=== PATIENT | female | born 1940 | race Caucasian/White ===

== ENCOUNTER 2016-05-31 19:12 | Inpatient (IN) ==
[2016-05-31 20:02] LABS: MANUAL DIFF NEEDED? NO
[2016-05-31 20:09] LABS: BASO% 0.1 % (0.0-0.8); EOS# 0.06 X1000 (0.0-0.7); EOS% 0.7 % (0.0-10.0); HEMATOCRIT 32.9 % (37.0-47.0); HEMOGLOBIN 10.6 g/dL (12.0-16.0); IMM GRAN# 0.06 X1000 (0.0-0.04); IMM GRAN% 0.7 % (0.0-0.5); LYMPH# 1.28 X1000 (1.2-3.4); MCHC 32.2 g/dL (33-37); MCV 96.2 FL (81-99); MONO# 0.74 X1000 (0.11-0.59); MONO% 8.1 % (1.7-9.3); MPV 11.5 FL (7.4-10.4); NEUT% 76.4 % (42.2-75.2); PLT 144 X1000 (130-400); RBC 3.42 XMIL (4.2-5.4)
[2016-05-31 20:32] LABS: ALBUMIN 3.5 g/dL (3.5-5.0); CALCIUM 8.7 mg/dL (8.8-10.2); TOTAL BILIRUBIN 0.8 mg/dL (0.20-1.00); TOTAL PROTEIN 7.3 g/dL (6.3-8.3)
--- NOTE | 2016-05-31 22:21 | PROVIDER DOCUMENTATION ---
This chart was entered by Nathalia Granda Scribe, acting as scribe for Dustin Contreras MD. HPI-Musculoskeletal Pain/Inj - GENERAL Chief Complaint: Extremity Pain Stated Complaint: abscess on toe Time Seen by Provider: 05/31/16 19:32 Source: patient, family - HX OF PRESENT ILLNESS-MUSKULOSKELTAL Nature of Presenting Problem: 75 Y/O F presents to ED with abscess on toe. Pt states that she saw her PCP this morning do the abscess, and whole on her left foot greater toe. Pt c/ of drainage and redness and swelling to toe. PCP prescribed antibiotics. Pt came in due to the continuous drainage. Onset 4 days ago. Quality of Pain: reports: aching Severity in ED: moderate, severe Onset/Duration: 4 days ago Timing: still present Any recent injury?: No Locality of Occurance: Home Similar Symptoms Previously?: No Recently seen or treated by another doctor?: Yes (05/31/16) - LOWER EXTREMITY PAIN/INJURY Lower Extremities Pain: 1st toe: right (abscess, swelling, redness ) Context / Method of Injury: reports: other Associated Symptoms: reports: denies symptoms Review of Systems - Adult - REVIEW OF SYSTEMS - ADULT Constitutional: reports: fever. denies: chills Eyes: reports: no symptoms reported Ears, Nose, Mouth & Throat: reports: no symptoms reported Cardiovascular: reports: no symptoms reported Respiratory: reports: no symptoms reported Gastrointestinal: reports: no symptoms reported Genitourinary: reports: no symptoms reported Musculoskeletal: reports: muscle aches (swelling,redness) Integumentary: reports: no symptoms reported Neurological: reports: no symptoms reported Psychiatric: reports: no symptoms reported Endocrine: reports: no symptoms reported Hematologic/Lymphatic: reports: no symptoms reported Allergic/Immunologic: reports: no symptoms reported All Other Systems: Reviewed and Negative Past History - Adult - PAST MEDICAL HISTORY-ADULT Review of Records: reports: Old Records Reviewed, Nursing Assessment Review, Medications Reviewed, Social history reviewed & non-contributory. Major Childhood Illnesses: reports: denies history Cardiovascular: reports: CHF, HTN, other (dysrhythmis) Respiratory: reports: asthma, COPD Gastrointestinal: reports: GERD Genitourinary: reports: kidney disease Neurological: reports: CVA Psychiatric: reports: anxiety Endocrine/Immune: reports: Diabetes Other Conditions: reports: other (pleural effusion) - PRIOR SURGERIES/PROCEDURES Surgical/Procedure History: reports: appendectomy, hysterectomy, tonsillectomy - IMMUNIZATION STATUS Childhood Immunizations: UTD Flu Vaccine: UTD - FAMILY HISTORY Family History: reviewed, not pertinent - SOCIAL HISTORY Smoking: quit greater than 1 year Living Situation: family Physical Exam-Injury Related - Physical Exam-Injury Related Initial Vital Signs Reviewed: Yes General Appearance: appears well, alert, no apparent distress Immobilization?: negative: backboard, C-collar Eyes: PERRL/EOMI, pink conjunctivae, fundi clear, no AV nicking Head, Ears, Nose, Mouth & Throat: normocephalic/atraumatic, moist mucous membranes, normal ENT inspection, TMs normal, pharynx normal Neck: non-tender, full range of motion, supple, normal inspection Respiratory: chest non-tender, lungs clear, normal breath sounds Cardiovascular: normal peripheral pulses Abdominal Exam: normal bowel sounds, non tender, soft Lymphatic: no adenopathy Back Exam: normal inspection Extremity: swelling (to left greater toe with a whole present on the anterior aspect of the toe.), tenderness Integumentary: normal color, warm/dry Neurologic: [employer] II-XII nml as tested Psych/Mental Status: normal mood/affect, normal thought content, normal thought process, oriented x 3 - Glascow Coma Score Best Eye Response (Echo): (4) open spontaneously Best Verbal Response (Justin): (5) oriented Best Motor Response (Justin): (6) obeys commands Echo Total: 15 Progress - PLAN OF CARE/RESULTS Progress/Plan/Lab Results: Vital Signs - 8 hr 05/31/16 19:13 Temperature 101.3 F H Pulse Rate 83 Respiratory Rate 18 Blood Pressure 104/062 O2 Sat by Pulse Oximetry 98 Laboratory Results - last 24 hr 05/31/16 05/31/16 05/31/16 19:24 19:49 19:49 WBC 9.13 RBC 3.42 L Hgb 10.6 L Hct 32.9 L MCV 96.2 MCH 31.0 MCHC 32.2 L RDW Std Deviation 14.3 Plt Count 144 MPV 11.5 H Immature Gran % (Auto) 0.7 H Neut % (Auto) 76.4 H Lymph % (Auto) 14.0 L [place] % (Auto) 8.1 Eos % (Auto) 0.7 Baso % (Auto) 0.1 Immature Gran # (Auto) 0.06 H Neut # (Auto) 6.98 H Lymph # (Auto) 1.28 Bartow # (Auto) 0.74 H Eos # (Auto) 0.06 Baso # (Auto) 0.01 Sodium 128 L Potassium 4.0 Chloride 91 L Carbon Dioxide 24 L Anion Gap 13 BUN 36 H Creatinine 2.2 H Estimated GFR/1.73 m2 22 BUN/Creatinine Ratio 16 Glucose 145 H POC Glucose 115 H Calculated Osmolality 268 Calcium 8.7 L Total Bilirubin 0.80 AST 24 ALT 15 Alkaline Phosphatase 63 Total Protein 7.3 Albumin 3.5 Globulin 4.0 Albumin/Globulin Ratio 1.0 Orders Category Date Time Status Admit - [facility] Routine AdmDCTranf 05/31/16 22:10 Ordered Activity - Strict Bedrest ORDERED Care 05/31/16 22:10 Active FSBS [Finger Stick Blood Sugar (ED)] DIRECTED Care 05/31/16 19:20 Active Vital Signs Order Q 8-HR .ASSESS Care 05/31/16 22:10 Active Diabetic Diet Diet 05/31/16 22:13 Active FOOT COMPLETE LEFT [RAD] Stat Exams 05/31/16 19:32 Taken CBC WITH DIFF [HEME] Stat Lab 05/31/16 19:49 Completed COMPREHENSIVE METABOLIC PANEL [CHEM] Stat Lab 05/31/16 19:49 Completed Clindamycin 900 mg/Ns Med 05/31/16 22:15 Active 900 mg in 50 ml IV Q8H Telemetry [OM.EQ] Routine Oth 05/31/16 22:10 Active Transfer/Admit Order [TRANSFER] Routine Transfer 05/31/16 22:17 Ordered Result Diagrams: 05/31/16 19:49 05/31/16 19:49 - XRAY 1 XRAY: Left XRAY Study: Foot Impression: Abnormal XRAY Interpretation: cellulitus - CONSULTS/PCP/HOSPITALIST Notification #1 *Consult/PCP/Hospitalist*: Dr. Cesar Time Discussed: 21:23 Reason/Comments: Admit at [facility] Consult Disposition: Admit (Admit Accepted family wants to stay at [facility] Hospitalist will be contacted) #2 Consult: Dr. Gonzalez Time Discussed: 21:52 Reason/Comments: Consulted with pt in ED #3 Consult: Dr. Ayala Time Discussed: 22:02 Reason/Comments: Admit Consult Disposition: Admit (Admit accepted) Departure - Departure Time of Disposition Decision: 22:19 DIAGNOSIS: Diabetic foot infection Degenerative arthritis Qualifiers: Osteoarthritis location: first carpometacarpal joint Osteoarthritis type: unspecified Laterality: left Qualified Code(s): M18.12 - Unilateral primary osteoarthritis of first carpometacarpal joint, left hand Disposition: ADMITTED INPATIENT 09 Certified Medical Emergency: Emergent Condition: Stable Referrals and Follow-Ups: Ori Dick Jr, MD [Primary Care Provider] - This chart was documented by the indicated scribe, (Nathalia Granda Scribe) and accurately reflects the services I performed and decisions made by me, Dustin Contreras MD, as attested by the provider's signature.
--- NOTE | 2016-05-31 23:20 | CONSULTATION ---
DATE OF CONSULTATION: 05/31/2016 HISTORY OF PRESENT ILLNESS: This is a 75-year-old ill, female, who has multiple medical problems, including diabetes, chronic kidney disease, and has had been on transient dialysis in the past. She was recently hospitalized in [place], when she was there with her , and had a fall and had a syncopal and neurologic cardiac workup that reportedly was negative. She went to her primary care physician's office earlier today with some pain and swelling of her left toe. He started her on oral antibiotics, but the daughter was concerned, and she brought her to the emergency department tonight. History is otherwise difficult given her dementia, but she does have some pain in her left foot. She has never had any vascular procedures. Not a smoker. PHYSICAL EXAM: vital signs: Temperature 101.3, pulse 83, blood pressure 104/62, oxygen saturation 98% on room air. General: She is alert, confused, speaks inappropriately, but does answer. Cardiovascular: Normal rate, regular rhythm. Pulmonary: No increased work of breathing. Abdomen: Soft, nontender, nondistended. Integument: Warm, dry. Peripheral vascular: There are 2+ pedal pulses. Palpable popliteal and femoral pulses. Normal capillary refill. Musculoskeletal: There is some edema over left foot, primarily over the left 1st toe, extending proximally to the metatarsals. There does appear to be a wound with some focal ulceration on the dorsal aspect, and some discoloration associated with this, but otherwise the toe is viable. I don't see any columba necrosis here, some cloudy drainage expressed. I don't see any other wounds, and otherwise the toe seems to be neurovascularly intact. Integument: Otherwise, warm and dry. I don't see any jaundice or rashes. No pretibial edema. Neurologic: She is confused, speaks inappropriately, but alert, and does attempt to answer questions. PAST MEDICAL HISTORY: 1. Chronic kidney disease with a history of dialysis. 2. Diabetes. 3. COPD. 4. Peripheral neuropathy. 5. Hypertension. 6. Gastroesophageal reflux disease. 7. Obstructive sleep apnea. 8. Congestive heart failure. 9. Coronary disease. 10. History of urinary tract infections with pyelonephritis. PAST SURGICAL HISTORY: Tonsillectomy, hysterectomy, cataract, benign breast biopsy. FAMILY HISTORY: Negative for cancer. REVIEW OF SYSTEMS: Ten point negative, except for what is mentioned in her HPI. LABS: White count is 9, hematocrit 32, platelets are 144,000. Sodium is 128, potassium 4.0, chloride 91, CO2 of 24, BUN is 36, creatinine is 2.2. Glucose 145. LFTs are normal. She does have an x-ray of the foot that shows some degenerative changes, and possibly some moth-eaten changes of her left 1st metatarsal head. ASSESSMENT AND PLAN: This 75-year-old, chronically ill white female, who has an infected diabetic toe on her left foot. I do not see any evidence of columba necrosis here. It was quite swollen and erythematous, normal perfusion to her feet bilaterally. PLAN: To admit to the hospitalist. We will continue her on IV antibiotics. We are quite limited given some anaphylactic reactions she has had to numerous antibiotics, but appears clindamycin will be our best option. We keep her NPO at midnight, just in case she were to worsen tomorrow and would require amputation, but I do not suspect that be the case. We will at least try antibiotics for the next several days to ensure that she isn't worsening. We will need to follow up with plain film x-rays. If there is concern for ostial on final report, she may need MRI to help guide antibiotic therapy, if we elect not to amputate. Discussed in detail with the daughter, who is here. She is a warp bleaching vat tender, and she understands the significance in this situation, but we will continue to follow her along, and we will make definitive wound care instructions tomorrow as we reassess. As for now, we will just keep it covered with a dry gauze, as there is not really an open wound currently. We will continue to follow along. cc: Timi Gonzalez MD
[2016-05-31] MEDS: CLINDAMYCIN 900 MG/NS 900 MG/50 ML IVPB IV SCH (23:58)
[2016-06-01 00:46] LABS: BILIRUBIN URINE NEGATIVE (NEGATIVE); BLOOD URINE 1+ (NEGATIVE); CLARITY SL. CLOUDY (CLEAR); COLOR YELLOW; GLUCOSE URINE NEGATIVE (NEGATIVE); LEUKOCYTES URINE 2+ (NEGATIVE); NITRITE URINE NEGATIVE (NEGATIVE); PROTEIN URINE 1+(30 mg/dL) mg/dL (NEGATIVE); UROBILINOGEN URINE NORMAL
[2016-06-01 01:15] LABS: URINE CULTURE PL NEEDED? YES; URINE EPITHELIAL CELLS <10 /HPF (<10); URINE SMALL ROUND CELLS TRANSITIONAL PRESENT; URINE SOURCE CATH; URINE WBC 20-40 /HPF (<10)
[2016-06-01] MEDS: CLINDAMYCIN 900 MG/NS 900 MG/50 ML IVPB IV SCH ×3 (06:04→22:07)
--- NOTE | 2016-06-01 08:20 | Diag Imaging Result Document ---
PROCEDURE NAME: FOOT COMPLETE LEFT - 05/31/2016 LEFT FOOT, 3 VIEWS: FINDINGS: There is hallux valgus. There are possible inflammatory arthritic changes at the 1st metatarsophalangeal joint with some erosions in the distal head of the 1st metatarsal, although the joint space does not appear substantially narrowed. There are apparent small subchondral cysts at the base of the proximal phalanx of the great toe. There are no other bony destructive changes to specifically suggest acute osteomyelitis. There is lateral subluxation of the proximal phalanx of the 2nd toe at the 2nd metatarsophalangeal joint which may be longstanding. There is no fracture or dislocation identified. There is calcaneal spurring at the Achilles tendon and plantar fascia insertions. IMPRESSION: Possible erosions at distal head of 1st metatarsal which may relate to inflammatory arthritis. Osteomyelitis at the distal head of the 1st metatarsal it is not excluded, however. Correlation with clinical evaluation is recommended. MTDD
[2016-06-01] MEDS ORDERED: ACTOS PO SCH (10:45)
[2016-06-01] MEDS ORDERED: NS 500 ML IV ONE (10:59)
[2016-06-01] MEDS: LYRICA PO SCH ×2 (11:06→21:12)
[2016-06-01] MEDS: TOPROL XL PO SCH (11:06)
[2016-06-01] MEDS: COZAAR PO SCH (11:06)
[2016-06-01] MEDS: NS 1,000 ML IV SCH (11:15)
[2016-06-01 11:54] LABS: MANUAL DIFF NEEDED? NO
--- NOTE | 2016-06-01 12:03 | HISTORY AND PHYSICAL ---
PRIMARY CARE PHYSICIAN: Dr. Ori Dick CHIEF COMPLAINT: Abscess on her great left toe. HISTORY OF PRESENTING ILLNESS: This is a 75-year-old female who presented to [facility] ER with an abscess to her left great toe. States that she saw her primary care physician on the morning of 05/31/2016 and that she was placed on some antibiotics. The abscess apparently continued to drain and so she came to the emergency room for further evaluation and treatment. She states that the area has been red erythematous and warm to touch for about 4 days prior to arrival. It is noted to be erythematous and edematous. Warm to touch. Draining a foul- smelling odor. Workup in the ER showed a sodium of 128 with a chloride of 91. Her BUN is 36 with a creatinine of 2.2, which is around her baseline. Her urine showed negative nitrites, 2+ white blood cells, 4+ bacteria. On arrival to the ER, she had a temperature of 101.3 degrees. Pulse was 83, respirations 18. Blood pressure at that time was 104/62. This a.m. her blood pressure dropped to 92/31. Temperature 99.8 degrees, and so she is being admitted for further evaluation and treatment. It is noted that the surgeon congregational care pastor, Dr. Luis Gonzalez saw her in the emergency room and states he did not see any columba necrosis. He feels that due to her multiple antibiotic allergies clindamycin is the best choice. He will continue to follow throughout her hospitalization. PAST MEDICAL HISTORY: Chronic kidney disease that has required intermittent dialysis in the past, diabetes type 2, peripheral neuropathy, hypertension, GERD, sleep apnea, CHF, coronary artery disease, and recurrent UTIs. PAST SURGICAL HISTORY: Appendectomy, tonsillectomy, hysterectomy, cataracts and a breast biopsy, FAMILY HISTORY: Noncontributory. SOCIAL HISTORY: She currently lives with her . Quit smoking greater than a year ago and denies any alcohol or illicit drug use. ALLERGIES: Cephalosporins, penicillin, sulfa, erythromycin, Levaquin, codeine, Macrobid and Haldol. HOME MEDICATIONS: 1. Cymbalta 60 mg p.o. at bedtime. 2. Cozaar 50 mg p.o. daily. 3. Toprol-XL 50 mg p.o. daily. 4. Actos 45 mg p.o. daily. 5. Lyrica 150 mg p.o. b.i.d. 6. Crestor 20 mg p.o. at bedtime. LABORATORY DATA: Showed a white blood cell count of 9.13. Hemoglobin 10.6, hematocrit 32.9, platelets 144,000. Sodium 128, potassium 4.0, chloride 91, CO2 24, BUN of 36 with a creatinine of 2.2, glucose 145, urinalysis with negative nitrites, 2+ white blood cells, and 4+ bacteria. X-ray of her left foot showed an impression of a possible erosion at the distal head of the 1st metatarsal which may relate to inflammatory arthritis, osteomyelitis at the distal head of the 1st metatarsal is not excluded, however. REVIEW OF SYSTEMS: She was positive for a subjective fever. Denied any dizziness, blurred vision, chest pain, coughing, shortness of breath, abdominal pain, constipation, or burning or hurting with urination. She is positive for pain to her left great toe. PHYSICAL EXAMINATION: VITAL SIGNS: On arrival, she had a temperature of 101.3 degrees pulse 83, respirations 18, blood pressure 104/62 saturating 98% on room air. Currently, she has a temperature of 99.8 degrees, pulse of 85 respirations 20, blood pressure 92/31, saturating 95% on room air. GENERAL: This is a 75-year-old female who is lying in the bed, and answers some questions appropriately. She does have a history of dementia with some mild confusion noted. HEENT: Normocephalic and atraumatic. Pupils are equal, round, reactive to light. Extraocular movements are intact. Oropharynx and nares are clear. NECK: Supple. LUNGS: Clear to auscultation bilaterally. Equal lung expansion and chest wall movement. Some mild expiratory wheezes in her lower lobes. ABDOMEN: Soft, nontender, nondistended. Bowel sounds are present x4 quadrants. EXTREMITIES: No clubbing, cyanosis. Patient is noted to have to her left great toe erythema, edema and warmth to touch, purulent drainage with foul smell. NEUROLOGICAL: The cranial nerves 2-12 appear grossly intact. ASSESSMENT: 1. A left great toe diabetic foot ulcer. 2. Urinary tract infection. 3. Hyponatremia. 4. Hypotension. 5. Diabetes type 2. 6. Chronic kidney disease. PLAN: She has been admitted to the medical unit at [facility]. Placed on telemetry, diabetic diet/ Dr. Luis Gonzalez from surgery is following. We will have wound care to consult. We will check a hemoglobin A1c. We will recheck a CBC and a BMP today. Culture is pending. Wound culture is pending. Continue her clindamycin 900 mg IV q.8. Continue home medications. We gave her a 500 mL normal saline bolus and then will run at normal saline at 75 mL an hour. We will place her on patterned blood sugars with sliding scale insulin. Dictated by AARON Jesus for Jose Ayala MD cc: MD Sierra Gross Jr, CRNP Raphael K. Quansah, MD
[2016-06-01 12:10] LABS: CALCIUM 8.2 mg/dL (8.8-10.2); HEMOGLOBIN A1C 6.1 % (4.8-6.0); POTASSIUM 3.6 mmol/L (3.5-5.1)
[2016-06-01 12:25] LABS: BASO% 0.2 % (0.0-0.8); EOS# 0.15 X1000 (0.0-0.7); EOS% 1.7 % (0.0-10.0); HEMATOCRIT 26.5 % (37.0-47.0); HEMOGLOBIN 8.6 g/dL (12.0-16.0); IMM GRAN# 0.05 X1000 (0.0-0.04); IMM GRAN% 0.6 % (0.0-0.5); LYMPH# 1.41 X1000 (1.2-3.4); LYMPH% 16.1 % (20.5-51.1); MCH 31.5 PG (27-31); MCHC 32.5 g/dL (33-37); MCV 97.1 FL (81-99); MONO# 0.61 X1000 (0.11-0.59); MPV 11.1 FL (7.4-10.4); NEUT% 74.4 % (42.2-75.2); PLT 136 X1000 (130-400); RBC 2.73 XMIL (4.2-5.4)
--- NOTE | 2016-06-01 13:56 | PROGRESS NOTE ---
DATE: 06/01/2016 SUBJECTIVE: The pain in her toe really unchanged overnight. No more fever since the ER, persistent purulent drainage. OBJECTIVE: Temperature is 99.4 degrees, pulse 77, blood pressure 96/37, oxygen saturation 96% on room air.General: She is alert, in no acute distress. HEENT: There is no scleral icterus. Cardiovascular: Normal rate, regular rhythm. Pulmonary: No increased work of breathing. Her left foot is well perfused. The left 1st toe extending to the distal metatarsals across her foot is erythematous and swollen. There is a wound on the lateral aspect of her 1st toe in the interdigital space that probes to the joint. There is purulent drainage from this and there is some early necrosis of the skin in this area although the majority of the toe is perfused and viable. White count down to 8 this morning, 26 is her hematocrit. Platelets are 136,000. Creatinine is 2.8. This is up from 2.2 which is near her baseline. Glucose 209. Hemoglobin A1c is 6.1. X-ray obtained last night showed some osteolytic changes in the distal metatarsal of the 1st digit concerning for osteomyelitis. ASSESSMENT AND PLAN: A 75-year-old female with infected left 1st diabetic toe wound. I suspect she is going to progress to losing this toe. I recommended amputation of this tomorrow however she has refused and stated she wished to keep her toe. The and daughter are at the bedside and they do not have strong opinions about this either way. In the meantime, I will talk to her daughter who is a motor racer who I spoke with last night and explained the situation. Will continue IV clindamycin given her multiple drug allergies we are quite limited in what we are able to give her and will initiate Betadine b.i.d. to the toe wound. I did open it to facilitate some drainage of this wound and wound cultures are pending. Long discussion about the possible progression of this infection to involve adjacent toes or even her foot increasing the level of amputation required to remove the infected tissue. We discussed at the minimum, a long IV course to treat osteomyelitis of the 1st toe and in the setting of amputation prolonged wound healing up to a month at least with wound VAC therapy. She understands that this is all in the realm of possibilities but does not want to pursue amputation at this point, despite risk of worse outcomes. cc: Timi Gonzalez MD
[2016-06-01] MEDS: HUMALOG DOSE (PARKWAY) SUBQ SCH ×2 (16:53→21:13)
[2016-06-01] MEDS: AZACTAM 0.5 GM in NS 50 ML IV SCH (19:21)
--- NOTE | 2016-06-01 20:04 | PROGRESS NOTE ---
DATE: 06/01/2016 SUBJECTIVE: Today Ms. Gonzales referred to be doing fine. She did not have any major complaints. OBJECTIVELY: Vital Signs: Blood pressure is 119/60, pulse of 77 respirations 20, temperature is 99.3 degrees. General: Ms. Gonzales is a 75-year-old, female. She is in bed and does not seem to be in any distress. HEENT: Mucus is pink and moist. Anicteric. Acyanotic. Neck: Supple. Chest: Good air entry bilaterally. No crepitations and no rhonchi. Cardiovascular: Regular rate and rhythm. No murmurs, no rubs, no gallops. Abdomen: Soft. Extremities: No pedal edema. The left toe is wrapped up in sterile dressing. LABORATORY DATA: WBC is 8.75, hemoglobin is 8.6, platelet count of 136,000. Chemistry: sodium 134, potassium 3.6, chloride 99, bicarb is 25, BUN is 46, creatinine is 2.8, A1c is 6.1. An x-ray of the foot did show possible erosion at the distal head of the fifth metatarsal, osteomyelitis at the distal head of the metatarsal is not excluded. ASSESSMENT: 1. Diabetic foot to the left great toe with suspected osteomyelitis. 2. Diabetes type 2. Patient is well-controlled on oral diabetic medication, however, we will use insulin here in the hospital as we control her infection. 3. 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 4. Hyponatremia on presentation likely from dehydration. Patient is getting some baseline gentle hydration. 5. Patient seems to have a lot of allergies to multiple things including cephalosporin and penicillin. She does not really know what they do to her but she just knows from the beginning that she is allergic to them. The patient is currently on clindamycin which will do very well with MRSA and gram-positive but does not have any gram-negative coverage. We will use aztreonam for gram-negative support until we have the final ID and sensitivity of whatever is causing the diabetic foot.. cc: Jose Ayala MD
[2016-06-01] MEDS: CRESTOR PO SCH (21:12)
[2016-06-01] MEDS: CYMBALTA PO SCH (21:13)
[2016-06-01] MEDS: LANTUS INSULIN (PARKWAY) SUBQ SCH (21:13)
[2016-06-01] MEDS ORDERED: AMBIEN PO PRN (21:22)
[2016-06-02] MEDS: NS 1,000 ML IV SCH (05:10)
[2016-06-02] MEDS: CLINDAMYCIN 900 MG/NS 900 MG/50 ML IVPB IV SCH ×4 (05:10→21:24)
[2016-06-02] MEDS: AZACTAM 0.5 GM in NS 50 ML IV SCH ×2 (06:21→18:18)
[2016-06-02] MEDS: HUMALOG DOSE (PARKWAY) SUBQ SCH ×4 (06:22→21:24)
[2016-06-02 06:51] LABS: BASO% 0.4 % (0.0-0.8); EOS# 0.23 X1000 (0.0-0.7); EOS% 2.8 % (0.0-10.0); HEMATOCRIT 26.2 % (37.0-47.0); HEMOGLOBIN 8.6 g/dL (12.0-16.0); IMM GRAN% 1.2 % (0.0-0.5); LYMPH# 2.27 X1000 (1.2-3.4); LYMPH% 27.5 % (20.5-51.1); MANUAL DIFF NEEDED? YES; MCH 31.9 PG (27-31); MCHC 32.8 g/dL (33-37); MONO# 0.62 X1000 (0.11-0.59); MONO% 7.5 % (1.7-9.3); MPV 11.1 FL (7.4-10.4); NEUT% 60.6 % (42.2-75.2); PLT 163 X1000 (130-400)
[2016-06-02 07:25] LABS: POTASSIUM 3.7 mmol/L (3.5-5.1)
[2016-06-02 07:56] LABS: EOS 2 % (1-10); LYMPHS 32 % (21-51); MONO 10 % (1-9)
[2016-06-02] MEDS: COZAAR PO SCH (08:58)
[2016-06-02] MEDS: LYRICA PO SCH ×2 (08:58→21:22)
[2016-06-02] MEDS: TOPROL XL PO SCH (08:58)
--- NOTE | 2016-06-02 12:21 | PROGRESS NOTE ---
DATE: 06/02/2016 SUBJECTIVE: This patient states that she is doing fine, she is not complaining of any pain at this moment, no fever, no chills. No shortness of breath. No chest pain. OBJECTIVE: Vital Signs: Temperature 98 degrees, pulse 76, respiratory rate 18 , blood pressure 100/70, O2 saturation 98% on room air. HEENT: Head normocephalic. No trauma. PERRLA. Neck: Supple. No JVD. No masses. Central trachea. Chest: Clear to auscultation. No wheezing. No rales. Cardiovascular: RRR. No murmurs. Abdomen: Soft, nontender, nondistended. No hepatosplenomegaly. Obese. Extremities: The 1st left toe is wrapped up in a sterile dressing and I did not remove the dressing. LABORATORY: WBC 8, hemoglobin 8.6, hematocrit 26.2, platelets 163,000. Sodium 136, potassium 3.7, chloride 102, bicarbonate 22, BUN 57, creatinine 3.1, glucose 110, calcium 8. ASSESSMENT AND PLAN: 1. Diabetic foot, left great toe with suspected osteomyelitis, surgery department has evaluated this patient. They have recommended amputation but this patient has been refusing, we will get some images and then as per the patient they will decide the will re- evaluate the situation again on Sunday and decide if she needs surgery or not. 2. Type 2 diabetes. We will continue with insulin during her host hospitalization, it is controlled. 3. Chronic kidney disease. Continue to monitor. 4. Hyponatremia, resolved. 5. Multiple allergies to antibiotics. She is not quite sure about what kind of reaction she had when she used cephalosporin on penicillin; for now, we will continue with clindamycin and aztreonam to have good bacterial coverage. I had a long conversation with the patient and also with family members, 1 daughter and and I told them that I do believe that this patient needs to get surgery. I do not think she is going to get better just with antibiotics and wound care, we will wait for the results of the 3 phase bone scan. cc: Florentino Almanza MD MTDD
--- NOTE | 2016-06-02 13:01 | PROGRESS NOTE ---
DATE: 06/02/2016 SUBJECTIVE: Feels okay. Says she has pain in her toe and drainage. They are doing dressing changes. OBJECTIVE: Vital Signs: Temperature is 98.0, pulse 68, blood pressure 90/40, oxygen saturation 98% on room air. General: She is alert and oriented. Cardiovascular: She has 2+ pedal pulses in her foot. Abdomen: Soft, nontender. Extremities: Her left 1st toe remains swollen. There is an evolving wound and drainage from the medial aspect that continues, and is purulent. It is painful to palpation. The erythema of her foot is maybe regressing slightly. It is only on the distal forefoot not progressing up the leg. LABS: White count is 8, hematocrit 26, platelets 163,000. Glucose is 110. Wound culture growing gram-negative rods. ASSESSMENT AND PLAN: This is a 75-year-old female with an infected diabetic left 1st toe. I have recommended amputation now for the last 48 hours and she refuses. The family and her , both and her daughter have been here. I have attempted to call her other daughter and she has been on unreachable by phone. I have discussed the risk of prolonging the amputation meaning progression of infection, systemic illness or even to involve more of her foot, increase in ultimate amputation level. She understands that these are all possibilities but adamantly does not want to have her toe removed and understand this. It does not seem to be making her systemically ill. She is not having fevers. Her white count remains normal and if anything, the cellulitis is gradually regressing in her foot, not progressing, but the toe, I suspect, will not improve. She has adequate flow with good pedal pulses. Meantime, would continue antibiotics. She has multiple allergies. It is growing gram-negative rods but will continue to follow along with local wound care and antibiotics. cc: MD PAOLA Vargas
--- NOTE | 2016-06-02 14:06 | Diag Imaging Result Document ---
PROCEDURE NAME: 3 PHASE BONE SCAN - 06/02/2016 THREE PHASE BONE SCAN WITH CONED DOWN IMAGING OVER THE ANKLES AND FEET: FINDINGS: 25.9 mCi of MDP were administered. There is increased activity in the left lower extremity on the immediate blood flow images. This persists on the blood pool images from 5 to 15 minutes and localizes in the vicinity of the first toe of the left foot. Delayed images show continued increased activity within the first toe. There is also increased activity in the mid left foot compared to the right on the delayed images. IMPRESSION: Findings suspicious for osteomyelitis of the left first toe.
[2016-06-02] MEDS: CRESTOR PO SCH (21:22)
[2016-06-02] MEDS: CYMBALTA PO SCH (21:22)
[2016-06-02] MEDS: LANTUS INSULIN (PARKWAY) SUBQ SCH (21:29)
[2016-06-03] MEDS: CLINDAMYCIN 900 MG/NS 900 MG/50 ML IVPB IV SCH ×3 (05:39→21:42)
[2016-06-03] MEDS: NS 1,000 ML IV SCH ×2 (05:40→21:41)
[2016-06-03 05:44] LABS: MANUAL DIFF NEEDED? NO
[2016-06-03 06:01] LABS: BASO% 0.2 % (0.0-0.8); EOS# 0.19 X1000 (0.0-0.7); EOS% 3.5 % (0.0-10.0); HEMATOCRIT 27.6 % (37.0-47.0); HEMOGLOBIN 8.8 g/dL (12.0-16.0); IMM GRAN# 0.08 X1000 (0.0-0.04); IMM GRAN% 1.5 % (0.0-0.5); LYMPH# 1.45 X1000 (1.2-3.4); LYMPH% 26.6 % (20.5-51.1); MCH 30.4 PG (27-31); MCHC 31.9 g/dL (33-37); MCV 95.5 FL (81-99); MONO# 0.43 X1000 (0.11-0.59); MONO% 7.9 % (1.7-9.3); NEUT% 60.3 % (42.2-75.2); PLT 176 X1000 (130-400); RBC 2.89 XMIL (4.2-5.4)
[2016-06-03 06:21] LABS: POTASSIUM 4.1 mmol/L (3.5-5.1)
[2016-06-03] MEDS: HUMALOG DOSE (PARKWAY) SUBQ SCH ×4 (06:40→21:45)
[2016-06-03] MEDS: AZACTAM 0.5 GM in NS 50 ML IV SCH ×2 (06:45→18:21)
[2016-06-03] MEDS: LYRICA PO SCH ×2 (09:10→21:44)
[2016-06-03] MEDS: COZAAR PO SCH (09:11)
[2016-06-03] MEDS: TOPROL XL PO SCH (09:11)
--- NOTE | 2016-06-03 15:09 | PROGRESS NOTE ---
DATE: 06/03/2016 SUBJECTIVE: This patient states that she is doing fine. She thinks that the foot is getting better. She is not complaining of pain and she is moving her toes better. No fever. No chills. No shortness of breath. No chest pain. OBJECTIVE: Vital Signs: Temperature 98.6 degrees, pulse 66, respiratory rate 18, blood pressure 116/62, and oxygen saturation 96% on room air. HEENT: Head normocephalic. No trauma. PERRLA. Neck: Supple. No JVD. No masses. Central trachea. Chest: Clear to auscultation. No wheezing. No rales. Cardiovascular: RRR. No murmurs. Abdomen: Soft, nontender, nondistended. No hepatosplenomegaly. Obese. Extremities: The 1st left toe is wrapped up in a sterile dressing. I did not remove the dressing. Neurological: The patient is alert and oriented x3. She moves all 4 extremities. LABORATORY: WBC 5.4, hemoglobin 8.8, hematocrit 27.6, platelets 176,000. Sodium 141, potassium 4.1, chloride 108, bicarbonate 21, BUN 53, creatinine 2.2, glucose 112, calcium 8. ASSESSMENT AND PLAN: 1. Diabetic foot. The left great toe is with suspected osteomyelitis. We did a bone scan that is suspicious for osteomyelitis, left 1st toe. I notified that to the patient, family members at the bedside. Surgery evaluated this patient and they have recommended amputation, but this patient is refusing. I think they are waiting until Sunday to decide whether or not this patient needs to go to the OR. 2. Type 2 diabetes. We will continue with insulin during the hospitalization. It is controlled. Continue with the same management. 3. Chronic kidney disease. Continue to monitor. This is her baseline. 4. Hyponatremia, resolved. 5. Multiple allergies to antibiotics. Aware. Apparently, she is allergic to penicillin/cephalosporin. She does not know what kind of reaction those medications can produce in her. cc: Florentino Almanza MD
[2016-06-03] MEDS: CRESTOR PO SCH (21:44)
[2016-06-03] MEDS: CYMBALTA PO SCH (21:44)
[2016-06-03] MEDS: LANTUS INSULIN (PARKWAY) SUBQ SCH (21:45)
[2016-06-04] MEDS: AZACTAM 0.5 GM in NS 50 ML IV SCH ×3 (04:32→16:15)
[2016-06-04] MEDS ORDERED: AZACTAM 0.5 GM in NS 50 ML IV ONE ×4 (05:00)
[2016-06-04] MEDS: CLINDAMYCIN 900 MG/NS 900 MG/50 ML IVPB IV SCH ×3 (05:52→22:49)
[2016-06-04] MEDS: HUMALOG DOSE (PARKWAY) SUBQ SCH ×4 (06:03→20:30)
[2016-06-04 06:14] LABS: MANUAL DIFF NEEDED? NO
[2016-06-04 06:30] LABS: BASO% 0.4 % (0.0-0.8); EOS# 0.19 X1000 (0.0-0.7); EOS% 3.8 % (0.0-10.0); HEMATOCRIT 27.3 % (37.0-47.0); HEMOGLOBIN 8.7 g/dL (12.0-16.0); IMM GRAN# 0.21 X1000 (0.0-0.04); IMM GRAN% 4.2 % (0.0-0.5); LYMPH# 1.64 X1000 (1.2-3.4); LYMPH% 32.4 % (20.5-51.1); MCH 30.5 PG (27-31); MCHC 31.9 g/dL (33-37); MCV 95.8 FL (81-99); MONO# 0.42 X1000 (0.11-0.59); MONO% 8.3 % (1.7-9.3); MPV 10.8 FL (7.4-10.4); NEUT% 50.9 % (42.2-75.2); PLT 192 X1000 (130-400); RBC 2.85 XMIL (4.2-5.4)
[2016-06-04 06:42] LABS: POTASSIUM 4.7 mmol/L (3.5-5.1)
[2016-06-04] MEDS: LYRICA PO SCH ×2 (08:31→20:27)
[2016-06-04] MEDS: TOPROL XL PO SCH (08:31)
[2016-06-04] MEDS: COZAAR PO SCH (08:31)
--- NOTE | 2016-06-04 10:27 | PROGRESS NOTE ---
DATE: 06/04/2016 SUBJECTIVE: Kalli Saenz is a 75-year-old white female, diabetic. She was admitted with drainage involving her right great toe. A bone scan suggests that she has osteomyelitis as does her physical exam. OBJECTIVE: She still has some purulence draining from the base of her toe. It is clear that it involves the bone and joint. Her cellulitis of her foot is improving on IV antibiotics with local wound care. One of her family members is a residential aide and I spoke with her and the patient's at the bedside about her wound and answered questions. I feel ultimately that it will need to be amputated. She does have a palpable dorsalis pedis pulse. ASSESSMENT/PLAN: We redressed the wound I will allow Dr. Gonzalez and the family to make further decisions. Right now she remains on IV antibiotics. cc: Rhea Dow MD
[2016-06-04] MEDS: NS 1,000 ML IV SCH (13:56)
[2016-06-04] MEDS ORDERED: CALMOSEPTINE OINTMENT TOP PRN (14:27)
--- NOTE | 2016-06-04 15:50 | PROGRESS NOTE ---
DATE: 06/04/2016 SUBJECTIVE: This patient states that she is doing fine. Surgery Department is on board. Probably this patient will need amputation. I have explained that to the family members and they seem to understand. OBJECTIVE: Vital Signs: Temperature 98.3 degrees, pulse 60, respiratory rate 20, blood pressure 123/53, oxygen saturation 98% on room air. HEENT: Head normocephalic. No trauma. PERRLA. Neck: Supple. No JVD. No masses. Central trachea. Chest: Clear to auscultation. No wheezing. No rales. Abdomen: Soft, nontender, nondistended. No hepatosplenomegaly. Obese. Extremities: The 1st left toe he wrapped. I did not remove the dressing, but Surgery did. Neurological: The patient is alert and oriented x3. She moves all 4 extremities. LABORATORY: WBC 5, hemoglobin 8.7, hematocrit 27.3, platelets 192,000. Sodium 140, potassium 4.7, chloride 109, bicarbonate 20, BUN 39, creatinine 1.7, glucose 92, calcium is 8. ASSESSMENT AND PLAN: 1. Diabetic foot. The left great toe is probably with osteomyelitis. Bone scan corroborated this information, Surgery Department is on board and they will make a decision, hopefully tomorrow for further treatment. 2. Type 2 diabetes. This is controlled. Continue with sliding scale. 3. Chronic kidney diseased. Continue to monitor. This is her baseline. 4. Hyponatremia, resolved. 5. Multiple allergies to antibiotics. Aware. Apparently she is allergic to penicillins/cephalosporin. She does not know what kind of reaction dose medication can produce on hair. cc: Florentino Almanza MD
[2016-06-04] MEDS: CRESTOR PO SCH (20:27)
[2016-06-04] MEDS: CYMBALTA PO SCH (20:27)
[2016-06-04] MEDS: LANTUS INSULIN (PARKWAY) SUBQ SCH (20:31)
[2016-06-05] MEDS: NS 1,000 ML IV SCH ×2 (02:22→21:33)
[2016-06-05] MEDS: AZACTAM 0.5 GM in NS 50 ML IV SCH (05:13)
[2016-06-05] MEDS: CLINDAMYCIN 900 MG/NS 900 MG/50 ML IVPB IV SCH (05:17)
[2016-06-05] MEDS: HUMALOG DOSE (PARKWAY) SUBQ SCH ×4 (06:02→21:34)
[2016-06-05 06:33] LABS: CALCIUM 8.3 mg/dL (8.8-10.2); POTASSIUM 4.7 mmol/L (3.5-5.1)
[2016-06-05 06:50] LABS: INR 1.06 (0.86-1.15); PROTIME 14.1 Seconds (12.1-15.5)
[2016-06-05 07:08] LABS: BASO% 0.7 % (0.0-0.8); EOS# 0.16 X1000 (0.0-0.7); EOS% 2.9 % (0.0-10.0); HEMATOCRIT 28.6 % (37.0-47.0); HEMOGLOBIN 9.3 g/dL (12.0-16.0); IMM GRAN# 0.34 X1000 (0.0-0.04); IMM GRAN% 6.1 % (0.0-0.5); LYMPH# 1.71 X1000 (1.2-3.4); LYMPH% 30.5 % (20.5-51.1); MANUAL DIFF NEEDED? YES; MCH 31.1 PG (27-31); MCHC 32.5 g/dL (33-37); MCV 95.7 FL (81-99); MONO# 0.39 X1000 (0.11-0.59); MPV 10.6 FL (7.4-10.4); NEUT% 52.8 % (42.2-75.2); PLT 209 X1000 (130-400); RBC 2.99 XMIL (4.2-5.4)
[2016-06-05 07:23] LABS: BANDS 10 % (0-1); EOS 6 % (1-10); LYMPHS 20 % (21-51)
[2016-06-05 07:25] LABS: HYPOCHROM 1+
[2016-06-05] MEDS: COZAAR PO SCH (09:35)
[2016-06-05] MEDS: LYRICA PO SCH ×2 (09:35→21:32)
[2016-06-05] MEDS: TOPROL XL PO SCH (09:35)
--- NOTE | 2016-06-05 09:41 | PROGRESS NOTE ---
DATE: 06/05/2016 SUBJECTIVE: Patient states that she is doing better. She denies any fever, chills, shortness of breath, cough. OBJECTIVE: Vital Signs: Blood pressure is 98/50 with a heart rate of 60, respirations are 18, temperature is 98.1 oral with a room air saturation of 97-100%. Cardiovascular : Regular rate and rhythm. S1 and S2 appreciated. Pulmonary: Breath sounds are clear with no increased work of breathing noted. Gastrointestinal: Abdomen is soft, nontender, nondistended with bowel sounds in all 4 quadrants. Extremities: No clubbing, cyanosis or edema. She does have dressing dry and intact to her first left toe. Calves are nontender. Neurologic: She is alert and oriented x3 with cranial nerves 2-12 grossly intact. LABS: WBC is 5.6 with hemoglobin 9.3, hematocrit 28.6, and platelets of 209. Sodium is 140, potassium 4.7, BUN 35, creatinine 1.7 with a glucose of 80. ASSESSMENT AND PLAN: 1. Osteomyelitis, left great toe in a diabetic patient. We will continue with her current regimen. The plan is for Dr. Gonzalez to discuss further treatment with possibly surgery today. 2. Diabetes type 2. We will continue with pattern blood glucose with sliding scale insulin. 3. Chronic kidney disease. She is at her baseline. We will continue to monitor and adjust medications as appropriate. 4. Hyponatremia, resolved. 5. Multiple allergies to medications. This is noted. Dictated by AARON Matthews for Isreal Oh MD cc: AARON Matthews Addendum: I personally evaluated and examined the patient in conjunction to the [employer] and agreed with her assessments and plans. Awaiting for surgery. Family and patient did not want surgery. Her daughter who is a vet and want to take her to the vet center to do phototherapy for her osteomyelitis. Her daughter also informed us that the wound smelled like pseudomonas but cultures did not grow out pseudomonas. I informed her that we will not put her on abx for pseudomonas MTDD
--- NOTE | 2016-06-05 09:47 | Diag Imaging Result Document ---
PROCEDURE NAME: CHEST-PORTABLE - 06/05/2016 SINGLE FRONTAL RADIOGRAPH OF THE CHEST: COMPARISON: 11/04/2013. FINDINGS: There is a recently placed left PICC line. The tip projects over the lower SVC just superior to the atriocaval junction in the expected position. The lungs are clear otherwise. There is no definite pleural fluid collection. Cardiac silhouette and central vasculature are unremarkable. IMPRESSION: Recent placement of left PICC line in the expected position as described. No definite acute pathology, otherwise.
[2016-06-05] MEDS ORDERED: NS 500 ML ONE (10:36)
--- NOTE | 2016-06-05 12:40 | PROGRESS NOTE ---
DATE: 06/05/2016 SUBJECTIVE: Toe feels better, less painful. OBJECTIVE: No fevers. Temperature this afternoon is 97.5, pulse 57, blood pressure 139/66, oxygen saturation 99% on room air. In general, she is alert. Integument warm and dry. Feet are well perfused. The lateral aspect of the 1st interdigital space has some purulent drainage here and is soft mushy tissue. The distal digit is perfused, and the remaining toes 2 through 5 are all well perfused. Cellulitis extending up the foot as is the edema is receding. Palpable pedal pulses. LABORATORY DATA: White count 5, hematocrit 28. Creatinine is 1.7, glucose is 80. Wound culture show Proteus; urine Escherichia coli; both hensley susceptible. ASSESSMENT AND PLAN: A 75-year-old female with infected 1st diabetic toe infection. I recommended debridement which would entail amputation, however, they refused this. She clinically is improving somewhat, especially with the cellulitis of her foot with IV antibiotics, but she has an open wound with changes extending down to the level of the joint and bone scan consistent with osteomyelitis of the 1st toe. Long discussion recommending amputation. The patient continue to refuse and would like to proceed with local wound care and IV antibiotics. Discussed risk of infection progressing to require up to transmetatarsal or below-knee amputation. She understands this, but I think this is unlikely to heal. I did discuss long-term likelihood of losing her toes high. She understands. I will see her back in [facility] next Sunday. I can follow her here. In the meantime, continue Betadine paint twice daily. I have ordered her rocker bottom shoe to help protect the toe, and she has a PICC line and the medicine doctors are planning IV antibiotics at home. cc: Timi Gonzalez MD [facility]
[2016-06-05] MEDS ORDERED: ROCEPHIN 2 GM/NS 2 GM/50 ML IVPB IV SCH (14:00)
[2016-06-05] MEDS: AZACTAM 1 GM in NS 50 ML IV SCH ×2 (14:32→21:33)
[2016-06-05] MEDS: CYMBALTA PO SCH (21:33)
[2016-06-05] MEDS: CRESTOR PO SCH (21:33)
[2016-06-05] MEDS: LANTUS INSULIN (PARKWAY) SUBQ SCH (21:34)
[2016-06-06] MEDS: NS 1,000 ML IV SCH (03:29)
[2016-06-06] MEDS: HUMALOG DOSE (PARKWAY) SUBQ SCH ×2 (06:25→11:03)
[2016-06-06] MEDS: AZACTAM 1 GM in NS 50 ML IV SCH (06:25)
[2016-06-06] MEDS: COZAAR PO SCH (08:11)
[2016-06-06] MEDS: TOPROL XL PO SCH (08:11)
[2016-06-06] MEDS: LYRICA PO SCH (08:11)
[2016-06-06 11:40] VITALS: BP 131/60
--- NOTE | 2016-06-07 06:45 | DISCHARGE SUMMARY ---
ADMISSION DATE: 05/31/2016 DISCHARGE DATE: 06/06/2016 PRIMARY CARE PHYSICIAN: Ori Dick Jr., MD SURGEON: Timi Gonzalez MD DIAGNOSES: 1. Osteomyelitis, left great toe in a diabetic patient. 2. Diabetes type 2 with an A1c of 6.1. 3. Chronic kidney disease with a baseline creatinine of 2 to 2.2. 4. Electrolyte imbalance, resolved. 5. Peripheral neuropathy. 6. Hypertension. 7. Gastroesophageal reflux disease. 8. Obstructive sleep apnea. 9. Urinary tract infection with Escherichia coli, pansensitive. 10. Left great toe wound culture, Proteus mirabilis, pansensitive. 11. Multiple drug allergies. HOSPITAL COURSE: Ms. Gonzales presented to the emergency room with an infected diabetic ulcer on her left foot. On admission, it was swollen and erythematous. She was evaluated by Dr. Luis Gonzalez with General Surgery. Bone scan did reveal osteomyelitis. Due to her multiple allergies, she was covered with clindamycin and aztreonam, which she has tolerated well. Through the hospitalization, redness has resolved. Drainage has resolved. Dr. Gonzalez did have a long discussion with the patient as well as her and daughter regarding this infection and osteomyelitis recommending amputation. The patient refused amputation. She requested to proceed with local wound care and IV antibiotics. He did discuss the fact that this infection could progress to require up to transmetatarsal or [id number] amputation. She did understand. She continued to wish to try to save the toe. A PICC line was placed. She will be discharged with [facility], as well as Home Health at receiving aztreonam 1 g every 8 hours for 6 weeks and follow up with wound care of Betadine paint twice a day with dry gauze, following with Dr. Gonzalez and the [facility] weekly. Her wound culture did grow Proteus. She did have a UTI which grew E. coli, which both for hensley susceptible. We did follow blood sugars while in the hospital. She did have an A1c of 6.1 with blood sugars that were in the 100-150 range but over the last 24 hours have been in the 80 to 100 range. PHYSICAL EXAMINATION: Cardiovascular: Regular rate and rhythm. S1 and S2 appreciated. Pulmonary: Breath sounds are clear with no increased work of breathing noted. Gastrointestinal: Soft, nontender, nondistended with bowel sounds in all 4 quadrants. Neurologic : She is alert and oriented x3. Extremities: No clubbing, cyanosis, or edema. Pulses are palpable x4. Calves are nontender. She does have a dry and intact dressing to her left great toe. A PICC line is in place with site clear. DIAGNOSTICS: On 05/31/2016, foot x-ray revealed possible erosions at the distal head of the 1st metatarsal which may relate to inflammatory arthritis. Osteomyelitis at the distal head of the 1st metatarsal is not excluded. On 06/02/2016, bone scan, 3-phase over the ankles and feet revealed findings suspicious for osteomyelitis of the left 1st toe. On 06/05/2016, chest x-ray revealed placement of the PICC line at the expected position which projects over the lower SVC just superior to that atrial caval junction. Lungs are clear with no definite pleural fluid collection. Cardiac silhouette and central vasculature are unremarkable. Microbiology: Urine culture revealed E. coli, ESBL negative, hensley susceptible Wound culture left great toe revealed Proteus mirabilis, hensley susceptible. PHYSICAL EXAMINATION: Discharge Vital Signs: Blood pressure is 119/51 with a heart rate of 62, respirations 18, temperature 97.7 degrees oral with room air saturations are 98 % to 99%. DISCHARGE ACTIVITY: As tolerated. FOLLOWUP: 1. She will follow up with Dr. Gonzalez in [facility] next week. 2. Dr. Santos Velez, Infectious Disease, in [address] Ori Dick in 2-3 weeks. DISCHARGE MEDICATIONS: Aztreonam 1 g q.8 hours x6 weeks, Cymbalta 60 mg at bedtime, Cozaar 50 mg daily, Toprol-XL 50 mg daily, Lyrica 150 mg b.i.d., Crestor 20 mg at bedtime, Ambien 5 mg at bedtime p.r.n. DISCHARGE PLAN: She will have home health care through [facility]. She has been given a prescription for a postop shoe per Dr. Gonzalez's orders to wear when ambulating. CONDITION: She is being discharged home in stable condition with family members. TIME SPENT: This is a greater than 30 minute discharge. Dictated by AARON Matthews for Isreal Esvin Oh MD cc: AARON Matthews Addendum: I personally evaluated and examined the patient in conjunction to the [employer] and agreed with her plans and dispositions. Her daughter who is water regulator and valve repairer wants to do phototherapy for her mother's osteomyelitis instead of surgery. She also insists that her mother's wound smell like pseudomonas although cultures did not grew out pseudomonas. We will only treat based on cultures MTDD
== END 2016-06-06 12:26 | disposition home health service (06) ==
LOC: P.ED 19:12 → P.MEDSURG 19:12 → SUATTDRO 22:33 → OBSVTOIN 22:33
PROVIDERS: ATTEND Internal Medicine

== ENCOUNTER 2018-03-16 10:10 | Inpatient (IN) ==
[2018-03-16 11:03] LABS: URINE SOURCE CATH
[2018-03-16 11:11] LABS: BILIRUBIN URINE NEGATIVE (NEGATIVE); BLOOD URINE NEGATIVE (NEGATIVE); COLOR YELLOW; GLUCOSE URINE NEGATIVE (NEGATIVE); KETONE URINE NEGATIVE (NEGATIVE); LEUKOCYTES URINE NEGATIVE (NEGATIVE); NITRITE URINE NEGATIVE (NEGATIVE); PROTEIN URINE TRACE mg/dL (NEGATIVE); SP GRAVITY URINE 1.014; TURBIDITY URINE CLEAR (CLEAR); UROBILINOGEN URINE NORMAL (NORMAL)
[2018-03-16 11:12] LABS: UR EPITHELIAL CELLS <10 /HPF (<10); URINE BACTERIA NEGATIVE /HPF; URINE RBC <10 /HPF (<10); URINE WBC <10 /HPF (<10)
[2018-03-16 11:14] LABS: BASO# 0.05 X1000 (0.0-0.2); BASO% 0.3 % (0.0-0.8); EOS# 4.37 X1000 (0.0-0.7); EOS% 23.9 % (0.0-10.0); HEMATOCRIT 45.7 % (37.0-47.0); HEMOGLOBIN 14.5 g/dL (12.0-16.0); IMM GRAN# 0.21 X1000 (0.0-0.04); IMM GRAN% 1.1 % (0.0-0.5); LYMPH# 4.07 X1000 (1.2-3.4); LYMPH% 22.2 % (20.5-51.1); MCH 29.4 PG (27-31); MCHC 31.7 g/dL (33-37); MCV 92.5 FL (81-99); MONO# 0.67 X1000 (0.11-0.59); MONO% 3.7 % (1.7-9.3); MPV 12.1 FL (7.4-10.4); NEUT# 8.94 X1000 (1.4-6.5); NEUT% 48.8 % (42.2-75.2); PLT 178 X1000 (130-400); RBC 4.94 XMIL (4.2-5.4); RDW 14.9 % (11.5-14.5); WBC 18.31 X1000 (4.8-10.8)
[2018-03-16 11:21] LABS: INR 1.05; PROTIME 14.6 Seconds (11.0-16.0); PTT 29.5 Seconds (22.3-41.8)
[2018-03-16 11:33] LABS: ALB/GLOB RATIO 1.2; ALBUMIN 3.8 g/dL (3.5-5.0); CALCIUM 9.1 mg/dL (8.8-10.2); CREATININE 1.9 mg/dL (0.5-0.9); POTASSIUM 4.5 mmol/L (3.5-5.1); TOTAL BILIRUBIN 0.54 mg/dL (0.20-1.00); TOTAL PROTEIN 6.9 g/dL (6.3-8.3)
--- NOTE | 2018-03-16 11:50 | Diag Imaging Result Doc PS360 ---
EXAM: CT HEAD W/O CONTRAST HISTORY: ams TECHNIQUE: CT head without contrast COMPARISON: 12/22/2016 FINDINGS: No parenchymal hemorrhage. No epidural or subdural hematoma. No subarachnoid hemorrhage. There is atrophy with chronic microvascular ischemic changes similar to the prior study. No mass identified on this noncontrasted exam. No hydrocephalus. No sinus opacification. IMPRESSION: 1.No hemorrhage 2.Atrophy with chronic microvascular ischemic changes. This exam was performed using automated exposure control, adjustment of mA or kV according to patient size, and/or use of iterative reconstruction technique. Electronically signed by Philipp Underwood 03/16/2018 11:48 AM
--- NOTE | 2018-03-16 11:51 | Diag Imaging Result Doc PS360 ---
EXAM: CHEST-PORTABLE HISTORY: ams TECHNIQUE: Portable chest COMPARISON: 06/05/2016 FINDINGS: The lungs are well expanded. The heart is not enlarged. There are no infiltrates. No effusion identified. IMPRESSION: Negative exam. Electronically signed by Philipp Underwood 03/16/2018 11:49 AM
[2018-03-16 12:20] LABS: UR AMPHETAMINES QUAL NONE DETECTED (NONE DETECT); UR BARBITUATES QUAL NONE DETECTED (NONE DETECT); UR BENZODIAZEPIN QUAL NONE DETECTED (NONE DETECT); UR CANNABINOIDS QUAL NONE DETECTED (NONE DETECT); UR COCAINE QUAL NONE DETECTED (NONE DETECT); UR METHADONE QUAL NONE DETECTED (NONE DETECT); UR OPIATES QUAL NONE DETECTED (NONE DETECT); UR OXYCODONE QUAL NONE DETECTED (NONE DETECT); UR PCP QUAL NONE DETECTED (NONE DETECT)
--- NOTE | 2018-03-16 12:38 | PROVIDER DOCUMENTATION ---
This chart was entered by Keshia Pascual Scribe, acting as scribe for Antonio Gonzalez MD. HPI-General Adult - General Chief Complaint: Altered Mental Status Stated Complaint: INCOHERENT? Time Seen by Provider: 03/16/18 10:49 Source: patient, family Allergies/Adverse Reactions: Patient Allergies Allergy/AdvReac Type Severity Reaction Status Date / Time Cephalosporins Allergy Mild HIVES Verified 03/03/18 11:32 Penicillins Allergy Mild HIVES Verified 03/03/18 11:32 Sulfa (Sulfonamide Allergy Mild HIVES Verified 03/03/18 11:32 Antibiotics) codeine Allergy NAUSEA/VOMI Verified 03/03/18 11:32 TING erythromycin base Allergy HIVES Verified 03/03/18 11:32 [Erythromycin Base] levofloxacin [From Levaquin] Allergy HIVES Verified 03/03/18 11:32 nitrofurantoin Allergy HIVES Verified 03/03/18 11:32 [From Macrobid] nitrofurantoin Allergy HIVES Verified 03/03/18 11:32 macrocrystalline * [From Macrobid] haloperidol [From Haldol] AdvReac Unknown Verified 03/03/18 11:32 haloperidol lactate * AdvReac Unknown Verified 03/03/18 11:32 [From Haldol] Home Medications: Home Medication List Medication Instructions Recorded Confirmed Last Taken Type Duloxetine [Cymbalta] 60 mg PO HS 10/08/13 03/03/18 03/02/18 19:00 History Metoprolol Succinate E.r. [Toprol 50 mg PO DAILY 02/24/14 03/03/18 03/03/18 08: 00 History Xl] ROSUVAstatin [Crestor] 20 mg PO QHS 02/24/14 03/03/18 03/02/18 19:00 History Losartan [Cozaar] 50 mg PO DAILY 04/26/15 03/03/18 03/03/18 08:00 History Pregabalin [Lyrica] 150 mg PO BID 04/26/15 03/03/18 03/03/18 08:00 History Pioglitazone HCl [Actos] 45 mg PO DAILY 06/01/16 03/03/18 03/03/18 08:00 History - History of Present Illness -Gen Adult Nature of Presenting Problems: 77 y/o female presents to ED with AMS with unknown onset. of pt is present and reports he found her on bathroom floor at 0600 wearing the same clothes as yesterday. Family states she was "incoherent" or "irrational" last night, but does not elaborate. Pt states she does not remember going to bed or falling. reports she was still awake when he went to bed. Pt states the last thing she remembers is making pudding last night. reports no known hx of seizures/CVA, but pt thinks she had seizures a long time ago. states she does have some short term memory problems. Pt reports she feels normal now, besides not being able to remember what happened last night. Pt is alert and oriented x2. Location of Pain/Injury: reports: none Pain Radiation: reports: no radiation Quality of Pain: reports: none Severity: reports: mild Onset/Duration: reports: last night Timing: reports: still present Context/Activities at Onset: reports: none Modifying Factors: improves with: nothing Associated Symptoms: reports: other (AMS/fall) Similar Symptoms Previously?: No Recently seen or treated by another doctor?: No Review of Systems - Adult - REVIEW OF SYSTEMS - ADULT Constitutional: reports: other (AMS/fall). denies: chills, fever Eyes: reports: no symptoms reported Ears, Nose, Mouth & Throat: reports: no symptoms reported Cardiovascular: denies: chest pain, palpitations Respiratory: denies: cough, shortness of breath Gastrointestinal: denies: abdominal pain, diarrhea, nausea, vomiting Genitourinary: reports: no symptoms reported Musculoskeletal: denies: back pain, joint pain Integumentary: reports: no symptoms reported Neurological: denies: dizziness/vertigo, seizure Psychiatric: reports: no symptoms reported Endocrine: reports: no symptoms reported Hematologic/Lymphatic: reports: no symptoms reported Allergic/Immunologic: reports: no symptoms reported All Other Systems: Reviewed and Negative Past History - Adult - PAST MEDICAL HISTORY-ADULT Review of Records: reports: Old Records Reviewed, Nursing Assessment Review, Medications Reviewed Major Childhood Illnesses: reports: denies history Cardiovascular: reports: CHF, HTN, other (dysrhythmis) Respiratory: reports: asthma, COPD Gastrointestinal: reports: GERD Genitourinary: reports: kidney disease Neurological: reports: CVA, dementia, Seizures/Epilepsy Psychiatric: reports: anxiety Endocrine/Immune: reports: anemia, Diabetes, hypoglycemia Other Conditions: reports: other (pleural effusion) - PRIOR SURGERIES/PROCEDURES Surgical/Procedure History: reports: appendectomy, hysterectomy, tonsillectomy - IMMUNIZATION STATUS Childhood Immunizations: UTD Flu Vaccine: UTD - FAMILY HISTORY Family History: reviewed, not pertinent - SOCIAL HISTORY Smoking: quit greater than 1 year Substance Use: none/never Alcohol Use Frequency: never Living Situation: family Physical Exam-General - PHYSICAL EXAM-ADULT Initial Vital Signs Reviewed: Yes - CONSTITUTIONAL General Appearance: appears well, alert, no apparent distress - EYES Eyes: PERRL/EOMI, pink conjunctivae, other (L exotropia) - HEAD, EARS, NOSE, MOUTH & THROAT HENMT: normocephalic/atraumatic, moist mucous membranes, normal ENT inspection - NECK Neck: non-tender, full range of motion - RESPIRATORY Respiratory: chest non-tender, lungs clear, normal breath sounds - CARDIOVASCULAR Cardiovascular: normal peripheral pulses, regular rate, rhythm - GASTROINTESTINAL (ABDOMEN) Abdominal Exam: normal bowel sounds, non tender, soft - MUSCULOSKELETAL Back Exam: normal inspection, no CVA tenderness Extremity: normal range of motion, non-tender, normal gait - SKIN Integumentary: normal color, warm/dry - NEUROLOGIC Neurologic: business process architect II-XII nml as tested (CN II-XII intact), grossly normal - PSYCHIATRIC Psych/Mental Status: normal mood/affect, normal thought content, normal thought process Progress - PLAN OF CARE/RESULTS Progress/Plan/Lab Results: Vital Signs - 8 hr 03/16/18 10:14 Temperature 97.7 F Pulse Rate 67 Respiratory Rate 18 Blood Pressure 160/82 O2 Sat by Pulse Oximetry 97 Laboratory Results - last 24 hr 03/16/18 03/16/18 03/16/18 10:20 10:40 10:40 WBC 18.31 H RBC 4.94 Hgb 14.5 Hct 45.7 MCV 92.5 MCH 29.4 MCHC 31.7 L RDW Std Deviation 14.9 H Plt Count 178 MPV 12.1 H Immature Gran % (Auto) 1.1 H Neut % (Auto) 48.8 Lymph % (Auto) 22.2 [place] % (Auto) 3.7 Eos % (Auto) 23.9 H Baso % (Auto) 0.3 Immature Gran # (Auto) 0.21 H Neut # (Auto) 8.94 H Lymph # (Auto) 4.07 H [place] # (Auto) 0.67 H Eos # (Auto) 4.37 H Baso # (Auto) 0.05 PT INR PTT (Actin FS) Sodium 142 Potassium 4.5 Chloride 101 Carbon Dioxide 22 L Anion Gap 19 BUN 41 H Creatinine 1.9 H Estimated GFR/1.73 m2 26 BUN/Creatinine Ratio 22 Glucose 150 H POC Glucose 118 H Calculated Osmolality 296 Calcium 9.1 Total Bilirubin 0.54 AST 26 ALT 22 Alkaline Phosphatase 155 H Creatine Kinase 31 Troponin T Total Protein 6.9 Albumin 3.8 Globulin 3.1 Albumin/Globulin Ratio 1.2 Urine Source Urine Color Urine Turbidity Urine pH Ur Specific [place] Urine Protein Ur Glucose (Stick) Ur Ketones (Stick) Urine Blood Urine Nitrite Urine Bilirubin Urobilinogen Dipstick Urine Leukocytes Urine WBC (Auto) Urine RBC (Auto) U Epithel Cells (Auto) Urine Bacteria (Auto) 03/16/18 03/16/18 03/16/18 10:40 10:40 10:40 WBC RBC Hgb Hct MCV MCH MCHC RDW Std Deviation Plt Count MPV Immature Gran % (Auto) Neut % (Auto) Lymph % (Auto) [place] % (Auto) Eos % (Auto) Baso % (Auto) Immature Gran # (Auto) Neut # (Auto) Lymph # (Auto) [place] # (Auto) Eos # (Auto) Baso # (Auto) PT 14.6 INR 1.05 PTT (Actin FS) 29.5 Sodium Potassium Chloride Carbon Dioxide Anion Gap BUN Creatinine Estimated GFR/1.73 m2 BUN/Creatinine Ratio Glucose POC Glucose Calculated Osmolality Calcium Total Bilirubin AST ALT Alkaline Phosphatase Creatine Kinase Troponin T < 0.010 Total Protein Albumin Globulin Albumin/Globulin Ratio Urine Source CATH Urine Color YELLOW Urine Turbidity CLEAR Urine pH 5.0 Ur Specific [place] 1.014 Urine Protein TRACE A Ur Glucose (Stick) NEGATIVE Ur Ketones (Stick) NEGATIVE Urine Blood NEGATIVE Urine Nitrite NEGATIVE Urine Bilirubin NEGATIVE Urobilinogen Dipstick NORMAL Urine Leukocytes NEGATIVE Urine WBC (Auto) <10 Urine RBC (Auto) <10 U Epithel Cells (Auto) <10 Urine Bacteria (Auto) NEGATIVE Orders Category Date Time Status Cardiac Monitoring DIRECTED Care 03/16/18 10:53 Active Cardiac Monitoring DIRECTED Care 03/16/18 10:54 Inactive Finger Stick Blood Sugar (ED) DIRECTED Care 03/16/18 10:53 Active Misc. NRSG Communication Order DIRECTED Care 03/16/18 10:54 Inactive Oxygen Therapy- ED Nursing DIRECTED Care 03/16/18 10:53 Active Saline Loc NOW Care 03/16/18 10:53 Active Saline Loc NOW Care 03/16/18 10:54 Inactive CHEST-PORTABLE [RAD] Stat Exams 03/16/18 10:[address] HEAD W/O CONTRAST [CT] Stat Exams 03/16/18 11:08 Completed CBC WITH ELECTRONIC DIFF [HEME] Stat Lab 03/16/18 10:40 Completed CK PROFILE [SP CHEM] Stat Lab 03/16/18 10:40 Completed COMPREHENSIVE METABOLIC PANEL [CHEM] Stat Lab 03/16/18 10:40 Completed MAGNESIUM [CHEM] Stat Lab 03/16/18 10:58 Received PROTIME WITH INR [COAG] Stat Lab 03/16/18 10:40 Completed PTT [COAG] Stat Lab 03/16/18 10:40 Completed TROPONIN T Stat Lab 03/16/18 10:40 Completed URINALYSIS [URINALYSIS] Stat Lab 03/16/18 10:40 Completed URINE DRUG SCREEN Stat Lab 03/16/18 10:30 Received Altered Mental Status Stat Oth 03/16/18 10:53 Ordered EKG [EKG] Stat Ther 03/16/18 10:53 Ordered Result Diagrams: 03/16/18 10:40 03/16/18 10:40 - EKG 1 Time of EKG reading by physician:: 10:50 EKG Read and Signed by:: Antonio Gonzalez EKG Interpretation (*Must complete 3 of following elements*): Abnormal Rate: 64 Rhythm: Sinus w/ 1st degree AV block [place]: left QRS: other (anterior infarct) AR Interval: normal ST Wave: normal - XRAY 1 XRAY Study: Chest Impression: Normal (FINDINGS: The lungs are well expanded. The heart is not enlarged. There are no infiltrates. No effusion identified. IMPRESSION: Negative exam. Electronically signed by Phliipp Underwood 03/16/2018 11:49 AM) - CT/MRI 1 CT Study: Head Impression: Normal (FINDINGS: No parenchymal hemorrhage. No epidural or subdural hematoma. No subarachnoid hemorrhage. There is atrophy with chronic microvascular ischemic changes similar to the prior study. No mass identified on this noncontrasted exam. No hydrocephalus. No sinus opacification. IMPRESSION: 1.No hemorrhage 2.Atrophy with chronic microvascular ischemic changes. This exam was performed using automated exposure control, adjustment of mA or kV according to patient size, and/or use of iterative reconstruction technique. Electronically signed by Philipp Underwood 03/16/2018 11:48 AM) - CONSULTS/PCP/HOSPITALIST Notification #1 *Consult/PCP/Hospitalist*: Dr. Chen Time Discussed: 12:00 Reason/Comments: Leukocytosis; AMS; renal function Consult Disposition: Admit Departure - Departure Date of Disposition Decision: 03/16/18 Time of Disposition Decision: 12:19 DIAGNOSIS: Renal failure Qualifiers: Renal failure chronicity: chronic Chronic kidney disease stage: unspecified stage Qualified Code(s): N18.9 - Chronic kidney disease, unspecified Altered mental status Qualifiers: Altered mental status type: disorientation Qualified Code(s): R41.0 - Disorientation, unspecified Leukocytosis Qualifiers: Leukocytosis type: unspecified Qualified Code(s): D72.829 - Elevated white blood cell count, unspecified Disposition: ADMITTED INPATIENT 09 Certified Medical Emergency: Emergent Condition: Fair Additional Freetext Instructions: ED Follow Up Instructions: You have been treated by a care provider in the Emergency Department. These instructions are being provided to you so you can have an understanding of how to care for yourself upon discharge. Upon discharge from the Emergency Department, you are responsible for making arrangements for follow-up care by a physician of your choice. Take all prescribed medications as directed. Return to the Emergency Department immediately for any new or worsening symptoms. You may call the Physician Referral phone number at [phone] to obtain a list of Physicians who are taking new patients. Referrals and Follow-Ups: Ori Dick Jr, MD [Primary Care Provider] - Discharge Education: Leukocytosis, Chronic Kidney Disease, Adult, [id number] - Critical Care Note This patient required my direct & personal management of CC.: No Attestation - Physician/ JOHN Attestation Patient care was provided by Advanced Practice Provider:: No The physician spent face to face time with patient:: Yes Advanced Practice Provider documentation review:: Supervising physician onsite and consulted in the evaluation and care of this patient. The physician did have a face to face encounter with the patient. This chart was documented by the indicated scribe, (Keshia Pascual, Damaris) and accurately reflects the services I performed and decisions made by me, Antonio Gonzalez MD, as attested by the provider's signature.
[2018-03-16] MEDS ORDERED: PROTONIX IV ONE (13:29)
[2018-03-16] MEDS ORDERED: POTASSIUM CHLORIDE 10 MEQ in NS 1,000 ML IV ONE (13:29)
[2018-03-16] MEDS ORDERED: SODIUM CHLORIDE 0.9% INJ ONE (13:29)
--- NOTE | 2018-03-16 20:30 | HISTORY AND PHYSICAL ---
CHIEF COMPLAINT: Altered mental status. HISTORY OF PRESENT ILLNESS: Ms. Gonzales 77-year-old female, patient of Dr. Dick was in her usual state of health yesterday. This morning her found her on the bathroom floor. The patient was incoherent. She was wearing the same clothes she was wearing yesterday. The patient did have some confusion last night. The patient states she does not remember going to bed or falling. Because of her altered mental status we do not know how long patient stayed on the floor confusion brought her to the emergency room. There was no documented seizure, no history of head injury. The patient denied any chest pain or palpitation. History part was limited. The patient does have problem with memory. In the emergency room patient found to have leukocytosis and abnormal renal function and we decided to admit patient for observation. According to her the patient did have UTI and some ear infection for which she was getting antibiotics. The patient denied any headache, no runny nose, stuffy nose. No sore throat. No typical chest pain, palpitation, orthopnea or PND. No unusual cough, expectoration or hemoptysis. Denied abdominal pain, nausea, vomiting. Denied any diarrhea, blood or mucus in the stool. The patient does have arthritic pain in the back, at times in the leg, no heat or cold intolerance. The patient does have polyuria, polydipsia. No focal weakness. The patient does have problem with recent memory. Again history part was limited. History gotten from ER record. ALLERGIES: Cephalosporin, penicillin, sulfa, codeine, erythromycin, Levaquin, nitrofurantoin, Haldol . CURRENT MEDICATION: Includes Cymbalta, Toprol-XL, Crestor, losartan, Lyrica, Actos. PAST MEDICAL HISTORY: Significant for hypertension, congestive heart failure, gastritis and reflux disease, CVA, dementia, questionable seizure, anxiety, NIDDM, anemia. PAST SURGICAL HISTORY: Patient had appendectomy, hysterectomy and tonsillectomy. PERSONAL HISTORY: , lives with the , quit smoking few years ago. Denied alcohol or substance abuse. Fairly independent in activities of daily living. PHYSICAL EXAMINATION: GENERAL: Elderly white female patient in mild distress. VITAL SIGNS: Blood pressure on admission 160/82, pulse 67, respiration 18, temperature 97.7 degrees. SKIN: Senile turgor. No rash or petechiae. HEENT: Head atraumatic, normocephalic. [place] conjunctivae. Anicteric sclerae. Extraocular muscle movement normal. Fundus cannot be penetrated. Good oral hygiene. No tonsillopharyngeal congestion or exudate. Ears and nose benign. NECK: Supple. No JVD, thyromegaly or lymphadenopathy. CHEST: Bilateral good air entry present, bibasilar crepitation. Occasional wheezing. CARDIOVASCULAR: S1 and S2 heard. No gallop or thrill. ABDOMEN: Soft. No distention. Bowel sounds present. No organomegaly or mass. EXTREMITIES: No cyanosis, clubbing or acute DVT. HELMET HAT BRIM CUTTER: Alert, awake, able to move all 4 limbs. Crepitation both the knee joints. Uncooperative for detailed neurologic examination. LAB DATA: Revealed WBC count of 18.31, hemoglobin 14.5, hematocrit 45.7, platelet count was 178,000. Electrolytes BUN 41, creatinine 1.9. Patient had CT scan done of the head done which revealed no hemorrhage, atrophy with chronic microvascular ischemic changes. Chest x-ray was benign. CONSIDERATION: Patient admitted with altered mental status, found to have leukocytosis, known case of non-insulin dependent diabetes mellitus, hypertension, hyperlipidemia, Alzheimer type dementia, chronic kidney disease. I reviewed her renal function in 2017, patient did have evidence of chronic kidney disease. Her urinalysis was benign. Urine drug screen was negative. PLAN: Admit patient for observation, telemetry monitoring, gentle hydration. Monitor her temperature, telemetry, repeat blood work in the morning. Overall plan discussed with patient's and daughter. They are in agreement. cc: Momo Cullen MD
[2018-03-16] MEDS: LYRICA PO SCH (21:11)
[2018-03-16] MEDS: CRESTOR PO SCH (21:11)
[2018-03-16] MEDS: CYMBALTA PO SCH (21:11)
[2018-03-17 07:50] LABS: BASO# 0.04 X1000 (0.0-0.2); BASO% 0.3 % (0.0-0.8); EOS# 1.92 X1000 (0.0-0.7); EOS% 12.2 % (0.0-10.0); HEMATOCRIT 48.1 % (37.0-47.0); IMM GRAN% 0.6 % (0.0-0.5); LYMPH# 2.48 X1000 (1.2-3.4); LYMPH% 15.8 % (20.5-51.1); MCH 29.2 PG (27-31); MCHC 31.2 g/dL (33-37); MCV 93.8 FL (81-99); MONO# 0.66 X1000 (0.11-0.59); MONO% 4.2 % (1.7-9.3); MPV 12.3 FL (7.4-10.4); NEUT# 10.49 X1000 (1.4-6.5); NEUT% 66.9 % (42.2-75.2); PLT 109 X1000 (130-400); RBC 5.13 XMIL (4.2-5.4); RDW 15.3 % (11.5-14.5); WBC 15.69 X1000 (4.8-10.8)
[2018-03-17 08:20] LABS: ALB/GLOB RATIO 0.8; ALBUMIN 3.1 g/dL (3.5-5.0); CALCIUM 8.2 mg/dL (8.8-10.2); CREATININE 1.6 mg/dL (0.5-0.9); MAGNESIUM 2.3 mg/dL (1.5-2.7); POTASSIUM 4.7 mmol/L (3.5-5.1); TOTAL BILIRUBIN 0.74 mg/dL (0.20-1.00); TOTAL PROTEIN 6.9 g/dL (6.3-8.3)
[2018-03-17] MEDS: TOPROL XL PO SCH (09:40)
[2018-03-17] MEDS: LYRICA PO SCH ×2 (09:40→21:52)
[2018-03-17] MEDS: LOVENOX SUBQ SCH (09:41)
[2018-03-17] MEDS: COZAAR PO SCH (09:41)
[2018-03-17] MEDS ORDERED: NS 1,000 ML IV SCH (10:15)
--- NOTE | 2018-03-17 10:26 | PROGRESS NOTE ---
DATE: 03/17/2018 SUBJECTIVE: The patient says she really does not remember what happened to her. She seems oriented x3 this morning. She knows that she is at [facility]. She does not remember getting up and going to the bathroom. Does not remember whether she passed out and hit the floor. Does not remember whether her had to awaken her or not when he found her. Apparently, when he found her she was confused and incoherent. She was wearing the same clothes she had worn the day before. She had some confusion the night before. [place] [id number]. CK enzyme was normal, but we will chart check for rhabdomyolysis because we do not know how long she was down. We have to assume at this point that she probably had some syncope. When she came in the hospital, her blood sugar was normal. She is a diabetic. OBJECTIVE: Vital Signs: Blood pressure 132/61, respirations 15, pulse 72, and temperature 97.9 degrees Fahrenheit. HEENT: She is normocephalic. EOMS intact. PERRLA. Throat clear. Lungs: Clear to auscultation and percussion without rhonchi, rales, or wheezes. Heart: Regular rate and rhythm without murmurs, gallops, or friction rubs. Abdomen: Soft. Active bowel sounds. No organomegaly or tenderness. Neurological: Intact grossly. EKG is still not on the chart. ASSESSMENT: 1. Syncope. 2. Altered mental status. 3. Diabetes mellitus. 4. History of dementia. 5. Rule out rhabdomyolysis, as she was down for while. PLAN: We will get troponin's and CK's. We will get a urine myoglobin. We will do an EEG and an echocardiogram. We will get neurology to consult in the morning in, and will get possibly an MRI scan in the next day or 2. It should be noted the patient has had renal failure on metformin in the past, and her creatinine was 1.9 when she came in. It is 1.6 now, and we will be very careful with IV contrast. cc: MD Momo Gross Jr, MD
[2018-03-17] MEDS: HUMULIN R SUBQ SCH ×3 (11:47→21:52)
[2018-03-17] MEDS: NS 1,000 ML IV SCH (18:24)
[2018-03-17] MEDS: CYMBALTA PO SCH (21:52)
[2018-03-17] MEDS: CRESTOR PO SCH (21:52)
[2018-03-18] MEDS: HUMULIN R SUBQ SCH ×3 (06:02→17:02)
[2018-03-18 06:06] LABS: CREATININE 1.3 mg/dL (0.5-0.9)
--- NOTE | 2018-03-18 08:06 | EKG Report ---
Test Performed on : 03/16/2018 10:21:17 AM Test Reason : ams Blood Pressure : / mmHG Vent. Rate : 064 BPM Atrial Rate : 064 BPM P-R Int : 238 ms QRS Dur : 102 ms QT Int : 470 ms P-R-T Axes : 049 -54 -16 degrees QTc Int : 484 ms Sinus rhythm. with 1st degree AV block. Left axis deviation Anterior infarct (cited on or before 23-NOV-2009) Abnormal ECG When compared with ECG of 04-NOV-2013 17:11, Questionable change in initial forces of Anterior leads T wave inversion no longer evident in Lateral leads QT has shortened Unconfirmed Result
--- NOTE | 2018-03-18 08:37 | ECHO REPORT ---
ORDER DATE: 03/17/2018 INTERPRETING PHYSICIAN: Fili Bravo MD. INDICATION: A 77-year-old female with syncope. Former smoker, CHF, hypertension. M-MODE MEASUREMENTS: Left ventricle end diastole: 4.1 cm. Left ventricle end systole: 3.0 cm. Posterior wall: 1.2 cm. Interventricular septum: 1.2 cm. Left atrium: 4.7 cm. Aortic root: 2.9 cm. SUMMARY OF 2-DIMENSIONAL IMAGIN. The left ventricular function is normal. Ejection fraction is estimated at 55% to 60%. No wall motion abnormality noted. 2. The aortic valve appears to be grossly within normal range. 3. The mitral valve also appears to be grossly within normal range. Color flow mapping of the mitral valve indicates a mild degree of regurgitation. Pulsed wave Doppler of mitral inflow showed reversal of the E and the A ratio. The tissue Doppler of septal and lateral mitral annulus averages 6 cm. There is no diastolic dysfunction. 4. The left atrium appears to be mildly enlarged. 5. The tricuspid valve shows a trace of regurgitation. Pulmonary pressure is probably normal. 6. The pulmonic valve appears to be grossly normal. 7. There is no pericardial effusion, masses, nor thrombus. SUMMARY: In summary, this study shows: 1. Overall, well-preserved left ventricular systolic function, ejection fraction 55% to 60%. 2. No definite diastolic dysfunction. 3. Pulmonary pressure probably normal. 4. No evidence of any significant valvular abnormality. Clinical correlation recommended. cc: MD Ori Montanez Jr, MD
[2018-03-18 09:01] LABS: BASO# 0.02 X1000 (0.0-0.2); BASO% 0.2 % (0.0-0.8); EOS# 0.74 X1000 (0.0-0.7); EOS% 5.8 % (0.0-10.0); HEMATOCRIT 41.3 % (37.0-47.0); HEMOGLOBIN 12.8 g/dL (12.0-16.0); IMM GRAN# 0.05 X1000 (0.0-0.04); IMM GRAN% 0.4 % (0.0-0.5); LYMPH# 2.13 X1000 (1.2-3.4); LYMPH% 16.8 % (20.5-51.1); MCH 29.4 PG (27-31); MCV 94.9 FL (81-99); MONO# 0.74 X1000 (0.11-0.59); MONO% 5.8 % (1.7-9.3); MPV 11.8 FL (7.4-10.4); NEUT# 8.99 X1000 (1.4-6.5); PLT 108 X1000 (130-400); RBC 4.35 XMIL (4.2-5.4); RDW 15.4 % (11.5-14.5); WBC 12.67 X1000 (4.8-10.8)
--- NOTE | 2018-03-18 09:06 | PROGRESS NOTE ---
DATE: 03/18/2018 SUBJECTIVE: The patient seems to be feeling better. She is alert. She is oriented x3. OBJECTIVE: Vital Signs: Blood pressure 131/61, respirations 18, pulse 69 and regular, temp 97.9 degrees. HEENT: She is normocephalic. Extraocular movements are intact. PERRLA. Nose and throat clear. Lungs: Clear to auscultation and percussion without rhonchi, rales, or wheezes. Heart: Regular rate and rhythm without murmurs, gallops, or friction rubs. Abdomen: Soft. Active bowel sounds. No organomegaly or tenderness. Neurological: Cranial nerves 2-12 intact grossly. Sensory and motor intact. ASSESSMENT: 1. Probable syncopal episode. 2. Altered mental status. 3. Adult onset diabetes mellitus. 4. Dementia. PLAN: Will continue with further workup. Echocardiogram was essentially normal. Cardiac enzymes were all negative. EEGs ordered. MRI scan of the head is ordered. Consultation with Neurology is ordered. Continue care. We will also get physical therapy to start working with her doctor. cc: Ori Dick Jr, MD
[2018-03-18] MEDS: LYRICA PO SCH ×2 (09:39→20:39)
[2018-03-18] MEDS: COZAAR PO SCH (09:39)
[2018-03-18] MEDS: TOPROL XL PO SCH (09:39)
[2018-03-18] MEDS: LOVENOX SUBQ SCH (09:40)
[2018-03-18] MEDS: NS 1,000 ML IV SCH ×2 (09:41→20:40)
--- NOTE | 2018-03-18 11:44 | CONSULTATION ---
DATE OF CONSULTATION: 03/18/2018 REASON FOR CONSULT: Syncope and altered mental status. HISTORY OF PRESENT ILLNESS: This is a 77-year-old right-handed female with reported dementia who was admitted 03/16/2018. History is from chart review, as the patient is unable to provide a history and there is no family currently available. Apparently, she was in her usual state of health the day prior. She may have been confused during the evening prior. However, I am not certain about that, but she was found by her the following morning on the floor of the bathroom and she was wearing the same clothes that she was wearing the day before. She was apparently confused, so the brought her to the emergency department. There was no history of witnessed seizure, no witnessed syncopal event, no witnessed head injury. The patient cannot provide any history whatsoever. She apparently denied chest pain, palpitations. She was found to have leukocytosis and acute kidney injury and was admitted for observation. The did report recent UTI and ear infection and stated the patient was getting antibiotics for this. PAST MEDICAL HISTORY: Includes: 1. Hypertension, 2. Possible heart failure. 3. Gastritis. 4. Reflux disease. 5. Possible stroke, though patient denied this. 6. Reported dementia. 7. Anxiety. 8. Diabetes. 9. Anemia. 10. Appendectomy. 11. Hysterectomy. 12. Tonsillectomy. FAMILY HISTORY: The patient states father had a stroke. No seizures. SOCIAL HISTORY: She is and lives with her . She quit smoking a few years ago. Denies alcohol and illicits. She says she does not drive but is otherwise fairly independent. ALLERGIES: Listed to cephalosporin, penicillin, sulfa, codeine, erythromycin, Levaquin, nitrofurantoin, Haldol. MEDICATIONS AT HOME: 1. Cymbalta. 2. Toprol XL. 3. Crestor. 4. Losartan. 5. Lyrica. 6. Actos. REVIEW OF SYSTEMS: The patient states she has neuropathy but denies other aspects of review of systems. This was twelve-point review of systems. PHYSICAL EXAMINATION: Vital signs: She has been afebrile this hospitalization. Blood pressure on arrival 160/82, current 131/61, pulse 60s to 70s, respirations 18, 99% on 2 L nasal cannula. Neurologic: Ms. Gonzales is supine in bed in no acute distress. She is awake, alert, attentive. She follows simple commands consistently. She has some difficulty with complex commands but does eventually complete a task after she is finally able to register the command. She discusses some remote events. She has a very difficult time with recent events. No language dysfunction detected on bedside testing. No dysarthria. Left-right and digit distinction preserved. Pupils are equal, round, and briskly reactive to bright light. Gaze conjugate, forward. Extraocular motions are full. Visual manriquez intact to direct confrontational testing. Face symmetric with equal activation. Facial sensation reported intact. Tongue is midline. Palate elevates symmetrically. Shoulder shrug is full. Motor exam: No drift. Tone is symmetric and normal in the limbs. Strength is preserved, 5/5 in the upper and lower extremities as tested. Sensory was reported symmetric in the arms and legs to light touch. Reflexes are diminished , symmetric. No clonus. Plantar response is downgoing. I did not test her gait. Rapid alternating movements and [id number] were intact. DIAGNOSTICS: Head CT noncontrast personally reviewed shows atrophy and chronic microvascular ischemic changes but no acute findings. Echocardiogram showed an ejection fraction of 55% to 60%, no definite diastolic dysfunction, pulmonary pressure normal, no evidence of significant valvular abnormality and no evidence of visualized thrombus or mass. White count 18 on admit, now 12.67. Sodium of 146, BUN 41, creatinine 1.9 on admission--now 20 and 1.3. Blood sugars 120s to 150. Calcium 8.0. AST and ALT normal. Urinalysis showed trace protein. Toxicology was negative. ASSESSMENT AND PLAN: 1. Acute confusional state. Uncertain etiology. Possible syncope. Cannot r/o unwitnessed seizure, which can occur with dementia, but I did not come across other associated features such as tongue biting or incontinence to suggest it. Seems to be improved or resolved but uncertain about her baseline. Exam is nonfocal. 2. Dementia. Uncertain baseline. I do not see evidence of superimposed encephalopathy at this time. 3. Acute kidney injury. Likely contributing. 4. Leukocytosis, reportedly taking antibiotics at home for urinary tract infection or an ear infection. Has been afebrile. PLAN: EEG and MRI have been ordered, and I will review those after they have been completed. She may be at her baseline but I am not certain about that. I do not see any ongoing features of encephalopathy on my exam today, so perhaps that has improved if it was there previously. Agree with correcting her acute kidney injury as you are doing. Thank you for the consultation. cc: MD Ori Baker Jr, MD MTDD
--- NOTE | 2018-03-18 15:18 | Diag Imaging Result Doc PS360 ---
EXAM: MRI BRAIN W/O CONTRAST 03/18/2018 HISTORY: syncope and ams TECHNIQUE: T1 sagittal, axial, axial T2, FLAIR, DWI and coronal gradient echo. COMMENT: The current examination is compared with the previous examination of 11/18/2013. There are numerous punctate foci of increased T2-weighted signal intensity in the subcortical white matter of both parietal frontal lobes. There is no evidence of bleed, mass effect, or abnormal extra-axial fluid collection. There is no evidence of restricted diffusion. Compared to the previous examination of 11/18/2013, there has been no significant change. IMPRESSION: Chronic ischemic microvascular changes unchanged since 05/18/2013. Electronically signed by Javi Banuelos 03/18/2018 3:16 PM
--- NOTE | 2018-03-18 16:49 | EEG REPORT ---
DATE: 03/17/2018 REFERRING PHYSICIAN: Dr. Dick. [facility]: Carole Dick. BACKGROUND INFORMATION AND TECHNIQUE: This is a digitally recorded portable routine EEG with video. HISTORY OF PRESENT ILLNESS: This is a 77-year-old female patient with dementia admitted after being found on the bathroom floor and confused. EEG was ordered to detect evidence of seizures. MEDICATIONS: Include Cymbalta and Lyrica. EEG FINDINGS: A posterior dominant alpha rhythm is notably absent. At maximal alertness, the background consists of mixed alpha, beta and theta range frequencies. Intermittent, diffuse triphasic waves are seen during the study. No definite persistent focal slowing. No definite epileptiform discharges. No seizures. Hyperventilation was not performed. Photic stimulation did not alter the record. The patient becomes drowsy, but stage II sleep is not seen. EKG demonstrates regular intervals. IMPRESSION AND CLINICAL CORRELATION: Abnormal routine EEG due to mild generalized slowing with triphasic waves indicative of a mild, nonspecific encephalopathy. No epileptiform discharges and no seizures seen on the current study. This does not rule out an underlying seizure disorder. Triphasic waves are a nonspecific finding seen with encephalopathies, most often in the setting of hepatic or renal derangements. Generalized slowing is a nonspecific finding that can be seen in processes that diffusely affect the cerebrum including toxic, metabolic , pharmacologic, posthypoxic and infectious etiologies, amongst others. cc: MD Ori Baker Jr, MD MTDD
[2018-03-18] MEDS: CYMBALTA PO SCH (20:39)
[2018-03-18] MEDS: CRESTOR PO SCH (20:39)
[2018-03-19] MEDS: HUMULIN R SUBQ SCH ×4 (06:15→22:13)
[2018-03-19 07:25] LABS: BASO# 0.02 X1000 (0.0-0.2); BASO% 0.2 % (0.0-0.8); EOS# 1.38 X1000 (0.0-0.7); EOS% 11.4 % (0.0-10.0); HEMATOCRIT 39.6 % (37.0-47.0); HEMOGLOBIN 12.2 g/dL (12.0-16.0); IMM GRAN# 0.03 X1000 (0.0-0.04); IMM GRAN% 0.2 % (0.0-0.5); LYMPH# 2.07 X1000 (1.2-3.4); LYMPH% 17.1 % (20.5-51.1); MCH 29.4 PG (27-31); MCHC 30.8 g/dL (33-37); MCV 95.4 FL (81-99); MONO# 0.78 X1000 (0.11-0.59); MONO% 6.4 % (1.7-9.3); MPV 12.1 FL (7.4-10.4); NEUT# 7.85 X1000 (1.4-6.5); NEUT% 64.7 % (42.2-75.2); PLT 105 X1000 (130-400); RBC 4.15 XMIL (4.2-5.4); RDW 15.3 % (11.5-14.5); WBC 12.13 X1000 (4.8-10.8)
[2018-03-19 07:33] LABS: CALCIUM 8.1 mg/dL (8.8-10.2); CREATININE 1.2 mg/dL (0.5-0.9); POTASSIUM 3.8 mmol/L (3.5-5.1)
[2018-03-19] MEDS: NS 1,000 ML IV SCH ×2 (08:01→22:13)
[2018-03-19] MEDS: LYRICA PO SCH ×2 (08:02→22:10)
[2018-03-19] MEDS: COZAAR PO SCH (08:02)
[2018-03-19] MEDS: LOVENOX SUBQ SCH (08:02)
[2018-03-19] MEDS: TOPROL XL PO SCH (08:02)
--- NOTE | 2018-03-19 12:01 | PROGRESS NOTE ---
DATE: 03/19/2018 SUBJECTIVE: The patient feels better. She is sitting up in a chair. She worked some with Physical Therapy and seems to be regaining strength. Her mentation seems back to her baseline. Physical Therapy thought that she could still benefit from some more physical therapy with her walking. OBJECTIVE: Vital Signs: Blood pressure 132/59, respirations 18, pulse 73, temperature 98.6 degrees Fahrenheit. HEENT: She is normocephalic. EOMS intact. PERRLA. Throat clear. Lungs: Clear to auscultation and percussion without rhonchi, rales, or wheezes. Heart: Regular rate and rhythm without murmurs, gallops, friction rubs. Abdomen: Soft. Active bowel sounds. No organomegaly or tenderness. Neurological: Intact grossly at this time. LABORATORY: White count is 12,130, hemoglobin 12.2. Urinalysis was essentially normal. A culture was done anyway and is growing a gram negative cocci it says requiring further intubation with the Massey count of only 10,000-20,000. I am not sure that this is a significant infection. She is having no symptoms with it at all. Certainly a urinary tract infection could cause altered mental status, but she has not been treated for this and she is getting better anyway. DIAGNOSTIC DATA: Echocardiogram was essentially normal. EEG was unremarkable. RADIOLOGY: MRI scan showed no acute findings. ASSESSMENT AND PLAN: So far we have not found a cause for her probable syncope and her altered mental status. However, she seems to be recovering. We could consider it a TIA. She shows no focal signs, and it may have lasted longer than a TIA generally would since she was confused we presume for several hours, but at this time. Seems to be doing better. We will see how she does today. If we find nothing, we may send her home tomorrow and work this up as an outpatient, but we will see how she does. Appreciate help from all consultants. cc: Ori Dick Jr, MD
[2018-03-19] MEDS: CYMBALTA PO SCH (22:10)
[2018-03-19] MEDS: CRESTOR PO SCH (22:10)
--- NOTE | 2018-03-20 06:36 | PROGRESS NOTE ---
DATE: 03/19/2018 SUBJECTIVE: No major overnight events. The patient has no complaints. OBJECTIVE: Vital Signs: Remains afebrile. Blood pressure 108/58, pulse 60s to 70s. Neurologic: Ms. Gonzales is sitting up in a chair. She is awake, alert, attentive. A bit brighter today compared to yesterday. She has no complaints. She follows simple commands but has difficulty again with complex commands. Pupils are equal. Gaze is conjugate and forward. Ocular movements are full. Face symmetric with equal activation. Tongue is midline. She is noted to be spontaneously moving her extremities without obvious focal deficits. DIAGNOSTICS: MRI of the brain noncontrast showing no acute findings. There are chronic ischemic microvascular changes that are unchanged compared to 2014. Routine EEG was personally reviewed. There was some mild generalized slowing and triphasic waves indicative of a mild nonspecific encephalopathy. Triphasic waves are typically seen in the setting of hepatic or renal derangement. No epileptiform discharges and no seizures. White count 12. BUN 18, creatinine 1.2. ASSESSMENT AND PLAN: Remains acute confusional state of uncertain etiology. Symptoms seem to be resolved at this point. Cannot rule out syncope, cannot rule out the possibility of an unwitnessed seizure though again I did not hear of other associated features to suggest that. She does seem to have an apparent major neurocognitive disorder or dementia. I would continue treating her as you are doing. Continue following her clinically. Negative EEG and MRI are reassuring as is her improvement clinically. cc: MD Ori Baker Jr, MD MTDD
[2018-03-20 06:51] LABS: BASO# 0.02 X1000 (0.0-0.2); BASO% 0.2 % (0.0-0.8); EOS# 1.36 X1000 (0.0-0.7); EOS% 12.8 % (0.0-10.0); HEMATOCRIT 36.7 % (37.0-47.0); HEMOGLOBIN 11.4 g/dL (12.0-16.0); IMM GRAN# 0.03 X1000 (0.0-0.04); IMM GRAN% 0.3 % (0.0-0.5); LYMPH# 1.81 X1000 (1.2-3.4); MCH 29.5 PG (27-31); MCHC 31.1 g/dL (33-37); MCV 95.1 FL (81-99); MONO# 0.59 X1000 (0.11-0.59); MONO% 5.6 % (1.7-9.3); MPV 12.5 FL (7.4-10.4); NEUT# 6.81 X1000 (1.4-6.5); NEUT% 64.1 % (42.2-75.2); PLT 109 X1000 (130-400); RBC 3.86 XMIL (4.2-5.4); WBC 10.62 X1000 (4.8-10.8)
[2018-03-20] MEDS: HUMULIN R SUBQ SCH ×4 (07:01→23:31)
[2018-03-20 07:09] LABS: CALCIUM 8.3 mg/dL (8.8-10.2); CREATININE 1.3 mg/dL (0.5-0.9); POTASSIUM 3.8 mmol/L (3.5-5.1)
--- NOTE | 2018-03-20 09:11 | PROGRESS NOTE ---
DATE: 03/20/2018 SUBJECTIVE: The patient is alert and awake. She could not tell me what day it was. She could tell me the year, but she could not tell me the month. She could not tell me my name today. She could tell me after a long thought that it was [facility] that she was, and the other day she was quicker telling me this. She says she feels fine, but her tells me today it was present and that she seems weak to him. So far, we have not been able to find a cause for her syncope or her change in mental status. She probably does need to be on dementia medications, and she apparently had been at one time but she was seeing Dr. Caceres, but they missed the appointment and never went back on the medication. The only other thing that we have found is though her urinalysis was normal, culture was done anyway, and she did grow Enterococcus faecalis, group D, that was only 10,000 to 20,000 colonies; but, they did grow that out, and she had a recent urinary tract infection we treated at the office with Macrobid, and then she had an ear infection that we treated with doxycycline right before she came in the hospital. I think I will go ahead and place her back on Macrobid for the Enterococcus, and we will repeat a urinalysis just in case this is a contributor. She has no symptoms with this, otherwise, and the urine was normal when she came in, but it could have changed. OBJECTIVE: Vital signs show a blood pressure of 133/48, respirations 18, pulse 66, temperature 97.6 degrees Fahrenheit. HEENT: She is normocephalic. EOMS intact. PERRLA. Throat clear. Lungs are clear to auscultation and percussion without rhonchi, rales, or wheezes. Heart: Regular rate and rhythm without murmurs, gallops, or friction rubs. Abdomen is soft with active bowel sounds. No organomegaly or tenderness. Neurological exam intact except that memory is somewhat poor. I am not sure she is not back close to baseline though. She has had some dementia for some time. We will go ahead and treat possible UTI. ASSESSMENT: 1. Probable syncopal episode. 2. Altered mental status. 3. Diabetes mellitus. 4. Possible urinary tract infection. PLAN: We will start Macrobid and repeat a urinalysis. Will watch at least for another day and see if she shows improvement. cc: Ori Dick Jr, MD
[2018-03-20] MEDS: NS 1,000 ML IV SCH ×2 (09:12→23:29)
[2018-03-20] MEDS: LYRICA PO SCH ×2 (09:13→23:27)
[2018-03-20] MEDS: TOPROL XL PO SCH (09:13)
[2018-03-20] MEDS: COZAAR PO SCH (09:13)
[2018-03-20] MEDS: LOVENOX SUBQ SCH (09:13)
[2018-03-20] MEDS: MACROBID PO SCH ×2 (09:15→23:27)
[2018-03-20 11:39] LABS: URINE SOURCE CATH
[2018-03-20 11:48] LABS: BILIRUBIN URINE NEGATIVE (NEGATIVE); BLOOD URINE NEGATIVE (NEGATIVE); COLOR YELLOW; GLUCOSE URINE NEGATIVE (NEGATIVE); KETONE URINE NEGATIVE (NEGATIVE); LEUKOCYTES URINE MODERATE (NEGATIVE); NITRITE URINE NEGATIVE (NEGATIVE); PROTEIN URINE 30 mg/dL (NEGATIVE); TURBIDITY URINE CLEAR (CLEAR); UROBILINOGEN URINE NORMAL (NORMAL)
[2018-03-20 11:50] LABS: UR EPITHELIAL CELLS <10 /HPF (<10); URINE BACTERIA NEGATIVE /HPF; URINE RBC <10 /HPF (<10); URINE WBC 20-40 /HPF (<10)
[2018-03-20] MEDS: CYMBALTA PO SCH (23:26)
[2018-03-20] MEDS: CRESTOR PO SCH (23:27)
[2018-03-21] MEDS: HUMULIN R SUBQ SCH ×4 (07:38→20:53)
--- NOTE | 2018-03-21 09:09 | PROGRESS NOTE ---
DATE: 03/21/2018 SUBJECTIVE: The patient says she just does not feel good. She is not more specific than that. Her thinks she is a little bit more confused, but she could tell me who the President was. She could not tell me what day it was. She knew who I was, and could tell me that she knew who her was. So I think she is back to her baseline or close to it. Interestingly, I started her on Macrobid yesterday even though her urinalysis has been normal. She had grown Enterococcus faecalis in her urine, a small colony counts, and I repeated her urinalysis and it showed 20 to 40 WBCs, that it had not shown before. So it is possible that she had a urinary tract infection all long, and that it just was not showing up. She was started on Macrobid yesterday, and it was sensitive to that. There is another culture cooking, it looks like gram-positive cocci. Her creatinine has come down to 1.9 to 1.3. This is lab work from yesterday. No lab work today so far. OBJECTIVE: Vital Signs: Temp of 98.1 degrees Fahrenheit. Three days ago, she had a 99.1 temp. Blood pressure is 137/62. Respirations 18. Pulse 67. HEENT: She is normocephalic. Lungs: Clear to auscultation and percussion without rhonchi, rales, or wheezes. Heart: Regular rate and rhythm without murmurs, gallops, or friction rubs. Abdomen: Soft. Active bowel sounds. No organomegaly or tenderness. Neurological: Intact grossly. She does act a little confused. DISCUSSION: I do think she has some baseline dementia. We will probably start her on Aricept and Namenda when she leaves the hospital, at this time. Because concerned with her, I will continue her on her Macrobid and watch her mentation, possibly home tomorrow. We will see how she does. If her altered mental status gets worse, we may have to hold her longer. ASSESSMENT: 1. Altered mental status. 2. Possible syncope. 3. Urinary tract infection. 4. Adult onset diabetes mellitus. 5. Dementia. PLAN: Continue care. cc: Ori Dick Jr, MD
[2018-03-21] MEDS: MACROBID PO SCH ×2 (10:03→20:47)
[2018-03-21] MEDS: LYRICA PO SCH ×2 (10:03→20:47)
[2018-03-21] MEDS: TOPROL XL PO SCH (10:04)
[2018-03-21] MEDS: LOVENOX SUBQ SCH (10:04)
[2018-03-21] MEDS: COZAAR PO SCH (12:22)
[2018-03-21] MEDS: NS 1,000 ML IV SCH ×2 (13:18→20:48)
--- NOTE | 2018-03-21 13:26 | PROGRESS NOTE ---
DATE: 03/21/2018 Ms. Gonzales had an altered mental state in the setting of baseline dementia. She has improved since admission. Dr. Barron saw her earlier this week for Neurology evaluation. I have seen Ms. Gonzales in the past, last seen in the office in 2013 with history of dementia, managed with donepezil with some clinical improvement and stable course. Not clear now why donepezil was stopped. I spoke with by phone and he believes stopping donepezil was inadvertent. He does not recall her having any problems tolerating donepezil. I agree with Dr. Dick' plans for resumption of donepezil and memantine when practical. I will be glad to follow her again in the office if requested. Thanks for asking Neurology to see Ms. Gonzales. cc: MD Ori Combs III, Jr, MD MTDD
[2018-03-21] MEDS: CRESTOR PO SCH (20:47)
[2018-03-21] MEDS: CYMBALTA PO SCH (20:48)
[2018-03-22] MEDS: NS 1,000 ML IV SCH ×2 (03:26→18:25)
[2018-03-22] MEDS: HUMULIN R SUBQ SCH ×4 (06:45→22:00)
[2018-03-22 07:35] LABS: BASO# 0.04 X1000 (0.0-0.2); BASO% 0.4 % (0.0-0.8); EOS# 2.66 X1000 (0.0-0.7); EOS% 27.9 % (0.0-10.0); HEMATOCRIT 35.1 % (37.0-47.0); HEMOGLOBIN 10.8 g/dL (12.0-16.0); LYMPH# 1.14 X1000 (1.2-3.4); MCH 29.3 PG (27-31); MCHC 30.8 g/dL (33-37); MCV 95.1 FL (81-99); MONO# 0.55 X1000 (0.11-0.59); MONO% 5.8 % (1.7-9.3); MPV 11.9 FL (7.4-10.4); NEUT# 5.13 X1000 (1.4-6.5); NEUT% 53.9 % (42.2-75.2); PLT 146 X1000 (130-400); RBC 3.69 XMIL (4.2-5.4); RDW 14.9 % (11.5-14.5); WBC 9.52 X1000 (4.8-10.8)
[2018-03-22 07:47] LABS: CALCIUM 8.2 mg/dL (8.8-10.2); CREATININE 1.2 mg/dL (0.5-0.9); POTASSIUM 4.2 mmol/L (3.5-5.1)
[2018-03-22 07:48] LABS: EOS 36 % (1-10); LYMPHS 10 % (21-51); MONO 2 % (1-9); SEGS 50 % (42-75)
[2018-03-22 08:13] LABS: URINE SOURCE CATH
[2018-03-22 08:16] LABS: BILIRUBIN URINE NEGATIVE (NEGATIVE); COLOR YELLOW; GLUCOSE URINE NEGATIVE (NEGATIVE); TURBIDITY URINE TURBID (CLEAR)
[2018-03-22 08:17] LABS: BLOOD URINE SMALL (NEGATIVE); KETONE URINE NEGATIVE (NEGATIVE); LEUKOCYTES URINE LARGE (NEGATIVE); NITRITE URINE NEGATIVE (NEGATIVE); PH URINE 5.5; PROTEIN URINE 30 mg/dL (NEGATIVE); SP GRAVITY URINE 1.007; UROBILINOGEN URINE NORMAL (NORMAL)
[2018-03-22 08:22] LABS: UR EPITHELIAL CELLS <10 /HPF (<10); URINE BACTERIA NEGATIVE /HPF; URINE RBC 20-40 /HPF (<10); URINE WBC TNTC /HPF (<10)
[2018-03-22 08:24] LABS: URINE YEAST PRESENT
[2018-03-22] MEDS ORDERED: VANCOMYCIN IV PER PHARMACY MISC SCH (08:45)
[2018-03-22] MEDS: MACROBID PO SCH ×2 (09:12→22:00)
[2018-03-22] MEDS: COZAAR PO SCH (09:13)
[2018-03-22] MEDS: LYRICA PO SCH ×2 (09:13→21:59)
[2018-03-22] MEDS: LOVENOX SUBQ SCH (09:14)
[2018-03-22] MEDS: TOPROL XL PO SCH (09:14)
--- NOTE | 2018-03-22 09:20 | PROGRESS NOTE ---
DATE: 03/22/2018 SUBJECTIVE: The patient says she is feeling worse. She says she has felt more confused. She has felt extremely tired. OBJECTIVE: Vital Signs: Blood pressure 129/48, respirations 16, pulse 66, and temperature 98.3 degrees. HEENT: She is normocephalic and atraumatic. PERRLA. Throat clear. Lungs: Clear to auscultation and percussion without rhonchi, rales, or wheezes. Heart: Regular rate and rhythm without murmurs, gallops, or friction rubs. Abdomen: Soft. Active bowel sounds. No organomegaly or tenderness, not particularly tender over the urinary bladder. Neurological: Patient is still somewhat confused. She says she feels very tired. She just does not feel well at all. LABORATORY: White count of 9520. Hemoglobin 10.8 and hematocrit 35.1. Electrolytes are essentially normal. Urinalysis is showing continued worsening over the last few days. When she first came in, her urinalysis actually looked normal but she had a culture done any way in that she had altered mental status. It grew out Enterococcus. I rechecked it a couple of days later, and she had 20 to 40 WBCs per high-powered field. No blood. We re-cultured it, and I started her on Macrobid which on the culture and sensitivity it should have been sensitive to. Today, we did another cath in and out urine, and she had white blood cells too numerous to count, and red blood cells 20 to 40 per high-powered field so she has gotten worse with this. She had been treated as an outpatient for UTI with Macrobid right before coming in the hospital. She had finished that course, and was placed on doxycycline for an ear infection. During that time, she had her episode of altered mental status and probable syncope. It is possible that she has had a urinary tract infection all of the time and just was not showing up in her urine. She did have a low-grade temperature a few days ago. I believe that since this is getting worse even though her culture and sensitivity shows that she should be sensitive to levofloxacin, nitrofurantoin, penicillin and is resistant to tetracycline and sensitive to vancomycin, that I believe we should go ahead and put her on IV vancomycin. She has seemed to have failed treatment with nitrofurantoin. She has had some kidney problems in the past that went into kidney failure with metformin so I am a little bit more leery about putting her on levofloxacin right now. We will go ahead and start on vancomycin, and repeat a urinalysis in a few days. ASSESSMENT: 1. Altered mental status. 2. Enterococcus faecalis urinary tract infection. 3. Diabetes mellitus. PLAN: We will treat with IV vancomycin for now. I think this is the prudent thing to do considering worsening of the urine on urinalysis. Start the patient back on her Aricept and Namenda which she had been on at one time before and inadvertently stopped. cc: Ori Dick Jr, MD
[2018-03-22] MEDS: NAMENDA PO SCH ×2 (09:29→22:00)
[2018-03-22] MEDS ORDERED: VANCOMYCIN 2,000 MG in NS 500 ML IV ONE (11:00)
[2018-03-22] MEDS: CYMBALTA PO SCH (21:59)
[2018-03-22] MEDS: CRESTOR PO SCH (22:00)
[2018-03-22] MEDS: ARICEPT PO SCH (22:00)
[2018-03-23] MEDS: NS 1,000 ML IV SCH ×2 (05:25→17:07)
[2018-03-23] MEDS: HUMULIN R SUBQ SCH ×4 (06:00→21:36)
[2018-03-23 07:32] LABS: CALCIUM 8.2 mg/dL (8.8-10.2); POTASSIUM 4.2 mmol/L (3.5-5.1)
[2018-03-23 07:35] LABS: BASO# 0.03 X1000 (0.0-0.2); BASO% 0.4 % (0.0-0.8); EOS# 2.45 X1000 (0.0-0.7); EOS% 29.7 % (0.0-10.0); HEMATOCRIT 34.8 % (37.0-47.0); HEMOGLOBIN 10.7 g/dL (12.0-16.0); IMM GRAN# 0.03 X1000 (0.0-0.04); IMM GRAN% 0.4 % (0.0-0.5); LYMPH# 1.26 X1000 (1.2-3.4); LYMPH% 15.3 % (20.5-51.1); MCH 29.2 PG (27-31); MCHC 30.7 g/dL (33-37); MCV 94.8 FL (81-99); MONO# 0.57 X1000 (0.11-0.59); MONO% 6.9 % (1.7-9.3); MPV 11.9 FL (7.4-10.4); NEUT# 3.92 X1000 (1.4-6.5); NEUT% 47.3 % (42.2-75.2); PLT 153 X1000 (130-400); RBC 3.67 XMIL (4.2-5.4); RDW 14.9 % (11.5-14.5); WBC 8.26 X1000 (4.8-10.8)
[2018-03-23 07:49] LABS: EOS 28 % (1-10); LYMPHS 14 % (21-51); MONO 2 % (1-9); SEGS 56 % (42-75)
[2018-03-23] MEDS: COZAAR PO SCH (10:31)
[2018-03-23] MEDS: TOPROL XL PO SCH (10:31)
[2018-03-23] MEDS: LYRICA PO SCH ×2 (10:31→21:40)
[2018-03-23] MEDS: MACROBID PO SCH ×2 (10:31→21:40)
[2018-03-23] MEDS: NAMENDA PO SCH ×2 (10:31→21:40)
[2018-03-23] MEDS: LOVENOX SUBQ SCH (10:32)
--- NOTE | 2018-03-23 12:39 | PROGRESS NOTE ---
DATE: 03/23/2018 SUBJECTIVE: Ms. Gonzales is a 77-year-old white female, who was admitted with syncope. She had an MRI done which revealed microvascular changes. She is feeling better now. Her vital signs are stable. She had a urine culture that grew Enterococcus faecalis sensitive to vancomycin, which she is getting. She also is getting Macrobid. Overall condition is otherwise stable. -3 cc: MD Ori Yin Jr, MD
[2018-03-23] MEDS: CRESTOR PO SCH (21:40)
[2018-03-23] MEDS: CYMBALTA PO SCH (21:40)
[2018-03-23] MEDS: ARICEPT PO SCH (21:40)
[2018-03-23] MEDS: VANCOMYCIN 1,750 MG in NS 250 ML IV SCH (21:49)
[2018-03-24] MEDS: VANCOMYCIN 1,750 MG in NS 250 ML IV SCH (04:16)
[2018-03-24] MEDS: HUMULIN R SUBQ SCH ×4 (06:13→23:14)
[2018-03-24 07:47] LABS: CALCIUM 8.4 mg/dL (8.8-10.2); POTASSIUM 3.9 mmol/L (3.5-5.1)
[2018-03-24] MEDS: NAMENDA PO SCH ×2 (08:34→21:34)
[2018-03-24] MEDS: COZAAR PO SCH (08:34)
[2018-03-24] MEDS: TOPROL XL PO SCH (08:34)
[2018-03-24] MEDS: MACROBID PO SCH ×2 (08:34→21:34)
[2018-03-24] MEDS: LYRICA PO SCH ×2 (08:34→21:36)
[2018-03-24] MEDS: LOVENOX SUBQ SCH (08:35)
[2018-03-24 09:33] LABS: BASO# 0.02 X1000 (0.0-0.2); BASO% 0.3 % (0.0-0.8); EOS# 1.92 X1000 (0.0-0.7); EOS% 24.3 % (0.0-10.0); HEMATOCRIT 33.7 % (37.0-47.0); HEMOGLOBIN 10.5 g/dL (12.0-16.0); IMM GRAN# 0.05 X1000 (0.0-0.04); IMM GRAN% 0.6 % (0.0-0.5); LYMPH# 1.46 X1000 (1.2-3.4); LYMPH% 18.5 % (20.5-51.1); MCH 29.1 PG (27-31); MCHC 31.2 g/dL (33-37); MCV 93.4 FL (81-99); MONO% 7.6 % (1.7-9.3); MPV 11.6 FL (7.4-10.4); NEUT# 3.86 X1000 (1.4-6.5); NEUT% 48.7 % (42.2-75.2); PLT 154 X1000 (130-400); RBC 3.61 XMIL (4.2-5.4); RDW 14.5 % (11.5-14.5); WBC 7.91 X1000 (4.8-10.8)
[2018-03-24 09:42] LABS: BANDS 5 % (0-1); EOS 19 % (1-10); LYMPHS 23 % (21-51); MONO 6 % (1-9); SEGS 47 % (42-75)
[2018-03-24] MEDS: NS 1,000 ML IV SCH ×2 (12:17→13:31)
--- NOTE | 2018-03-24 17:05 | PROGRESS NOTE ---
DATE: 03/24/2018 Ms. Saenz has been somewhat drowsy and has not been eating. Her vital signs are stable, abdomen soft, nontender. She has enterococcus faecalis related UTI is on vancomycin. Her white count is 7.01, hemoglobin 10.5, hematocrit 33.7, electrolytes are normal, overall condition is not much changed. -3 cc: MD Ori Yin Jr, MD
[2018-03-24] MEDS: CYMBALTA PO SCH (21:34)
[2018-03-24] MEDS: ARICEPT PO SCH (21:34)
[2018-03-24] MEDS: CRESTOR PO SCH (21:34)
[2018-03-25 05:22] LABS: URINE SOURCE CATH
[2018-03-25 05:25] LABS: BILIRUBIN URINE NEGATIVE (NEGATIVE); BLOOD URINE NEGATIVE (NEGATIVE); COLOR YELLOW; GLUCOSE URINE NEGATIVE (NEGATIVE); KETONE URINE 20 mg/dL (NEGATIVE); LEUKOCYTES URINE MODERATE (NEGATIVE); NITRITE URINE NEGATIVE (NEGATIVE); PROTEIN URINE TRACE mg/dL (NEGATIVE); SP GRAVITY URINE 1.009; TURBIDITY URINE CLEAR (CLEAR); UROBILINOGEN URINE NORMAL (NORMAL)
[2018-03-25 05:31] LABS: UR EPITHELIAL CELLS <10 /HPF (<10); URINE BACTERIA NEGATIVE /HPF; URINE RBC <10 /HPF (<10); URINE WBC 20-40 /HPF (<10)
[2018-03-25 06:02] LABS: URINE YEAST PRESENT
[2018-03-25] MEDS: HUMULIN R SUBQ SCH ×4 (06:15→22:08)
[2018-03-25 07:56] LABS: BASO# 0.02 X1000 (0.0-0.2); BASO% 0.3 % (0.0-0.8); EOS# 1.66 X1000 (0.0-0.7); EOS% 24.7 % (0.0-10.0); HEMATOCRIT 33.7 % (37.0-47.0); HEMOGLOBIN 10.6 g/dL (12.0-16.0); IMM GRAN# 0.05 X1000 (0.0-0.04); IMM GRAN% 0.7 % (0.0-0.5); LYMPH# 1.36 X1000 (1.2-3.4); LYMPH% 20.2 % (20.5-51.1); MCH 29.3 PG (27-31); MCHC 31.5 g/dL (33-37); MCV 93.1 FL (81-99); MONO# 0.53 X1000 (0.11-0.59); MONO% 7.9 % (1.7-9.3); MPV 11.4 FL (7.4-10.4); NEUT% 46.2 % (42.2-75.2); PLT 155 X1000 (130-400); RBC 3.62 XMIL (4.2-5.4); RDW 14.4 % (11.5-14.5); WBC 6.72 X1000 (4.8-10.8)
[2018-03-25 08:18] LABS: CALCIUM 8.4 mg/dL (8.8-10.2); POTASSIUM 3.7 mmol/L (3.5-5.1)
[2018-03-25 08:27] LABS: BANDS 4 % (0-1); EOS 20 % (1-10); HYPOCHROM 1+; LYMPHS 12 % (21-51); MONO 6 % (1-9); SEGS 56 % (42-75)
--- NOTE | 2018-03-25 08:57 | PROGRESS NOTE ---
DATE: 03/25/2018 SUBJECTIVE: The patient says she feels a little bit better, but she slept for about 24 hours over the weekend straight through her said. OBJECTIVE: Vital Signs: Temperature 97.3 degrees Fahrenheit. Blood pressure 147/66. Oxygen saturation is 98%. HEENT: She is normocephalic. EOMI. Throat clear. Lungs: Clear to auscultation. Lungs: Without rhonchi, rales, or wheezes. Heart: Regular rate and rhythm without murmurs, gallops, or friction rubs. Abdomen: Soft. Active bowel sounds. No organomegaly or tenderness. DIAGNOSTIC: Urinalysis still shows 20 to 40 WBCs per high-power field, less blood than what she had before. She had Enterococcus faecalis in her urine. Still has some confusion, but is alert right now. PLAN: We will get a CT scan of her collecting system, and make sure she does not have any stones serving as a nidus for her infection. Continue IV vancomycin. 1. Altered mental status. 2. Urinary tract infection. 3. Diabetes mellitus. cc: Ori Dick Jr, MD
[2018-03-25] MEDS: TOPROL XL PO SCH (09:12)
[2018-03-25] MEDS: LOVENOX SUBQ SCH (09:12)
[2018-03-25] MEDS: COZAAR PO SCH (09:12)
[2018-03-25] MEDS: NAMENDA PO SCH ×2 (09:12→22:07)
[2018-03-25] MEDS: LYRICA PO SCH ×2 (09:13→22:08)
[2018-03-25] MEDS: MACROBID PO SCH ×2 (09:13→22:08)
--- NOTE | 2018-03-25 09:23 | Diag Imaging Result Doc PS360 ---
CT RENAL STONE SEARCH - 03/25/2018 INDICATION: hematuria COMPARISON: 10/13/2013 FINDINGS: There are trace bilateral pleural effusions and some mild bibasilar atelectasis. Heart size is top normal with no pericardial effusion. No radiodense renal stones. No hydronephrosis or hydroureter. There are some tiny calcified gallstones in the gallbladder. No biliary dilation. No significant gallbladder distention or inflammation. There is significant inflammatory edema about the pancreas. There is also trace pelvic free fluid. No bowel obstruction or inflammation. Powell catheter in the urinary bladder. Uterus is absent. Rectum is normal. There are moderate degenerative changes of the spine. No acute or suspicious bony lesion. IMPRESSION: 1. Acute pancreatitis. 2. Tiny calcified gallstones in the gallbladder. 3. Trace pleural effusions and trace pelvic free fluid, nonspecific. This exam was performed using automated exposure control, adjustment of mA or kV according to patient size, and/or use of iterative reconstruction technique Electronically signed by Timothy Smith 03/25/2018 9:20 AM
[2018-03-25] MEDS: VANCOMYCIN 1,750 MG in NS 250 ML IV SCH (12:11)
[2018-03-25] MEDS: NS 1,000 ML IV SCH ×2 (19:35→22:06)
[2018-03-25] MEDS: CRESTOR PO SCH (22:07)
[2018-03-25] MEDS: CYMBALTA PO SCH (22:08)
[2018-03-25] MEDS: ARICEPT PO SCH (22:08)
[2018-03-26] MEDS: NS 1,000 ML IV SCH ×5 (02:59→22:58)
[2018-03-26] MEDS: HUMULIN R SUBQ SCH ×4 (06:43→21:13)
--- NOTE | 2018-03-26 09:10 | PROGRESS NOTE ---
DATE: 03/26/2018 SUBJECTIVE: The patient is still a little confused. She is alert, but she finds it hard to articulate. Her was placed in the hospital last night, and she could not tell me what was going on with him; she tried to and finally she said "you will have to find out when you go see him." I asked her if she had been hurt in her abdomen, and she said "no", but when I pressed over her pancreas, she did have a little tenderness there and did not anywhere else. She was not very tender there but said "it did hurt some." OBJECTIVE: Blood pressure is 143/53, respirations 16, pulse 59 and regular, temperature is 97.6 degrees Fahrenheit. HEENT: She is normocephalic. EOMS intact. PERRLA. Throat clear. Lungs are clear to auscultation and percussion without rhonchi, rales, or wheezes. Heart: Regular rate and rhythm without murmurs, gallops, or friction rubs. Abdomen is soft with active bowel sounds; perhaps a little tenderness over the pancreas. Abdomen, otherwise, within normal limits. Neurologic Exam: The patient still has some confusion probably from her dementia. Urinalysis yesterday still showed pus and also yeast, so I did start her on some Diflucan. Her Powell catheter has been removed. Consultation has been made with GI. Her CT scan of her abdomen showed some small calcified gallstones and some inflammation around the pancreas consistent with acute pancreatitis, but she had not been complaining of pain before. The reason I did the CT scan was to find out if maybe she had a nidus up in her kidneys causing her urinary tract infection to continue. Instead, we found possible pancreatitis though a little bit unusual in that her amylase and lipase are both normal, and she has only very mild discomfort there. ASSESSMENT: 1. Altered mental status. 2. Urinary tract infection. 3. Questionable pancreatitis. PLAN: Consult GI. We will repeat urinalysis soon. cc: Ori Dick Jr, MD
[2018-03-26] MEDS: DIFLUCAN PO SCH (09:15)
[2018-03-26] MEDS: LYRICA PO SCH ×2 (09:15→21:08)
[2018-03-26] MEDS: TOPROL XL PO SCH (09:15)
[2018-03-26] MEDS: MACROBID PO SCH ×2 (09:15→21:08)
[2018-03-26] MEDS: COZAAR PO SCH (09:15)
[2018-03-26] MEDS: NAMENDA PO SCH ×2 (09:15→21:09)
[2018-03-26] MEDS: LOVENOX SUBQ SCH (09:16)
[2018-03-26] MEDS: VANCOMYCIN 1,750 MG in NS 250 ML IV SCH (16:39)
--- NOTE | 2018-03-26 18:37 | GASTROENTEROLOGY CONSULTATION ---
DATE: 03/26/2018 REASON FOR CONSULT: pancreatitis on imaging HISTORY OF PRESENT ILLNESS Ms. Kalli Gonzales is a 77 year old woman HTN, HLD, NIDDM, and chronic anemia who presented after being found down at home with AMS. She was recently diagnosed with UTI and ear infection. She denies any abdominal pain, change in bowel habits, dysphagia, N/V/F, rectal bleeding or melena. She has some memory loss at baseline. No personal or family history of pancreatitis. No alcohol use. Patient is tolerating a regular diabetic diet without abdominal pain. CT renal colic showed gallstones, pancreatic edema concerning for pancreatitis, and trace pleural and peritoneal fluid. REVIEW OF SYMPTOMS: as per HPI; otherwise, 12-point ROS negative PAST MEDICAL HISTORY: Hypertension, GERD, CVA, dementia, anxiety, NIDDM, anemia PAST SURGICAL HISTORY: Appendectomy, hysterectomy, tonsillectomy, cataract MEDICATIONS: Cymbalta, Toprol-XL, Crestor, losartan, Lyrica, Actos ALLERGIES: Cephalosporin, penicillin, sulfa, codeine, erythromycin, Levaquin, nitrofurantoin, haldol FAMILY HISTORY: No FHx of GI malignancies or liver disease SOCIAL HISTORY: , lives with the , quit smoking few years ago. No alcohol or substance abuse PHYSICAL EXAM VS: T 98.4, HR 66, RR 18, BP 155/89, 95% on 2L NC GEN: awake, alert, NAD HEENT: Sclerae anicteric. Moist mucous membranes. Neck: No JVD. No lymphadenopathy Cardiac: Regular rate and rhythm, no murmurs. Lungs: CTAB, no wheezing or crackles Abdomen: soft, NT/ND, NABS, no rebound or guarding Extremities: No clubbing, cyanosis or edema. Skin: WWP, no rashes or lesions Neurologic: Nonfocal Psychiatric:Normal affect. LABORATORY DATA WBC 6.7 hgb 10.6 plts 155K BMP unremarkable UA with +moderate LE, WBC 20-[address] Renal IMPRESSION: 1. Acute pancreatitis. 2. Tiny calcified gallstones in the gallbladder. 3. Trace pleural effusions and trace pelvic free fluid, nonspecific. ASSESSMENT & PLAN Ms. Kalli Gonzales is a 77 year old woman HTN, HLD, NIDDM, and chronic anemia who was admitted with AMS and question syncope found to have incidental finding of "acute pancreatitis" on imaging. CT showed gallstones without choledocholithiasis. Lipase WNL. Patient does not have any abdominal pain or significant findings on abdominal exam. She is also tolerating diabetic diet. Clinically, she does not have pancreatitis. Of note, patient has UTI and currently on macrobid and vancomycin. #Question pancreatitis on imaging: no evidence of pancreatitis on labs, hx, or exam #UTI: on abx as per primary team #Anemia: no overt bleeding; low iron; normal B12/folate; remote colonoscopy per patient; no prior EGD - check ferritin - recommend outpatient colonoscopy #HTN: on BP meds #Dementia: on home meds Will sign off. Please call with any questions or concerns. Outpatient GI follow- up to arrange colonoscopy on discharge cc: Ori Dcik Jr, MD [facility]
[2018-03-26] MEDS: CRESTOR PO SCH (21:08)
[2018-03-26] MEDS: CYMBALTA PO SCH (21:08)
[2018-03-26] MEDS: ARICEPT PO SCH (21:08)
[2018-03-27] MEDS: NS 1,000 ML IV SCH ×2 (01:21→15:43)
[2018-03-27] MEDS: HUMULIN R SUBQ SCH ×4 (06:32→21:11)
[2018-03-27 07:39] LABS: CHOLESTEROL 78 mg/dL (0-200); HDL 19 mg/dL (45-65); LDL 38 mg/dL; TRIGLYCERIDES 105 mg/dL (35-135); VLDL 21 mg/dL
[2018-03-27 07:46] LABS: BASO# 0.03 X1000 (0.0-0.2); BASO% 0.4 % (0.0-0.8); EOS# 1.66 X1000 (0.0-0.7); EOS% 23.7 % (0.0-10.0); HEMATOCRIT 34.8 % (37.0-47.0); HEMOGLOBIN 10.6 g/dL (12.0-16.0); IMM GRAN# 0.08 X1000 (0.0-0.04); IMM GRAN% 1.1 % (0.0-0.5); LYMPH# 1.58 X1000 (1.2-3.4); LYMPH% 22.5 % (20.5-51.1); MCH 28.8 PG (27-31); MCHC 30.5 g/dL (33-37); MCV 94.6 FL (81-99); MONO# 0.46 X1000 (0.11-0.59); MONO% 6.6 % (1.7-9.3); MPV 11.1 FL (7.4-10.4); NEUT% 45.7 % (42.2-75.2); PLT 157 X1000 (130-400); RBC 3.68 XMIL (4.2-5.4); RDW 14.5 % (11.5-14.5); WBC 7.01 X1000 (4.8-10.8)
[2018-03-27 07:50] LABS: CALCIUM 8.1 mg/dL (8.8-10.2); POTASSIUM 3.7 mmol/L (3.5-5.1)
[2018-03-27 08:07] LABS: BANDS 2 % (0-1); EOS 14 % (1-10); LYMPHS 26 % (21-51); MONO 2 % (1-9); SEGS 56 % (42-75)
--- NOTE | 2018-03-27 08:53 | PROGRESS NOTE ---
DATE: 03/27/2018 SUBJECTIVE: The patient apparently caught her IV on a door handle and did bleed from that we thought a pretty good bit according to the nurses. We will watch this closely. She does not feel lightheaded. She has not had her urine analysis done yet because of the bleeding, but they will get that soon. She has had no abdominal pain. Says she is feeling better overall. OBJECTIVE: Vital Signs: Blood pressure 155/61, respirations 16, pulse 56 and regular, temperature 98 degrees Fahrenheit. HEENT: She is normocephalic. Extraocular movements intact. PERRLA. Throat clear. Lungs: Clear to auscultation and percussion without rhonchi, rales, or wheezes. Heart: Regular rate and rhythm without murmurs, gallops, friction rubs. Abdomen: Soft. Active bowel sounds. No organomegaly or tenderness. Neurological: Intact grossly except for her dementia and altered mental status, which is improved. Dr. Siegel, Gastroenterology, did see the patient. He felt that clinically she did not have pancreatitis, even though it showed up on CT scan. His recommendation was to see her back for colonoscopy after she got better and has gotten out of the hospital. ASSESSMENT: 1. Altered mental status. 2. Urinary tract infection. 3. What appeared to be pancreatitis on CT scan of the abdomen and some small gallstones, but clinically has no pancreatitis. Amylase and lipase were normal. Triglycerides were 105, HDL only 19, LDL only 38. Total cholesterol is only 78. PLAN: We will continue IV antibiotics until we will see how she is doing with her urine. cc: Ori Dick Jr, MD
[2018-03-27] MEDS: MACROBID PO SCH ×2 (09:27→20:57)
[2018-03-27] MEDS: DIFLUCAN PO SCH (09:27)
[2018-03-27] MEDS: LOVENOX SUBQ SCH (09:27)
[2018-03-27] MEDS: TOPROL XL PO SCH (09:27)
[2018-03-27] MEDS: NAMENDA PO SCH ×2 (09:27→20:57)
[2018-03-27] MEDS: COZAAR PO SCH (09:27)
[2018-03-27] MEDS: LYRICA PO SCH ×2 (09:44→20:57)
[2018-03-27 11:26] LABS: URINE SOURCE CATH
[2018-03-27 11:30] LABS: BILIRUBIN URINE NEGATIVE (NEGATIVE); BLOOD URINE TRACE (NEGATIVE); COLOR YELLOW; GLUCOSE URINE NEGATIVE (NEGATIVE); KETONE URINE NEGATIVE (NEGATIVE); LEUKOCYTES URINE NEGATIVE (NEGATIVE); NITRITE URINE NEGATIVE (NEGATIVE); PROTEIN URINE 50 mg/dL (NEGATIVE); SP GRAVITY URINE 1.015; TURBIDITY URINE HAZY (CLEAR); UROBILINOGEN URINE NORMAL (NORMAL)
[2018-03-27 11:32] LABS: URINE BACTERIA NEGATIVE /HPF; URINE RBC <10 /HPF (<10); URINE WBC <10 /HPF (<10)
[2018-03-27 11:40] LABS: UR EPITHELIAL CELLS >10 /HPF (<10)
[2018-03-27] MEDS: VANCOMYCIN 1,750 MG in NS 250 ML IV SCH (20:56)
[2018-03-27] MEDS: CRESTOR PO SCH (20:57)
[2018-03-27] MEDS: CYMBALTA PO SCH (20:57)
[2018-03-27] MEDS: ARICEPT PO SCH (20:57)
[2018-03-28] MEDS: VANCOMYCIN 1,750 MG in NS 250 ML IV SCH (04:51)
[2018-03-28] MEDS: NS 1,000 ML IV SCH ×3 (04:52→20:11)
[2018-03-28] MEDS: HUMULIN R SUBQ SCH ×4 (06:22→20:11)
[2018-03-28 08:26] LABS: BASO# 0.04 X1000 (0.0-0.2); BASO% 0.5 % (0.0-0.8); EOS# 2.08 X1000 (0.0-0.7); EOS% 25.8 % (0.0-10.0); HEMATOCRIT 40.4 % (37.0-47.0); HEMOGLOBIN 12.4 g/dL (12.0-16.0); IMM GRAN% 1.2 % (0.0-0.5); LYMPH# 1.79 X1000 (1.2-3.4); LYMPH% 22.2 % (20.5-51.1); MCH 29.6 PG (27-31); MCHC 30.7 g/dL (33-37); MCV 96.4 FL (81-99); MONO# 0.46 X1000 (0.11-0.59); MONO% 5.7 % (1.7-9.3); MPV 11.4 FL (7.4-10.4); NEUT# 3.59 X1000 (1.4-6.5); NEUT% 44.6 % (42.2-75.2); PLT 168 X1000 (130-400); RBC 4.19 XMIL (4.2-5.4); RDW 14.9 % (11.5-14.5); WBC 8.06 X1000 (4.8-10.8)
[2018-03-28 08:45] LABS: CALCIUM 8.3 mg/dL (8.8-10.2)
[2018-03-28] MEDS: DIFLUCAN PO SCH (09:06)
[2018-03-28] MEDS: COZAAR PO SCH (09:06)
[2018-03-28] MEDS: LOVENOX SUBQ SCH (09:07)
[2018-03-28] MEDS: LYRICA PO SCH ×2 (09:07→20:10)
[2018-03-28] MEDS: TOPROL XL PO SCH (09:07)
[2018-03-28] MEDS: NAMENDA PO SCH ×2 (09:07→20:10)
--- NOTE | 2018-03-28 09:17 | PROGRESS NOTE ---
DATE: 03/28/2018 SUBJECTIVE: The patient is more alert. She seems to be feeling better. Says she feels better. Could tell me what year it was, thought it was February instead of March. Could not tell me what day it was. I think she is back close to baseline considering she has dementia. OBJECTIVE: Vital signs: Show blood pressure 151/55, respirations 14, pulse 63, temperature 97.4 degrees Fahrenheit. HEENT: She is normocephalic. PERRLA. Throat clear. Lungs: Clear to auscultation and percussion without rhonchi, rales, or wheezes. Heart: Regular rate and rhythm without murmurs, gallops, friction rubs. Abdomen: Soft. Active bowel sounds. No organomegaly or tenderness. Neurological exam: Intact grossly, except for some memory loss. ASSESSMENT: 1. Altered mental status. 2. Questionable syncope. 3. Urinary tract infection. 4. There was a question of pancreatitis on her CT scan of her abdomen, but clinically she did not have this and her enzymes were all normal. I do not think that she had pancreatitis. Gastroenterology wants to see her as an outpatient. PLAN: Will get physical therapy to work with her today. We will continue her vancomycin 1 more day. Her urinalysis did look clear, but she has had resistance with her Enterococcus and has had recurrence with it when we treated her recently. If she can get up and move around, we could consider discharge tomorrow. We will talk with family about whether there will be anybody to be at home with her or whether they think she can take care of herself or whether she needs to go to rehab. Physical therapy will also give us some insight. cc: Ori Dick Jr, MD
[2018-03-28 09:53] LABS: EOS 12 % (1-10); LYMPHS 22 % (21-51); MONO 2 % (1-9); SEGS 62 % (42-75)
[2018-03-28] MEDS ORDERED: SODIUM CHLORIDE 0.9% INJ SCH (11:30)
[2018-03-28] MEDS ORDERED: PROTONIX IV SCH (12:00)
--- NOTE | 2018-03-28 12:02 | GASTROENTEROLOGY PROGRESS NOTE ---
DATE: 03/28/2018 SUBJECTIVE: Patient in bed. The patient is feeling better. The patient has history of some blood in the stools in the recent past. Her last colonoscopy many years ago. We discussed the options of doing colonoscopy inpatient versus outpatient. Patient wants to do it as an outpatient. So the patient was advised to see us in clinic in 1-2 weeks of discharge to schedule outpatient colonoscopy. OBJECTIVE: Vital signs: Temperature 97.4, pulse of 63, respiratory rate of 14 , blood pressure 152/55, saturating 98% on room air. Body weight of 226 pounds. BMI of 35.9 kg. General appearance: Moderately built, moderately nourished lying in bed, in no acute distress. HEENT: No pallor. No icterus. Neck: Supple. Abdomen: Obese, soft, nontender, nondistended. No guarding or rebound. Extremities: No cyanosis, clubbing. Neurologic: Alert , awake, oriented. LABS: Hemoglobin and hematocrit is 12.4 and 40.4, white count of 8.06, platelet count of 168,000. Sodium 142, potassium 4, chloride 110, bicarb 79, BUN of 7, creatinine 1, glucose of 88, calcium is 8.3. Amylase of 147. Lipase of 10, and urinalysis showed positive protein and trace blood, more than 10 epithelial cells. Her urine culture showed Enterococcus faecalis group D and resistant to tetracycline and Synergy. IMPRESSION AND PLAN: 1. Urinary tract infection. She is on vancomycin per the primary team. 2. Rectal bleeding. I will start the patient on hemorrhoidal cream and Metamucil. She will see us in office. Will schedule an outpatient colonoscopy. 3. Deep venous thrombosis prophylaxis with Lovenox. 4. Start her on gastrointestinal prophylaxis with Protonix once daily. 5. Hyperlipidemia per the primary care doctor. 6. Question off pancreatitis on imaging, but her amylase and lipase is normal. 7. Question of dementia. She is being treated with Aricept. DISPOSITION: The patient will follow up in clinic in 1-2 weeks of discharge. The above plans were discussed with the patient and all questions answered. Please call us with any questions. cc: MD Ori Kunz Jr, MD MTD[facility]
[2018-03-28] MEDS: ANUSOL-HC CREAM PR SCH ×2 (16:16→20:10)
[2018-03-28] MEDS: MACROBID PO SCH (19:37)
[2018-03-28] MEDS: ARICEPT PO SCH (20:09)
[2018-03-28] MEDS: CRESTOR PO SCH (20:09)
[2018-03-28] MEDS: CYMBALTA PO SCH (20:10)
[2018-03-29] MEDS: NS 1,000 ML IV SCH (04:09)
[2018-03-29] MEDS: VANCOMYCIN 1,750 MG in NS 250 ML IV SCH (05:08)
[2018-03-29] MEDS: HUMULIN R SUBQ SCH (06:26)
[2018-03-29 07:33] VITALS: BP 151/58
[2018-03-29 07:44] LABS: CALCIUM 7.8 mg/dL (8.8-10.2); CREATININE 0.9 mg/dL (0.5-0.9); POTASSIUM 3.5 mmol/L (3.5-5.1)
[2018-03-29 07:45] LABS: BASO# 0.03 X1000 (0.0-0.2); BASO% 0.4 % (0.0-0.8); EOS# 1.48 X1000 (0.0-0.7); EOS% 21.7 % (0.0-10.0); HEMATOCRIT 31.7 % (37.0-47.0); HEMOGLOBIN 9.7 g/dL (12.0-16.0); IMM GRAN# 0.09 X1000 (0.0-0.04); IMM GRAN% 1.3 % (0.0-0.5); LYMPH# 1.92 X1000 (1.2-3.4); LYMPH% 28.1 % (20.5-51.1); MCH 28.9 PG (27-31); MCHC 30.6 g/dL (33-37); MCV 94.3 FL (81-99); MONO# 0.42 X1000 (0.11-0.59); MONO% 6.1 % (1.7-9.3); MPV 11.5 FL (7.4-10.4); NEUT# 2.89 X1000 (1.4-6.5); NEUT% 42.4 % (42.2-75.2); PLT 155 X1000 (130-400); RBC 3.36 XMIL (4.2-5.4); RDW 14.6 % (11.5-14.5); WBC 6.83 X1000 (4.8-10.8)
[2018-03-29 07:58] LABS: BANDS 4 % (0-1); EOS 20 % (1-10); HYPOCHROM 1+; LARGE PLATELETS 1+; LYMPHS 22 % (21-51); MONO 4 % (1-9); SEGS 48 % (42-75)
[2018-03-29] MEDS ORDERED: METAMUCIL PO SCH (09:00)
[2018-03-29] MEDS: NAMENDA PO SCH (09:23)
[2018-03-29] MEDS: LYRICA PO SCH (09:23)
[2018-03-29] MEDS: TOPROL XL PO SCH (09:24)
[2018-03-29] MEDS: DIFLUCAN PO SCH (09:24)
[2018-03-29] MEDS: COZAAR PO SCH (09:24)
[2018-03-29] MEDS: ANUSOL-HC CREAM PR SCH (09:27)
[2018-03-29] MEDS: LOVENOX SUBQ SCH (09:28)
--- NOTE | 2018-03-29 09:58 | DISCHARGE SUMMARY ---
ADMISSION DATE: 03/17/2018 DISCHARGE DATE: 03/29/2018 FINAL DIAGNOSES: 1. Altered mental status. 2. Possible syncope. 3. Urinary tract infection. 4. Dementia. 5. Generalized weakness. SECONDARY DIAGNOSES: 1. AODM. 2. Hypertension. 3. Hyperlipidemia. 4. Alzheimer dementia. 5. Chronic kidney disease. 6. Also, patient had rectal bleeding from presumed hemorrhoids. There was also question in the hospital about her having pancreatitis, but clinically she did not have this. There was some inflammation seen around the pancreas on CT scan. CONSULTATIONS: Consultations were done with Dr. Barron. Neurology and Dr. Arndt, Gastroenterology. Dr. Arndt has discussed her GI bleed and has treated her for hemorrhoids and wants to do a colonoscopy as an outpatient. He wants to see her back in his office in [address] Barron assessed her for her altered mental status which has improved, but she does have underlying dementia. She has actually had this diagnosed back 2 to 3 years ago and was on medication for a period of time and then just quit taking it. HISTORY OF PRESENT ILLNESS: The patient is a 77-year-old white female who the night before she came to the hospital was acting somewhat confused. Her had noticed that she was not quite right, but he ended up going to bed and she apparently went to the bathroom and fell and laid on the floor for the rest of the night. She does not remember much of anything. She is not sure whether she had syncope or not. She came in the hospital. We watched her closely for rhabdomyolysis, but found none. Did a workup, including scans of her head, neurological assessment, cardiac assessment and really found nothing to explain what happened. Her initial urinalysis was normal. However, a urine culture was done and she grew out Enterococcus faecalis and it was sensitive to Macrobid. I placed her on Macrobid, but she did not seem to respond with any improvement over 2 or 3 days. I did do a CT scan of her abdomen to see if she might have some sort of obstruction and that was essentially normal, though incidentally there was found some inflammation around the pancreas. We did amylase and lipase which were normal. She had no significant pain. Gastroenterology did not think that she had pancreatitis. I changed her over to vancomycin IV and urine has since cleared. She has had a little rectal bleeding that was treated for hemorrhoids by GI and they want to do a colonoscopy on her. She preferred to have this done as an outpatient. She has been stable with this, so we will do this as an outpatient. We did go ahead and start her on Aricept and Namenda for her dementia. She has been getting up and walking around. She is back to her baseline. There is some dementia there. Quite possibly this was all a urinary tract infection. She had been on some antibiotics orally for respiratory distress with some doxycycline and had been on Macrobid before that for urinary tract infection, and that might have influenced the urinalysis. PHYSICAL EXAMINATION: Vital Signs: Temp is 97.9 degrees Fahrenheit, pulse 61 and regular, respirations 16, blood pressure 151/58. HEENT: She is normocephalic. EOMS intact. PERRLA. Throat clear. Lungs: Lungs are clear to auscultation and percussion without rhonchi, rales or wheezes. Heart: Regular rate and rhythm without murmurs, gallops or friction rubs. Abdomen: Soft. Active bowel sounds. No organomegaly or tenderness. Neurologic: Cranial nerves 2-12 intact. Cerebellar, sensory, and motor intact. Reflexes 1+ all. ASSESSMENT AND PLAN: Patient is a little confused. Having no rectal bleeding now. Will go to rehab. I have discussed this with family. I would like to see the patient when she gets out of rehab. cc: Ori Dick Jr, MD [facility]TD[facility]
== END 2018-03-29 14:46 | DRG 690 ==
LOC: 3N 10:10 → ED 10:10 → 3N 03-26 05:30
PROVIDERS: ADMIT Emergency Medicine; ATTEND Emergency Medicine
CPT/HCPCS: 51701; 70450; 70551; 71010; 71045; 74176; 80048; 80053; 80061; 80101; 80202; 80301; 80307; 80324; 80345; 80346; 80353; 80358; 80361; 80365; 81001; 82150; 82550; 82948; 83690; 83735; 83874; 83992; 84484; 85025; 85610; 85730; 87040; 87077; 87088; 87186; 93005; 93306; 94760; 94761; 95816; 97110; 97116; 97162; 97530; 99285; A9270; C9113; G0431; G0434; G0479; G0480; J1650; J3370; J3480; J7030; J7040; J7050; S0164; XXXXX

== ENCOUNTER 2019-01-16 15:39 | Inpatient (IN) ==
[2019-01-16] MEDS ORDERED: NS 500 ML IV ONE ×2 (16:02→17:38)
[2019-01-16 16:31] LABS: BASO# 0.01 X1000 (0.0-0.2); BASO% 0.1 % (0.0-0.8); EOS# 0.14 X1000 (0.0-0.7); EOS% 1.8 % (0.0-10.0); HEMOGLOBIN 13.5 g/dL (12.0-16.0); IMM GRAN# 0.01 X1000 (0.0-0.04); IMM GRAN% 0.1 % (0.0-0.5); LYMPH# 2.26 X1000 (1.2-3.4); LYMPH% 28.6 % (20.5-51.1); MCH 30.4 PG (27-31); MCHC 31.4 g/dL (33-37); MCV 96.8 FL (81-99); MONO% 5.1 % (1.7-9.3); MPV 11.5 FL (7.4-10.4); NEUT# 5.08 X1000 (1.4-6.5); NEUT% 64.3 % (42.2-75.2); PLT 125 X1000 (130-400); RBC 4.44 XMIL (4.2-5.4); RDW 14.7 % (11.5-14.5)
--- NOTE | 2019-01-16 16:43 | Diag Imaging Result Doc PS360 ---
EXAM: CHEST-1 VIEW HISTORY: syncope TECHNIQUE: Single COMPARISON: 03/16/2018 FINDINGS: The lungs are well expanded. The heart is not enlarged. The vessels are not distended. There are no infiltrates. No effusion identified. IMPRESSION: Negative exam. Electronically signed by Philipp Underwood 01/16/2019 4:40 PM
--- NOTE | 2019-01-16 17:22 | Diag Imaging Result Doc PS360 ---
EXAM: CT HEAD W/O CONTRAST HISTORY: syncope TECHNIQUE: CT head without contrast COMPARISON: 03/16/2018 FINDINGS: No parenchymal hemorrhage. No epidural or subdural hematoma. No subarachnoid hemorrhage. Moderate to prominent atrophy. No mass identified on this noncontrasted exam. No hydrocephalus. No sinus opacification. IMPRESSION: No hemorrhage. Moderate to prominent atrophy. This exam was performed using automated exposure control, adjustment of mA or kV according to patient size, and/or use of iterative reconstruction technique. Electronically signed by Phiilpp Underwood 01/16/2019 5:20 PM
[2019-01-16 17:24] LABS: ALBUMIN 4.1 g/dL (3.5-5.0); CALCIUM 8.7 mg/dL (8.8-10.2); CREATININE 2.6 mg/dL (0.5-0.9); POTASSIUM 4.3 mmol/L (3.5-5.1); TOTAL BILIRUBIN 0.4 mg/dL (0.20-1.00); TOTAL PROTEIN 6.9 g/dL (6.3-8.3)
[2019-01-16 17:37] LABS: URINE SOURCE CLEAN CATCH
[2019-01-16 17:45] LABS: BILIRUBIN URINE NEGATIVE (NEGATIVE); BLOOD URINE NEGATIVE (NEGATIVE); COLOR YELLOW; GLUCOSE URINE NEGATIVE (NEGATIVE); KETONE URINE NEGATIVE (NEGATIVE); LEUKOCYTES URINE LARGE (NEGATIVE); NITRITE URINE NEGATIVE (NEGATIVE); PROTEIN URINE NEGATIVE (NEGATIVE); SP GRAVITY URINE 1.005; TURBIDITY URINE CLEAR (CLEAR); UROBILINOGEN URINE NORMAL (NORMAL)
[2019-01-16 17:47] LABS: UR EPITHELIAL CELLS <10 /HPF (<10); URINE BACTERIA 1+ /HPF; URINE RBC <10 /HPF (<10); URINE WBC 20-40 /HPF (<10)
[2019-01-16 17:51] LABS: UR AMPHETAMINES QUAL NONE DETECTED (NONE DETECT); UR BARBITUATES QUAL NONE DETECTED (NONE DETECT); UR BENZODIAZEPIN QUAL NONE DETECTED (NONE DETECT); UR CANNABINOIDS QUAL NONE DETECTED (NONE DETECT); UR COCAINE QUAL NONE DETECTED (NONE DETECT); UR METHADONE QUAL NONE DETECTED (NONE DETECT); UR METHAMPHETAMINE QUAL NONE DETECTED (NONE DETECT); UR OPIATES QUAL NONE DETECTED (NONE DETECT); UR OXYCODONE QUAL NONE DETECTED (NONE DETECT); UR PCP QUAL NONE DETECTED (NONE DETECT); UR PROPOXYPHENE QUAL NONE DETECTED (NONE DETECT); UR TCA QUAL NONE DETECTED (NONE DETECT)
--- NOTE | 2019-01-16 18:06 | PROVIDER DOCUMENTATION ---
This chart was entered by Keshia Pascual Scribe, acting as scribe for Aj Siddiqui MD. HPI-General Adult - General Chief Complaint: Near Syncope Stated Complaint: Near syncope Time Seen by Provider: 01/16/19 15:50 Source: patient, family, EMS Allergies/Adverse Reactions: Patient Allergies Allergy/AdvReac Type Severity Reaction Status Date / Time Cephalosporins Allergy Mild HIVES Verified 01/16/19 15:50 Penicillins Allergy Mild HIVES Verified 01/16/19 15:50 Sulfa (Sulfonamide Allergy Mild HIVES Verified 01/16/19 15:50 Antibiotics) codeine Allergy NAUSEA/VOMI Verified 01/16/19 15:50 TING erythromycin base Allergy HIVES Verified 01/16/19 15:50 [Erythromycin Base] levofloxacin [From Levaquin] Allergy HIVES Verified 01/16/19 15:50 nitrofurantoin Allergy HIVES Verified 01/16/19 15:50 [From Macrobid] nitrofurantoin Allergy HIVES Verified 01/16/19 15:50 macrocrystalline * [From Macrobid] haloperidol [From Haldol] AdvReac Unknown Verified 01/16/19 15:50 haloperidol lactate * AdvReac Unknown Verified 01/16/19 15:50 [From Haldol] Home Medications: Home Medication List Medication Instructions Recorded Confirmed Last Taken Type Duloxetine [Cymbalta] 60 mg PO HS 10/08/13 01/16/19 03/02/18 19:00 History Metoprolol Succinate E.r. [Toprol 50 mg PO DAILY 02/24/14 01/16/19 03/03/18 08:00 History Xl] Pregabalin [Lyrica] 150 mg PO BID 04/26/15 01/16/19 03/03/18 08:00 History Furosemide [Lasix] 20 mg PO DAILY 03/16/18 01/16/19 Unknown History Guaifenesin/Dm E.r. [Mucinex Dm] 1 each PO DAILY 03/16/18 01/16/19 Unknown History Multivitamin/Iron/Folic Acid 1 each PO DAILY 03/16/18 01/16/19 Unknown History [Centrum Adults Tablet] Omeprazole [Prilosec] 20 mg PO DAILY@0700 03/16/18 01/16/19 Unknown History ROSUVAstatin [Crestor] 20 mg PO DAILY 03/16/18 01/16/19 Unknown History Sitagliptin [Januvia] 50 mg PO DAILY 03/16/18 01/16/19 Unknown History - History of Present Illness -Gen Adult Nature of Presenting Problems: 78 y/o female presents to ED with episode of near syncope after having a bowel movement onset just prior to arrival. Pt reports she felt faint, walked to the bedroom adjacent to the bathroom, and collapsed onto her bed. Pt states she saw dark spots before collapsing. Pt denies any pain. Family of pt reports she has hx of similar symptoms. Pt states she ate too much and she just feels tired. Pt is alert and oriented. Location of Pain/Injury: reports: none Pain Radiation: reports: no radiation Quality of Pain: reports: none Severity: reports: mild Onset/Duration: reports: just prior to arrival Timing: reports: still present Context/Activities at Onset: reports: none Modifying Factors: improves with: nothing Associated Symptoms: reports: other (near syncope after bowel movement) Similar Symptoms Previously?: Yes Recently seen or treated by another doctor?: No Review of Systems - Adult - REVIEW OF SYSTEMS - ADULT Constitutional: denies: chills, fever Eyes: reports: no symptoms reported Ears, Nose, Mouth & Throat: reports: no symptoms reported Cardiovascular: denies: chest pain, palpitations Respiratory: denies: cough, shortness of breath Gastrointestinal: reports: no symptoms reported Genitourinary: reports: no symptoms reported Musculoskeletal: reports: no symptoms reported Integumentary: reports: no symptoms reported Neurological: reports: other (near syncope after bowel movement). denies: dizziness/vertigo, seizure Psychiatric: reports: no symptoms reported Endocrine: reports: no symptoms reported Hematologic/Lymphatic: reports: no symptoms reported Allergic/Immunologic: reports: no symptoms reported All Other Systems: Reviewed and Negative Past History - Adult - PAST MEDICAL HISTORY-ADULT Review of Records: reports: Old Records Reviewed, Nursing Assessment Review, Medications Reviewed Major Childhood Illnesses: reports: denies history Cardiovascular: reports: arrhythmia, CHF, HTN, other (dysrhythmis) Respiratory: reports: asthma, COPD Gastrointestinal: reports: GERD Genitourinary: reports: dialysis, kidney disease Neurological: reports: CVA, dementia, Seizures/Epilepsy Psychiatric: reports: anxiety Endocrine/Immune: reports: anemia, Diabetes, hypoglycemia Other Conditions: reports: other (pleural effusion) - PRIOR SURGERIES/PROCEDURES Surgical/Procedure History: reports: appendectomy, hysterectomy, tonsillectomy - IMMUNIZATION STATUS Childhood Immunizations: UTD Flu Vaccine: UTD - FAMILY HISTORY Family History: reviewed, not pertinent - SOCIAL HISTORY Smoking: quit greater than 1 year Substance Use: none/never Alcohol Use Frequency: never Living Situation: family Physical Exam-General - PHYSICAL EXAM-ADULT Initial Vital Signs Reviewed: Yes (HR 61; bp 108/87) - CONSTITUTIONAL General Appearance: appears well, alert, no apparent distress - EYES Eyes: PERRL/EOMI, pink conjunctivae - HEAD, EARS, NOSE, MOUTH & THROAT HENMT: normocephalic/atraumatic, moist mucous membranes, normal ENT inspection - NECK Neck: non-tender, full range of motion - RESPIRATORY Respiratory: chest non-tender, lungs clear, normal breath sounds - CARDIOVASCULAR Cardiovascular: normal peripheral pulses, regular rate, rhythm - GASTROINTESTINAL (ABDOMEN) Abdominal Exam: normal bowel sounds, non tender, soft - MUSCULOSKELETAL Back Exam: normal inspection, no CVA tenderness, no vertebral tenderness Extremity: normal range of motion, non-tender - SKIN Integumentary: normal color, warm/dry - NEUROLOGIC Neurologic: motor weakness (bilateral lower extremity weakness) - PSYCHIATRIC Psych/Mental Status: normal mood/affect, normal thought content, normal thought process, oriented x 3 Progress - PLAN OF CARE/RESULTS Progress/Plan/Lab Results: Vital Signs - 8 hr 01/16/19 15:35 Temperature 97.7 F Pulse Rate 68 Respiratory Rate 18 Blood Pressure 111/62 O2 Sat by Pulse Oximetry 98 Laboratory Results - last 24 hr 01/16/19 15:50 POC Glucose 102 Orders Category Date Time Status Cardiac Monitoring DIRECTED Care 01/16/19 16:02 Active CHEST-1 VIEW [RAD] Stat Exams 01/16/19 16:[address] HEAD W/O CONTRAST [CT] Stat Exams 01/16/19 16:02 Completed CBC WITH DIFF [HEME] Stat Lab 01/16/19 16:05 Completed CK PROFILE [SP CHEM] Stat Lab 01/16/19 16:05 Completed COMPREHENSIVE METABOLIC PANEL [CHEM] Stat Lab 01/16/19 16:05 Completed TROPONIN T Stat Lab 01/16/19 16:05 Completed URINALYSIS W/POSS RFLX CULT [URINALYSIS] Stat Lab 01/16/19 17:35 Completed URINE DRUG SCREEN PL Stat Lab 01/16/19 17:35 Received 0.9% Sodium Chloride Inj [Ns] 500 ml Med 01/16/19 16:02 Discontinued IV 999 mls/hr 0.9% Sodium Chloride Inj [Ns] 500 ml Med 01/16/19 17:38 Active IV 999 mls/hr Laboratory Tests 01/16/19 01/16/19 01/16/19 15:50 16:05 16:05 WBC RBC Hgb Hct MCV MCH MCHC RDW Std Deviation Plt Count MPV Immature Gran % (Auto) Neut % (Auto) Lymph % (Auto) Major % (Auto) Eos % (Auto) Baso % (Auto) Immature Gran # (Auto) Neut # (Auto) Lymph # (Auto) Major # (Auto) Eos # (Auto) Baso # (Auto) Sodium Potassium Chloride Carbon Dioxide Anion Gap BUN Creatinine Estimated GFR/1.73 m2 BUN/Creatinine Ratio Glucose POC Glucose 102 Calculated Osmolality Calcium Total Bilirubin AST ALT Alkaline Phosphatase Creatine Kinase 45 Troponin T < 0.010 Total Protein Albumin Globulin Albumin/Globulin Ratio Urine Source Urine Color Urine Turbidity Urine pH Ur Specific [place] Urine Protein Ur Glucose (Stick) Ur Ketones (Stick) Urine Blood Urine Nitrite Urine Bilirubin Urobilinogen Dipstick Urine Leukocytes Urine WBC (Auto) Urine RBC (Auto) U Epithel Cells (Auto) Urine Bacteria (Auto) 01/16/19 01/16/19 01/16/19 16:05 16:05 17:35 WBC 7.90 RBC 4.44 Hgb 13.5 Hct 43.0 MCV 96.8 MCH 30.4 MCHC 31.4 L RDW Std Deviation 14.7 H Plt Count 125 L MPV 11.5 H Immature Gran % (Auto) 0.1 Neut % (Auto) 64.3 Lymph % (Auto) 28.6 Major % (Auto) 5.1 Eos % (Auto) 1.8 Baso % (Auto) 0.1 Immature Gran # (Auto) 0.01 Neut # (Auto) 5.08 Lymph # (Auto) 2.26 Major # (Auto) 0.40 Eos # (Auto) 0.14 Baso # (Auto) 0.01 Sodium 141 Potassium 4.3 Chloride 103 Carbon Dioxide 24 L Anion Gap 14 BUN 37 H Creatinine 2.6 H Estimated GFR/1.73 m2 18 BUN/Creatinine Ratio 14 Glucose 114 H POC Glucose Calculated Osmolality 291 Calcium 8.7 L Total Bilirubin 0.40 AST 29 ALT 23 Alkaline Phosphatase 87 Creatine Kinase Troponin T Total Protein 6.9 Albumin 4.1 Globulin 3.0 Albumin/Globulin Ratio 1.0 Urine Source CLEAN CATCH Urine Color YELLOW Urine Turbidity CLEAR Urine pH 6.0 Ur Specific [place] 1.005 Urine Protein NEGATIVE Ur Glucose (Stick) NEGATIVE Ur Ketones (Stick) NEGATIVE Urine Blood NEGATIVE Urine Nitrite NEGATIVE Urine Bilirubin NEGATIVE Urobilinogen Dipstick NORMAL Urine Leukocytes LARGE A Urine WBC (Auto) 20-40 A Urine RBC (Auto) <10 U Epithel Cells (Auto) <10 Urine Bacteria (Auto) 1+ Result Diagrams: 01/16/19 16:05 01/16/19 16:05 - EKG 1 Time of EKG reading by physician:: 15:47 EKG Read and Signed by:: Aj Siddiqui EKG Interpretation (*Must complete 3 of following elements*): Abnormal Rate: 68 Rhythm: Sinus with 1st degree AV block [place]: left QRS: other (septal infarct) [place] Interval: normal ST Wave: normal - XRAY 1 XRAY Study: Chest Impression: See EMR Report ([facility] - [address] [place] [address] [address], [place] [address] [facility] - [address] [place] [address] Department of Imaging Patient: SHANKAR JOSEPH Date: 01/16/19#: [id number] : 1940DM Status: REG [facility]#: [id number] Age/Sex: 78/FRoom/Bed: Loc: P.ED Ordering Physician: Aj Siddiqui MD Family Physician: None,PCP Reason for Procedure: syncope ____ Signed EXAM: CHEST-1 VIEW HISTORY: syncope TECHNIQUE: Single COMPARISON: 03/16/2018 FINDINGS: The lungs are well expanded. The heart is not enlarged. The vessels are not distended. There are no infiltrates. No effusion identified. IMPRESSION: Negative exam. Electronically signed by Philipp Underwood 01/16/2019 4:40 PM 01/16/19 1640 Interpreting Physician: Philipp Underwood MD Dictated Date/Time: 01/16/19 1640 cc: Aj Siddiqui MD; None,PCP) - CT/MRI 1 CT Study: Head Impression: See EMR Report ([facility] - [address] [facility], [address], [place] [address] [facility] - [address] , [place] [address] Department of Imaging Patient: SHANKAR JOSEPH Date: 01/16/19#: [id number] : 1940DM Status: REG [facility]#: [id number] Age/Sex: 78/FRoom/Bed: Loc: P.ED Ordering Physician: Aj Siddiqui MD Family Physician: None,PCP Reason for Procedure: syncope Signed EXAM: CT HEAD W/O CONTRAST HISTORY: syncope TECHNIQUE: CT head without contrast COMPARISON: 03/16/2018 FINDINGS: No parenchymal hemorrhage. No epidural or subdural hematoma. No subarachnoid hemorrhage. Moderate to prominent atrophy. No mass identified on this noncontrasted exam. No hydrocephalus. No sinus opacification. IMPRESSION: No hemorrhage. Moderate to prominent atrophy. This exam was performed using automated exposure control, adjustment of mA or kV according to patient size, and/or use of iterative reconstruction technique. Electronically signed by Philipp Underwood 01/16/2019 5:20 PM 01/16/19 1720 Interpreting Physician: Philipp Underwood MD Dictated Date/Time: 01/16/19 1717 cc: Aj Siddiqui MD; None,PCP) - CONSULTS/PCP/HOSPITALIST Notification #1 *Consult/PCP/Hospitalist*: Dr. Chery Time Discussed: 18:02 Reason/Comments: Syncope; RADHA Consult Disposition: Admit Departure - Departure Date of Disposition Decision: 01/16/19 Time of Disposition Decision: 17:30 DIAGNOSIS: Syncope and collapse, RADHA (acute kidney injury) Disposition: ADMITTED INPATIENT 09 Certified Medical Emergency: Emergent Condition: Good Referrals and Follow-Ups: None,PCP [Primary Care Provider] - - Critical Care Note This patient required my direct & personal management of CC.: No Attestation - Physician/ JOHN Attestation Patient care was provided by Advanced Practice Provider:: No The physician spent face to face time with patient:: Yes Advanced Practice Provider documentation review:: Supervising physician onsite and consulted in the evaluation and care of this patient. The physician did have a face to face encounter with the patient. This chart was documented by the indicated scribe, (Keshia Pascual, Scrobed) and accurately reflects the services I performed and decisions made by me, Aj Siddiqui MD, as attested by the provider's signature.
[2019-01-16] MEDS ORDERED: ZOFRAN IV PRN (18:16)
[2019-01-16] MEDS ORDERED: TYLENOL PO PRN (18:16)
[2019-01-16] MEDS: NS 1,000 ML IV SCH (18:26)
--- NOTE | 2019-01-16 19:01 | HISTORY AND PHYSICAL ---
CHIEF COMPLAINT: Syncope. HISTORY OF PRESENT ILLNESS: The patient is an 78-year-old female who presented to the ER with syncope and collapse. She was at home. She had gone to the restroom and collapsed. She apparently had collapsed prior to getting here. Stated she felt faint when she was walking to the restroom. It was adjacent to her bedroom. Thankfully, she was able to fall onto her bed and not actually get hurt. When EMS arrived, they noted that her heart rate was low in the 40s. After arriving to the ER, her heart rate has been in the mid 50s after atropine. Of note, the patient's creatinine earlier this year was 0.9 but has steadily increased to 1.6, then 2.0, and today 2.6. ALLERGIES: Cephalosporins, penicillin, sulfa causing hives, codeine, erythromycin causing hives, Levaquin causing hives, nitrofurantoin causing hives. MEDICATIONS: Cymbalta 60, metoprolol 50, Lyrica 150 b.i.d., Lasix 20, Mucinex, omeprazole, Crestor 20, and Januvia 50. REVIEW OF SYSTEMS: The patient notes otherwise she feels fine. She states she feels like she has been drinking normally at home. Denies any vomiting, constipation, melena, or hematochezia. Denies any dysuria, urinary frequency, or urgency. Denies hesitancy, polyuria or polydipsia. PAST MEDICAL HISTORY: Significant for diabetes, high cholesterol, congestive heart failure, hypertension, reflux, history of kidney disease. She has had a stroke in the past, has a diagnosis of dementia, and has had pleural effusion. Has chronic anxiety and has had seizures in the past. FAMILY HISTORY: Noncontributory. SOCIAL HISTORY: Patient stopped smoking greater than a year ago. She lives at home. Dr. Dick is her primary care. She does not drink alcohol. PHYSICAL EXAMINATION: VITAL SIGNS: Reviewed. Heart rate currently 56, respiratory rate 20, BP 108/87. GENERAL: Patient is lying in the bed. She is awake, alert. She is in no respiratory distress. HEENT: Normocephalic. NECK: Supple. CARDIOVASCULAR: Regular rate. CHEST: Clear. ABDOMEN: Soft. EXTREMITIES: Moves all extremities. NEUROLOGIC: No focal changes. ASSESSMENT: 1. Syncope with collapse. 2. Bradycardia, likely iatrogenically caused with her metoprolol. 3. Acute renal failure. Creatinine is elevated over her most recent labs, but certainly more elevated than her labs earlier this year. She is on Januvia, which certainly could be causing or contributing. She is also on Lasix. 4. Diabetes. 5. Hypertension. 6. Congestive heart failure. PLAN: We are going to admit the patient to hospital. IV fluids. We will hold her Crestor, and Lasix and Januvia and place her on sliding scale insulin and pattern Accu-Cheks, recheck her labs as well as an A1c in the a.m., and will follow. cc: Dennis Chery MD
[2019-01-16] MEDS: HUMALOG (PARKWAY) SUBQ SCH (20:39)
[2019-01-16] MEDS: LYRICA PO SCH (20:40)
[2019-01-16] MEDS ORDERED: CYMBALTA PO SCH (21:00)
[2019-01-17 05:27] VITALS: BP 117/54
[2019-01-17] MEDS: NS 1,000 ML IV SCH (05:56)
[2019-01-17] MEDS: PRILOSEC PO SCH ×2 (05:58→06:28)
[2019-01-17] MEDS: HUMALOG (PARKWAY) SUBQ SCH (06:28)
[2019-01-17 06:42] LABS: HEMATOCRIT 39.7 % (37.0-47.0); MCH 29.8 PG (27-31); MCHC 30.2 g/dL (33-37); MCV 98.5 FL (81-99); MPV 11.7 FL (7.4-10.4); RBC 4.03 XMIL (4.2-5.4); RDW 14.9 % (11.5-14.5); WBC 4.86 X1000 (4.8-10.8)
[2019-01-17 07:01] LABS: ALBUMIN 3.4 g/dL (3.5-5.0); CALCIUM 8.1 mg/dL (8.8-10.2); CREATININE 2.1 mg/dL (0.5-0.9); MAGNESIUM 2.4 mg/dL (1.5-2.7); POTASSIUM 3.5 mmol/L (3.5-5.1); TOTAL BILIRUBIN 0.3 mg/dL (0.20-1.00); TOTAL PROTEIN 5.9 g/dL (6.3-8.3)
[2019-01-17 07:08] LABS: HEMOGLOBIN A1C 6.3 % (4.8-6.0)
[2019-01-17] MEDS: LYRICA PO SCH (08:59)
--- NOTE | 2019-01-17 14:58 | DISCHARGE SUMMARY ---
ADMISSION DATE: 01/16/2019 DISCHARGE DATE: 01/17/2019 PRIMARY CARE PROVIDER: None. PERTINENT PROCEDURES: Chest x-ray, negative exam. Head CT, no hemorrhage, moderate to prominent atrophy. DISCHARGE DIAGNOSES: 1. Syncope with collapse. 2. Bradycardia, likely iatrogenically caused by her metoprolol. 3. Acute renal failure. The patient appears to be back at her baseline. 4. Diabetes. 5. Hypertension. 6. Congestive heart failure. HOSPITAL COURSE: Briefly, Ms. Gonzales is an 78-year-old female who presented to the ED with syncope collapse. She was at home. She went to the restroom and collapsed prior to getting there. She felt faint while she was walking to the restroom and was able to fall onto her bed. EMS was called and they noted that her heart rate was in the low 40s. After arriving in the ED, her heart rate was in the mid 50s after atropine. The patient was admitted to the hospital, started on IV fluids, held her Crestor, Lasix, and Januvia as well as her metoprolol which they feel like was because of her bradycardia, syncope and collapse, and held the Crestor, Lasix, and Januvia for her acute renal failure. Ms. Gonzales is being discharged back home today to follow up with her primary care provider. VITAL SIGNS: At the time of her discharge, temperature is 97.6 degrees, heart rate 52, respirations 20, blood pressure 117/54, O2 is 99% on room air. FOLLOWUP: Ms. Gonzales is being discharged back home to follow up with her primary care provider. She is take all medications as prescribed. She can return to the ED or call 911 for any worsening of symptoms. HOME MEDICATIONS AT DISCHARGE: 1. Centrum adult 1 each p.o. daily. 2. Crestor 20 mg p.o. daily. 3. Cymbalta 60 mg p.o. at bedtime. 4. Donepezil 5 mg p.o. daily. 5. Losartan potassium 50 mg p.o. daily. 6. Lyrica 150 mg p.o. b.i.d. 7. Memantine 10 mg p.o. b.i.d. 8. Mucinex DM 1 each p.o. daily. 9. Prilosec 20 mg p.o. daily. 10. Tizanidine 4 mg p.o. q.6 hours p.r.n. muscle spasms. 11. Trulicity 0.5 mg subcutaneously q.7 days. Dictated by AARON De Jesus for Dennis Chery MD cc: Dennis Chery MD
--- NOTE | 2019-01-17 15:51 | DISCHARGE SUMMARY ---
ADMISSION DATE: 01/16/2019 DISCHARGE DATE: 01/17/2019 DISCHARGE DIAGNOSES: 1. Syncope with collapse, resolved. 2. Bradycardia, resolved, likely iatrogenically caused by Toprol which has been held. 3. Acute renal failure. Unsure of the exact etiology, although her creatinine has improved very slightly. She is on Januvia, which certainly could be affecting her renal dysfunction as well as her diabetes hypertension. We also held Lasix. 4. Diabetes. 5. Hypertension. 6. History of congestive heart failure. CONSULTATIONS: None. PROCEDURES: None. BRIEF HOSPITAL COURSE: The patient is an 78-year-old female who presented to the hospital secondary to a syncopal episode. The patient herself did not actually want to get admitted to the hospital. Thankfully, however, after admission, she has had no further complications. No further issues. She has been able to ambulate without any difficulty. We did hold her Lasix, which certainly could be contributing to volume depletion. We held her Toprol and her Januvia. Her A1c is actually 6.2. DISPOSITION: Patient will be discharged home. She will continue to hold her medications. She will follow up outpatient with her primary care, I believe Dr. Dick. TIME SPENT: Greater than 30 minutes was spent in total care. cc: Dennis Chery MD
[2019-01-17] MEDS ORDERED: CYMBALTA PO SCH (21:00)
--- NOTE | 2019-01-20 09:36 | EKG Report ---
Test Performed on : 01/16/2019 3:47:57 PM Test Reason : ER Blood Pressure : / mmHG Vent. Rate : 068 BPM Atrial Rate : 068 BPM P-R Int : 304 ms QRS Dur : 114 ms QT Int : 468 ms P-R-T Axes : 030 -46 011 degrees QTc Int : 497 ms Sinus rhythm. with 1st degree AV block. Left axis deviation Septal infarct (cited on or before 23-NOV-2009) Abnormal ECG When compared with ECG of 16-MAR-2018 10:21, T wave inversion no longer evident in Anterior leads Unconfirmed Result
== END 2019-01-17 11:10 | disposition home or self-care (01) | DRG 309 ==
LOC: P.ED 15:39 → P.MEDSURG 18:19
PROVIDERS: ATTEND Family Medicine

== ENCOUNTER 2019-02-13 11:32 | Inpatient (IN) ==
[2019-02-13] MEDS ORDERED: NS 1,000 ML IV ONE (12:11)
--- NOTE | 2019-02-13 12:32 | Diag Imaging Result Doc PS360 ---
EXAM: CT HEAD W/O CONTRAST HISTORY: altered mental status TECHNIQUE: CT head without contrast COMPARISON: 01/16/2019 FINDINGS: No parenchymal hemorrhage. No epidural or subdural hematoma. No subarachnoid hemorrhage. There is mild to moderate atrophy with mild chronic microvascular ischemic changes. No mass identified on this noncontrasted exam. No hydrocephalus. No sinus opacification. IMPRESSION: 1.No hemorrhage 2.Atrophy with chronic microvascular ischemic changes This exam was performed using automated exposure control, adjustment of mA or kV according to patient size, and/or use of iterative reconstruction technique. Electronically signed by Philipp Underwood 02/13/2019 12:30 PM
--- NOTE | 2019-02-13 12:32 | Diag Imaging Result Doc PS360 ---
EXAM: CHEST-PORTABLE HISTORY: ams, cough TECHNIQUE: Single view COMPARISON: 01/16/2019 FINDINGS: The lungs are well expanded. The heart is not enlarged. The vessels are not distended. There are no infiltrates. No effusion identified. IMPRESSION: No pneumonia Electronically signed by Philipp Underwood 02/13/2019 12:30 PM
[2019-02-13 12:40] LABS: BASO# 0.02 X1000 (0.0-0.2); BASO% 0.2 % (0.0-0.8); EOS# 0.06 X1000 (0.0-0.7); EOS% 0.6 % (0.0-10.0); HEMATOCRIT 55.8 % (37.0-47.0); HEMOGLOBIN 18.5 g/dL (12.0-16.0); LYMPH# 4.35 X1000 (1.2-3.4); LYMPH% 43.8 % (20.5-51.1); MCH 30.9 PG (27-31); MCHC 33.2 g/dL (33-37); MCV 93.2 FL (81-99); MONO# 0.48 X1000 (0.11-0.59); MONO% 4.8 % (1.7-9.3); MPV 11.5 FL (7.4-10.4); NEUT# 5.02 X1000 (1.4-6.5); NEUT% 50.6 % (42.2-75.2); PLT 158 X1000 (130-400); RBC 5.99 XMIL (4.2-5.4); RDW 15.3 % (11.5-14.5); WBC 9.93 X1000 (4.8-10.8)
--- NOTE | 2019-02-13 12:59 | EKG Report ---
Test Performed on : 02/13/2019 12:58:39 PM Test Reason : AMS Blood Pressure : / mmHG Vent. Rate : 068 BPM Atrial Rate : 068 BPM P-R Int : 242 ms QRS Dur : 108 ms QT Int : 506 ms P-R-T Axes : 014 -68 193 degrees QTc Int : 538 ms Sinus rhythm. with 1st degree AV block. Left axis deviation Septal infarct (cited on or before 23-NOV-2009) T wave abnormality, consider inferolateral ischemia Prolonged QT Abnormal ECG When compared with ECG of 16-JAN-2019 15:47, (Unconfirmed) T wave inversion now evident in Anterolateral leads Unconfirmed Result
[2019-02-13 13:10] LABS: ALLEN TEST YES; BE -7.6 mmoll (-3.0-3.0); BLOOD TYPE ARTERIAL; HCO3-(ACT) 18.8 mmoll (20.0-26.0); METHB 0.7 % (0.0-1.5); O2(CT) 23.4 mL/dL (15.0-23.0); PCO2(98.6) 31 mmHg (35-45); PO2(98.6) 65 mmHg (60-100); SAMPLE BLOOD; SAO2 94.4 % (95.0-100.0); THB 18.1 g/dL (11.5-17.4); pH(98.6) 7.34 (7.35-7.45)
[2019-02-13 13:11] LABS: MODALITY ROOM AIR
[2019-02-13 13:31] LABS: INR 1.1; PROTIME 14.3 Seconds (11.0-16.0)
[2019-02-13 13:32] LABS: PTT 24.1 Seconds (22.3-41.8)
[2019-02-13 13:42] LABS: URINE SOURCE CLEAN CATCH
[2019-02-13 13:51] LABS: BILIRUBIN URINE NEGATIVE (NEGATIVE); BLOOD URINE NEGATIVE (NEGATIVE); COLOR YELLOW; GLUCOSE URINE NEGATIVE (NEGATIVE); KETONE URINE 10 mg/dL (NEGATIVE); LEUKOCYTES URINE LARGE (NEGATIVE); NITRITE URINE NEGATIVE (NEGATIVE); PH URINE 5.5; PROTEIN URINE TRACE mg/dL (NEGATIVE); SP GRAVITY URINE 1.013; TURBIDITY URINE CLEAR (CLEAR); UROBILINOGEN URINE NORMAL (NORMAL)
[2019-02-13 13:52] LABS: UR EPITHELIAL CELLS <10 /HPF (<10); URINE BACTERIA NEGATIVE /HPF; URINE RBC <10 /HPF (<10); URINE WBC 20-40 /HPF (<10)
[2019-02-13 13:59] LABS: UR AMPHETAMINES QUAL NONE DETECTED (NONE DETECT); UR BARBITUATES QUAL NONE DETECTED (NONE DETECT); UR BENZODIAZEPIN QUAL NONE DETECTED (NONE DETECT); UR CANNABINOIDS QUAL NONE DETECTED (NONE DETECT); UR COCAINE QUAL NONE DETECTED (NONE DETECT); UR METHADONE QUAL NONE DETECTED (NONE DETECT); UR OPIATES QUAL NONE DETECTED (NONE DETECT); UR OXYCODONE QUAL NONE DETECTED (NONE DETECT); UR PCP QUAL NONE DETECTED (NONE DETECT)
[2019-02-13 14:25] LABS: ACETAMINOPHEN < 1.2 ug/mL (10-30); AGAP 18; ALB/GLOB RATIO 1.5; ALBUMIN 4.6 g/dL (3.5-5.0); ALKALINE PHOSPHATASE 73 U/L (32-104); BUN 49 mg/dL (8-22); CALCIUM 9.6 mg/dL (8.8-10.2); CHLORIDE 97 mmol/L (98-107); CK PROFILE 21 U/L (24-173); COSMO 287; ESTIMATED GFR 24; GLUCOSE 111 mg/dL (70-104); GOT 22 U/L (10-30); GPT 19 U/L (10-36); POTASSIUM 4.4 mmol/L (3.5-5.1); SALICYLATES < 3.00 mg/dL (3-10); SODIUM 137 mmol/L (136-145); TCO2 22 mmol/L (25-35); TOTAL BILIRUBIN 0.74 mg/dL (0.20-1.00); TOTAL PROTEIN 7.6 g/dL (6.3-8.3)
[2019-02-13] MEDS ORDERED: DOXYCYCLINE PO ONE (15:17)
--- NOTE | 2019-02-13 15:57 | PROVIDER DOCUMENTATION ---
This chart was entered by Sabine Meneses Scribe, acting as scribe for Alfred Paredes MD. HPI-Psychological Disorder - General Chief Complaint: Altered Mental Status Stated Complaint: Poss Dehydration Time Seen by Provider: 02/13/19 11:58 Source: family () Allergies/Adverse Reactions: Patient Allergies Allergy/AdvReac Type Severity Reaction Status Date / Time Cephalosporins Allergy Mild HIVES Verified 01/16/19 15:50 Penicillins Allergy Mild HIVES Verified 01/16/19 15:50 Sulfa (Sulfonamide Allergy Mild HIVES Verified 01/16/19 15:50 Antibiotics) codeine Allergy NAUSEA/VOMI Verified 01/16/19 15:50 TING erythromycin base Allergy HIVES Verified 01/16/19 15:50 [Erythromycin Base] levofloxacin [From Levaquin] Allergy HIVES Verified 01/16/19 15:50 nitrofurantoin Allergy HIVES Verified 01/16/19 15:50 [From Macrobid] nitrofurantoin Allergy HIVES Verified 01/16/19 15:50 macrocrystalline * [From Macrobid] haloperidol [From Haldol] AdvReac Unknown Verified 01/16/19 15:50 haloperidol lactate * AdvReac Unknown Verified 01/16/19 15:50 [From Haldol] Home Medications: Home Medication List Medication Instructions Recorded Confirmed Last Taken Type Duloxetine [Cymbalta] 60 mg PO HS 10/08/13 02/13/19 03/02/18 19:00 History Pregabalin [Lyrica] 150 mg PO BID 04/26/15 02/13/19 03/03/18 08:00 History Guaifenesin/Dm E.r. [Mucinex Dm] 1 each PO DAILY 03/16/18 02/13/19 Unknown His tory Multivitamin/Iron/Folic Acid 1 each PO DAILY 03/16/18 02/13/19 Unknown History [Centrum Adults Tablet] Omeprazole [Prilosec] 20 mg PO DAILY@0700 03/16/18 02/13/19 Unknown History ROSUVAstatin [Crestor] 20 mg PO DAILY 03/16/18 02/13/19 Unknown History Donepezil HCl 5 mg PO DAILY 01/16/19 02/13/19 Unknown History Dulaglutide [Trulicity] 0.75 mg SQ Q7D 01/16/19 02/13/19 Unknown History Losartan Potassium 50 mg PO DAILY 01/16/19 02/13/19 Unknown History Memantine HCl 10 mg PO BID 01/16/19 02/13/19 Unknown History Tizanidine HCl 4 mg PO Q6H PRN 01/16/19 02/13/19 Unknown History Benzonatate 1 cap PO PRN PRN 02/13/19 02/13/19 02/13/19 History - History of Present Illness-Psych Nature of Presenting Problem: Patient is a 78 year old female who presents to the ED via EMS for being combative. Patient's states patient has been combative and refusing to take her medication. History of dementia. Onset/Duration: reports: gradual Timing: reports: still present Severity: reports: mild Psychiatric Complaints: reports: other (combative) Previous psych related hospitalizations?: Yes Patient arrived by:: EMS called by spouse/family () Similar Symptoms Previously?: Yes Recently seen or treated by another doctor?: Yes Review of Systems - Adult - REVIEW OF SYSTEMS - ADULT ROS:: ROS per family () Constitutional: reports: no symptoms reported Eyes: reports: no symptoms reported Ears, Nose, Mouth & Throat: reports: no symptoms reported Cardiovascular: reports: no symptoms reported Respiratory: reports: no symptoms reported Gastrointestinal: reports: no symptoms reported Genitourinary: reports: no symptoms reported Musculoskeletal: reports: no symptoms reported Integumentary: reports: no symptoms reported Neurological: reports: no symptoms reported Psychiatric: reports: see HPI, other (combative). denies: anxiety, depression Endocrine: reports: no symptoms reported Hematologic/Lymphatic: reports: no symptoms reported Allergic/Immunologic: reports: no symptoms reported All Other Systems: Reviewed and Negative Past History - Adult - PAST MEDICAL HISTORY-ADULT Review of Records: reports: Old Records Reviewed, Nursing Assessment Review, Medications Reviewed, Social history reviewed & non-contributory. Major Childhood Illnesses: reports: denies history Cardiovascular: reports: arrhythmia, CHF, HTN, other (dysrhythmis) Respiratory: reports: asthma, COPD Gastrointestinal: reports: GERD Obstetrical/Gynecological: reports: denies history Genitourinary: reports: dialysis, kidney disease Musculoskeletal: reports: denies history Neurological: reports: CVA, dementia, Seizures/Epilepsy Psychiatric: reports: anxiety Endocrine/Immune: reports: anemia, Diabetes, hypoglycemia Other Conditions: reports: other (pleural effusion) - PRIOR SURGERIES/PROCEDURES Surgical/Procedure History: reports: appendectomy, hysterectomy, tonsillectomy - IMMUNIZATION STATUS Childhood Immunizations: UTD Flu Vaccine: UTD - FAMILY HISTORY Family History: reviewed, not pertinent - SOCIAL HISTORY Smoking: cigarettes (former) Substance Use: denies Living Situation: family Physical Exam-Psych Focus - Physical Exam-Psych Initial Vital Signs Reviewed: Yes Appearance: neat, no apparent distress, alert. negative: anxious Neurological: alert, calm. negative: agitated Behavior/Eye Contact/Speech: cooperative, good eye contact, normal speech. negative: belligerent, compulsive Thoughts/Hallucinations: normal thought pattern, no apparent hallucination. negative: auditory hallucinations, tactile hallucinations, visual hallucinations HENMT: normocephalic/atraumatic, moist mucous membranes. negative: angioedema Respiratory: chest non-tender, rhonchi (scattered), wheezing (expiratory). negative: rales, stridor Cardiovascular: regular rate, rhythm, no gallop, no murmur. negative: tachycardia Abdominal Exam: normal bowel sounds, non tender, soft. negative: distended, rigid Extremity: non-tender, normal inspection. negative: pedal edema Integumentary: normal color, normal turgor, warm/dry. negative: diaphoresis, ecchymosis, pallor Progress - PLAN OF CARE/RESULTS Progress/Plan/Lab Results: Vital Signs - 8 hr 02/13/19 11:40 02/13/19 11:49 02/13/19 12:30 Temperature 98.0 F Pulse Rate 69 68 69 Respiratory Rate 18 14 18 Blood Pressure 146/79 143/102 143/77 O2 Sat by Pulse Oximetry 95 99 02/13/19 12:45 02/13/19 13:00 02/13/19 13:15 Temperature Pulse Rate 67 70 67 Respiratory Rate 18 16 20 Blood Pressure O2 Sat by Pulse Oximetry 98 96 98 02/13/19 13:34 02/13/19 14:00 02/13/19 14:15 Temperature Pulse Rate 77 76 62 Respiratory Rate 20 17 16 Blood Pressure O2 Sat by Pulse Oximetry 98 96 02/13/19 12:13 Influenza Screen - Final Nasopharyngeal Laboratory Results - last 24 hr 02/13/19 02/13/19 02/13/19 12:01 12:13 12:51 WBC 9.93 RBC 5.99 H Hgb 18.5 H Hct 55.8 H MCV 93.2 MCH 30.9 MCHC 33.2 RDW Std Deviation 15.3 H Plt Count 158 MPV 11.5 H Neut % (Auto) 50.6 Lymph % (Auto) 43.8 Jay % (Auto) 4.8 Eos % (Auto) 0.6 Baso % (Auto) 0.2 Neut # (Auto) 5.02 Lymph # (Auto) 4.35 H Jay # (Auto) 0.48 Eos # (Auto) 0.06 Baso # (Auto) 0.02 PT 14.3 INR 1.10 PTT (Actin FS) 24.1 Specimen Type Sample Site pH pCO2 pO2 HCO3 Base Excess Oxyhemoglobin ABG O2 Sat (Calculated) ABG O2 Saturation ABG Carboxyhemoglobin ABG Methemoglobin Otilio Test A-a O2 Difference Total Hemoglobin Lactate Blood Gas Modality FiO2 % Sodium Potassium Chloride Carbon Dioxide Anion Gap BUN Creatinine Estimated GFR/1.73 m2 BUN/Creatinine Ratio Glucose POC Glucose 97 Calculated Osmolality Calcium Total Bilirubin AST ALT Alkaline Phosphatase Creatine Kinase Troponin T Total Protein Albumin Globulin Albumin/Globulin Ratio Plasma Lactate Vitamin B12 Urine Source Urine Color Urine Turbidity Urine pH Ur Specific [place] Urine Protein Ur Glucose (Stick) Ur Ketones (Stick) Urine Blood Urine Nitrite Urine Bilirubin Urobilinogen Dipstick Urine Leukocytes Urine WBC (Auto) Urine RBC (Auto) U Epithel Cells (Auto) Urine Bacteria (Auto) Salicylates Urine Opiates Screen Ur Oxycodone Screen Ur Methadone, Qual Acetaminophen Ur Barbiturates Screen Ur Phencyclidine Scrn Ur Amphetamines Screen U Benzodiazepines Scrn Urine Cocaine Screen U Cannabinoids Screen Plasma/Serum Ethyl Alc 02/13/19 02/13/19 02/13/19 12:55 13:22 13:22 WBC RBC Hgb Hct MCV MCH MCHC RDW Std Deviation Plt Count MPV Neut % (Auto) Lymph % (Auto) Jay % (Auto) Eos % (Auto) Baso % (Auto) Neut # (Auto) Lymph # (Auto) Jay # (Auto) Eos # (Auto) Baso # (Auto) PT INR PTT (Actin FS) Specimen Type ARTERIAL Sample Site R RADIAL pH 7.34 L pCO2 31 L pO2 65 HCO3 18.8 L Base Excess -7.6 L Oxyhemoglobin 92.0 L ABG O2 Sat (Calculated) 23.4 H ABG O2 Saturation 94.4 L ABG Carboxyhemoglobin 1.80 ABG Methemoglobin 0.7 Otilio Test YES A-a O2 Difference 46.0 Total Hemoglobin 18.1 H Lactate 1.20 Blood Gas Modality ROOM AIR FiO2 % 21.0 Sodium 137 Potassium 4.4 Chloride 97 L Carbon Dioxide 22 L Anion Gap 18 BUN 49 H Creatinine 2.0 H Estimated GFR/1.73 m2 24 BUN/Creatinine Ratio 25 Glucose 111 H POC Glucose Calculated Osmolality 287 Calcium 9.6 Total Bilirubin 0.74 AST 22 ALT 19 Alkaline Phosphatase 73 Creatine Kinase 21 L Troponin T Total Protein 7.6 Albumin 4.6 Globulin 3.0 Albumin/Globulin Ratio 1.5 Plasma Lactate Vitamin B12 Urine Source Urine Color Urine Turbidity Urine pH Ur Specific [place] Urine Protein Ur Glucose (Stick) Ur Ketones (Stick) Urine Blood Urine Nitrite Urine Bilirubin Urobilinogen Dipstick Urine Leukocytes Urine WBC (Auto) Urine RBC (Auto) U Epithel Cells (Auto) Urine Bacteria (Auto) Salicylates < 3.00 L Urine Opiates Screen Ur Oxycodone Screen Ur Methadone, Qual Acetaminophen < 1.2 L Ur Barbiturates Screen Ur Phencyclidine Scrn Ur Amphetamines Screen U Benzodiazepines Scrn Urine Cocaine Screen U Cannabinoids Screen Plasma/Serum Ethyl Alc 02/13/19 02/13/19 02/13/19 13:22 13:22 13:22 WBC RBC Hgb Hct MCV MCH MCHC RDW Std Deviation Plt Count MPV Neut % (Auto) Lymph % (Auto) Jay % (Auto) Eos % (Auto) Baso % (Auto) Neut # (Auto) Lymph # (Auto) Jay # (Auto) Eos # (Auto) Baso # (Auto) PT INR PTT (Actin FS) Specimen Type Sample Site pH pCO2 pO2 HCO3 Base Excess Oxyhemoglobin ABG O2 Sat (Calculated) ABG O2 Saturation ABG Carboxyhemoglobin ABG Methemoglobin Otilio Test A-a O2 Difference Total Hemoglobin Lactate Blood Gas Modality FiO2 % Sodium Potassium Chloride Carbon Dioxide Anion Gap BUN Creatinine Estimated GFR/1.73 m2 BUN/Creatinine Ratio Glucose POC Glucose Calculated Osmolality Calcium Total Bilirubin AST ALT Alkaline Phosphatase Creatine Kinase Troponin T 0.019 Total Protein Albumin Globulin Albumin/Globulin Ratio Plasma Lactate 1.6 Vitamin B12 1044 H Urine Source Urine Color Urine Turbidity Urine pH Ur Specific [place] Urine Protein Ur Glucose (Stick) Ur Ketones (Stick) Urine Blood Urine Nitrite Urine Bilirubin Urobilinogen Dipstick Urine Leukocytes Urine WBC (Auto) Urine RBC (Auto) U Epithel Cells (Auto) Urine Bacteria (Auto) Salicylates Urine Opiates Screen Ur Oxycodone Screen Ur Methadone, Qual Acetaminophen Ur Barbiturates Screen Ur Phencyclidine Scrn Ur Amphetamines Screen U Benzodiazepines Scrn Urine Cocaine Screen U Cannabinoids Screen Plasma/Serum Ethyl Alc 02/13/19 02/13/19 13:36 13:36 WBC RBC Hgb Hct MCV MCH MCHC RDW Std Deviation Plt Count MPV Neut % (Auto) Lymph % (Auto) Jay % (Auto) Eos % (Auto) Baso % (Auto) Neut # (Auto) Lymph # (Auto) Jay # (Auto) Eos # (Auto) Baso # (Auto) PT INR PTT (Actin FS) Specimen Type Sample Site pH pCO2 pO2 HCO3 Base Excess Oxyhemoglobin ABG O2 Sat (Calculated) ABG O2 Saturation ABG Carboxyhemoglobin ABG Methemoglobin Otilio Test A-a O2 Difference Total Hemoglobin Lactate Blood Gas Modality FiO2 % Sodium Potassium Chloride Carbon Dioxide Anion Gap BUN Creatinine Estimated GFR/1.73 m2 BUN/Creatinine Ratio Glucose POC Glucose Calculated Osmolality Calcium Total Bilirubin AST ALT Alkaline Phosphatase Creatine Kinase Troponin T Total Protein Albumin Globulin Albumin/Globulin Ratio Plasma Lactate Vitamin B12 Urine Source CLEAN CATCH Urine Color YELLOW Urine Turbidity CLEAR Urine pH 5.5 Ur Specific [place] 1.013 Urine Protein TRACE A Ur Glucose (Stick) NEGATIVE Ur Ketones (Stick) 10 A Urine Blood NEGATIVE Urine Nitrite NEGATIVE Urine Bilirubin NEGATIVE Urobilinogen Dipstick NORMAL Urine Leukocytes LARGE A Urine WBC (Auto) 20-40 A Urine RBC (Auto) <10 U Epithel Cells (Auto) <10 Urine Bacteria (Auto) NEGATIVE Salicylates Urine Opiates Screen NONE DETECTED Ur Oxycodone Screen NONE DETECTED Ur Methadone, Qual NONE DETECTED Acetaminophen Ur Barbiturates Screen NONE DETECTED Ur Phencyclidine Scrn NONE DETECTED Ur Amphetamines Screen NONE DETECTED U Benzodiazepines Scrn NONE DETECTED Urine Cocaine Screen NONE DETECTED U Cannabinoids Screen NONE DETECTED Plasma/Serum Ethyl Alc Orders Category Date Time Status Cardiac Monitoring DIRECTED Care 02/13/19 12:06 Active Finger Stick Blood Sugar (ED) DIRECTED Care 02/13/19 12:06 Active Oxygen Therapy- ED Nursing DIRECTED Care 02/13/19 12:06 Active Saline Loc NOW Care 02/13/19 12:06 Active CHEST-PORTABLE [RAD] Stat Exams 02/13/19 12:[address] HEAD W/O CONTRAST [CT] Stat Exams 02/13/19 12:08 Completed ABG [RESP] Routine Lab 02/13/19 12:55 Completed ACETAMINOPHEN [TDM] Stat Lab 02/13/19 13:22 Completed ALCOHOL BLOOD Stat Lab 02/13/19 13:22 Completed CBC WITH ELECTRONIC DIFF [HEME] Stat Lab 02/13/19 12:13 Completed CK PROFILE [SP CHEM] Stat Lab 02/13/19 13:22 Completed COMPREHENSIVE METABOLIC PANEL [CHEM] Stat Lab 02/13/19 13:22 Completed INFLUENZA SCREEN A/B Stat Lab 02/13/19 12:13 Completed LACTATE, PLASMA [CHEM] Stat Lab 02/13/19 13:22 Completed PROTIME WITH INR [COAG] Stat Lab 02/13/19 12:51 Completed PTT [COAG] Stat Lab 02/13/19 12:51 Completed SALICYLATES [TDM] Stat Lab 02/13/19 13:22 Completed TROPONIN T Stat Lab 02/13/19 13:22 Completed URINALYSIS [URINALYSIS] Stat Lab 02/13/19 13:36 Completed URINE DRUG SCREEN Stat Lab 02/13/19 13:36 Completed VITAMIN B12 Stat Lab 02/13/19 13:22 Completed 0.9% Sodium Chloride Inj [Ns] 1,000 ml Med 02/13/19 12:11 Discontinued IV 999 mls/hr Doxycycline Med 02/13/19 15:17 Discontinued 100 mg PO NOW ONE Altered Mental Status Stat Oth 02/13/19 12:06 Ordered EKG [EKG] Stat Ther 02/13/19 12:06 Draft Result Diagrams: 02/13/19 12:13 02/13/19 13:22 - REASSESSMENT Reassessment #1 Time Reassessed: 15:54 Status: unchanged (GIven IVF and doxycycline po for uti. Patient does not wish to be admitted, but is obviously showing sings of dementia with behavioral disturbance. Patient's is uncomfortable watching her at home.) - EKG 1 Time of EKG reading by physician:: 13:02 EKG Read and Signed by:: Alfred Paredes EKG Interpretation (*Must complete 3 of following elements*): Abnormal Rate: 68 Rhythm: NSR [place]: left Comments: 1st degree AV block; prolonged QT - XRAY 1 XRAY Study: Chest Impression: See EMR Report (EXAM: CHEST-PORTABLE HISTORY: ams, cough TECHNIQUE: Single view COMPARISON: 01/16/2019 FINDINGS: The lungs are well expanded. The heart is not enlarged. The vessels are not distended. There are no infiltrates. No effusion identified. IMPRESSION: No pneumonia Electr onically signed by Philipp Underwood 02/13/2019 12:30 PM 02/13/19 1230 Interpreting Physician: Philipp Underwood MD Dictated Date/Time: 02/13/19 1230 cc: Alfred Paredes MD; Ori Dick Jr, MD) - CT/MRI 1 CT Study: Head Impression: See EMR Report ( EXAM: CT HEAD W/O CONTRAST HISTORY: altered mental status TECHNIQUE: CT head without contrast COMPARISON: 01/16/2019 FINDINGS: No parenchymal hemorrhage. No epidural or subdural hematoma. No subarachnoid hemorrhage. There is mild to moderate atrophy with mild chronic microvascular ischemic changes. No mass identified on this noncontrasted exam. No hydrocephalus. No sinus opacification. IMPRESSION: 1.No hemorrhage 2.Atrophy with chronic microvascular ischemic changes This exam was performed using automated exposure control, adjustment of mA or kV according to patient size, and/or use of iterative reconstruction technique. Electronically signed by Philipp Underwood 02/13/2019 12:30 PM 02/13/19 1230 Interpreting Physician: Philipp Underwood MD Dictated Date/Time: 02/13/19 1225 cc: Alfred Paredes MD; Ori Dick Jr, MD) - CONSULTS/PCP/HOSPITALIST Notification #1 *Consult/PCP/Hospitalist*: Dr. Vickers for Dr. Dick Time Discussed: 15:52 Reason/Comments: Dr. Paredes consulted with Dr. Vickers about patient. Consult Disposition: Will see in ED, Admit Departure - Departure Date of Disposition Decision: 02/13/19 Time of Disposition Decision: 15:52 DIAGNOSIS: Dehydration, mild, Urinary tract infection in female Dementia with behavioral disturbance Qualifiers: Dementia type: Alzheimer's disease Alzheimer's disease onset: late-onset Qualified Code(s): G30.1 - Alzheimer's disease with late onset; F02.81 - Dementia in other diseases classified elsewhere with behavioral disturbance Disposition: ADMITTED INPATIENT 09 Certified Medical Emergency: Emergent Condition: Stable Referrals and Follow-Ups: Ori Dick Jr, MD [Primary Care Provider] - - Critical Care Note This patient required my direct & personal management of CC.: No Attestation - Physician/ JOHN Attestation Patient care was provided by Advanced Practice Provider:: No The physician spent face to face time with patient:: Yes Advanced Practice Provider documentation review:: Supervising physician onsite and consulted in the evaluation and care of this patient. The physician did have a face to face encounter with the patient. This chart was documented by the indicated scribe, (Sabine Meneses Scribe) and accurately reflects the services I performed and decisions made by me, Alfred Paredes MD, as attested by the provider's signature.
[2019-02-13] MEDS ORDERED: ZOFRAN IV PRN (17:24)
[2019-02-13] MEDS ORDERED: TYLENOL PO PRN (17:24)
[2019-02-13] MEDS ORDERED: POTASSIUM CHLORIDE 10 MEQ in NS 1,000 ML IV ONE (17:27)
[2019-02-13] MEDS ORDERED: HUMULIN R SUBQ ONE (17:32)
[2019-02-13] MEDS ORDERED: ATIVAN IV PRN (17:32)
--- NOTE | 2019-02-13 18:49 | HISTORY AND PHYSICAL ---
CHIEF COMPLAINT: Confusion. HISTORY OF PRESENT ILLNESS: The patient is an 78-year-old white female followed by Dr. Ori Dick, who presents to the emergency room, brought in by ambulance. According to her , who lives with her and is her prevention coordinator, she has been worse with her mental status over the past 3 or 4 days. It has been hard to get her to eat or drink and take her medications. In fact, she stopped taking her medications in the last 24 hours and became combative with family members. There has been no definite history of fever. No nausea or vomiting. Emergency personnel were summoned to the house twice, and the second time they brought her to the hospital for evaluation. MEDICATIONS: Prior to admission: Cymbalta 60 mg p.o. at bedtime; Lyrica 150 mg p.o. b.i.d.; omeprazole 20 mg p.o. daily; Mucinex DM 1 p.o. daily; multivitamin 1 p.o. daily; Crestor 20 mg p.o. daily; Aricept 5 mg p.o. daily; losartan 50 mg p.o. daily; Namenda 10 mg p.o. b.i.d.; Zanaflex 4 mg p.o. q.6 hours p.r.n. muscle spasms; Trulicity 0.75 mg subcutaneous once weekly; Tessalon Perles 200 mg p.o. t.i.d. p.r.n. cough. ALLERGIES: Cephalosporins, penicillin, sulfa, codeine, erythromycin base, Levaquin, Macrobid and Haldol. PAST MEDICAL HISTORY: 1. Alzheimer dementia, advancing by 's report. 2. Type 2 diabetes mellitus. 3. Hypertension. 4. Hyperlipidemia. 5. Chronic kidney disease. 6. History of hemorrhoids. 7. CHF. 8. Gastroesophageal reflux disease. 9. History of cerebrovascular accident. 10. History of anxiety. 11. Possible history of seizure. 12. History of anemia. PAST SURGICAL HISTORY: 1. Appendectomy. 2. Hysterectomy. 3. Tonsillectomy. FAMILY HISTORY: Noncontributory. SOCIAL HISTORY: The patient [place] in the local area. She is . She quit smoking years ago. No alcohol or substance abuse. She and her have children. REVIEW OF SYSTEMS: As above. PHYSICAL EXAMINATION: VITAL SIGNS: Temperature 98 degrees, pulse 71, respirations 19, blood pressure 159/75, O2 saturation room air 100%. GENERAL: Elderly white female, not combative at present time, but very confused. She is alert. SKIN: No rashes. HEENT: NC/AT. PERRL. EOMI. Sclerae anicteric. TMs normal. OP: No redness. Tongue in the midline. NECK: No LA, TMG, JVD, bruits. CARDIOVASCULAR: RRR. No murmur. LUNGS: CTA. BACK: No CVA tenderness. ABDOMEN: Soft, NT, ND. No mass, no HSM. BREASTS: Deferred. PELVIS: Deferred. RECTAL: Deferred. EXTREMITIES: No calf tenderness, cords or edema. Peripheral pulses 2+. NEUROLOGIC: Cranial nerves 2-12 are intact. She moves all extremities well, follows some commands. She has some confusion. Alert and oriented x2. LABORATORY DATA: White count 9.93, hemoglobin 18.5, hematocrit 55.8, MCV 93, platelets 158,000, neutrophils 50%, lymphocytes 43, monocytes 4.8. PT 14.3, INR 1.1, PTT 24.1. ABG on room air revealed pH 7.34, pCO2 of 31, pO2 of 65, HCO3 is 18.8, O2 saturation 94.4%. Sodium 137, potassium 4.4, chloride 97, CO2 is 22, BUN 49, creatinine 2.0, glucose 111, calcium 9.6, total bilirubin 0.74, AST 22, ALT 19, alkaline phosphatase 73. Total CK 21, troponin 0.019. Total protein 7.6, albumin 4.6, plasma lactate 1.6. Vitamin B12 is 1044. Urinalysis: Fxn-[id number]-ld-count WBCs, large leukocytes, negative blood, negative nitrite, less than 10 epithelial cells, urine bacteria negative. This is a clean-catch specimen. Urine drug screen negative. Salicylates less than 3. Acetaminophen less than 1.2. Blood alcohol level 0. ASSESSMENT: 1. Delirium. 2. Worsening dementia. 3. Urinary tract infection. 4. Prerenal azotemia on top of chronic kidney disease, mild. 5. Hypertension. 6. Hyperlipidemia. 7. Type 2 diabetes mellitus. 8. Gastroesophageal reflux disease. 9. History of cerebrovascular accident. 10. Possible history of seizure in the past. 11. Chronic anxiety and depression. 12. Chronic pain, on Lyrica. PLAN: We will admit the patient. Blood cultures and urine culture obtained. The patient has been started on doxycycline orally per ER physician due to her many allergies and we will continue that. We will give her diabetic diet and monitor serial Accu-Chek with SSI as required. Continue many of her nonsedating home medications. We will give her Ativan as needed for agitation. Hydrate her with IV fluids. Get Box Fabricator consult in the morning, as the patient may require rehab or mcc placement, as this is her 's desire. cc: Ronaldo Vickers MD
[2019-02-13] MEDS: NAMENDA PO SCH (21:20)
[2019-02-13] MEDS: CYMBALTA PO SCH (21:20)
[2019-02-14 05:32] LABS: BASO# 0.02 X1000 (0.0-0.2); BASO% 0.2 % (0.0-0.8); EOS# 0.12 X1000 (0.0-0.7); EOS% 1.2 % (0.0-10.0); HEMATOCRIT 49.3 % (37.0-47.0); HEMOGLOBIN 16.3 g/dL (12.0-16.0); IMM GRAN# 0.07 X1000 (0.0-0.04); IMM GRAN% 0.7 % (0.0-0.5); LYMPH# 4.79 X1000 (1.2-3.4); LYMPH% 48.4 % (20.5-51.1); MCH 30.6 PG (27-31); MCHC 33.1 g/dL (33-37); MCV 92.5 FL (81-99); MONO# 0.59 X1000 (0.11-0.59); MPV 11.6 FL (7.4-10.4); NEUT% 43.5 % (42.2-75.2); PLT 155 X1000 (130-400); RBC 5.33 XMIL (4.2-5.4); WBC 9.89 X1000 (4.8-10.8)
[2019-02-14 06:06] LABS: CALCIUM 8.2 mg/dL (8.8-10.2); CREATININE 1.7 mg/dL (0.5-0.9); POTASSIUM 3.5 mmol/L (3.5-5.1)
[2019-02-14] MEDS: LYRICA PO SCH ×2 (09:30→20:24)
[2019-02-14] MEDS: DOXYCYCLINE PO SCH ×2 (09:30→20:24)
[2019-02-14] MEDS: ARICEPT PO SCH (09:30)
[2019-02-14] MEDS: CRESTOR PO SCH (09:30)
[2019-02-14] MEDS: NAMENDA PO SCH ×2 (09:30→20:25)
[2019-02-14] MEDS: CENTRUM SILVER PO SCH (09:30)
--- NOTE | 2019-02-14 11:15 | PROGRESS NOTE ---
DATE: 02/14/2019 SUBJECTIVE: The patient is feeling better. Her notices that her behavior is better. She was combative initially. She came in with altered mental status and a UTI. OBJECTIVE: Vital signs: Blood pressure is 125/65, respirations 17, pulse 80, temperature 98.1 degrees Fahrenheit, oxygen saturation is 94% on room air. HEENT: She is normocephalic. EOMS intact. PERRLA. Throat clear. Lungs: Clear to auscultation and percussion without rhonchi, rales, or wheezes. Heart: Regular rate and rhythm without murmurs, gallops, or friction rubs. Abdomen: Soft with active bowel sounds. She has mild generalized tenderness. I am not sure if this pathological. Neurologic Exam: Intact grossly. The patient is back to baseline for mentation. Urine cultures and blood cultures are pending. White count is still normal, hemoglobin 16.3, hematocrit 49.3. Initial creatinine 2.0, back down to 1.7 which is about her baseline. Potassium is 3.5, had been 4.4. Sodium 140. May have had a little dehydration with this. Urinalysis yesterday showed WBCs 20-40 per high-power field. Above cultures are pending. ASSESSMENT: 1. Altered mental status. 2. Urinary tract infection. PLAN: Will continue with doxycycline. She is allergic to several other medications. About the only other medicine we might consider would be vancomycin. Will await cultures since she is doing better. Another urinalysis has been ordered to see if she is improving. There have been some concern about whether she should go to rehab or to a fdc in the future. I asked the about this as Dr. Vickers as mentioned that he had talked with him about it and the said well he is not so sure now and that if she gets back to where she was he might want to take her home, just depends on how she does. I do have a Access Service Representative consult, they can talk with him. If it turns out that because of her underlying dementia that she needs further care at a facility or if he cannot take of her, they can consider placement, however, if she gets back to baseline and he is more comfortable with that then we can consider sending her home. cc: MD Ronaldo Gross Jr, MD
[2019-02-14 12:07] LABS: URINE SOURCE CLEAN CATCH
[2019-02-14 12:10] LABS: BILIRUBIN URINE NEGATIVE (NEGATIVE); BLOOD URINE NEGATIVE (NEGATIVE); COLOR YELLOW; GLUCOSE URINE NEGATIVE (NEGATIVE); KETONE URINE 20 mg/dL (NEGATIVE); LEUKOCYTES URINE LARGE (NEGATIVE); NITRITE URINE NEGATIVE (NEGATIVE); PROTEIN URINE 100 mg/dL (NEGATIVE); SP GRAVITY URINE 1.021; TURBIDITY URINE HAZY (CLEAR); UROBILINOGEN URINE NORMAL (NORMAL)
[2019-02-14 12:22] LABS: UR EPITHELIAL CELLS <10 /HPF (<10); URINE BACTERIA 3+ /HPF; URINE RBC <10 /HPF (<10); URINE WBC TNTC /HPF (<10)
[2019-02-14 12:23] LABS: URINE CASTS NONE SEEN; URINE CRYSTALS NONE SEEN; URINE SMALL ROUND CELLS NONE SEEN
[2019-02-14] MEDS: CYMBALTA PO SCH (20:24)
[2019-02-15 05:32] LABS: BASO# 0.03 X1000 (0.0-0.2); BASO% 0.3 % (0.0-0.8); EOS# 0.18 X1000 (0.0-0.7); HEMATOCRIT 50.7 % (37.0-47.0); HEMOGLOBIN 16.5 g/dL (12.0-16.0); IMM GRAN# 0.03 X1000 (0.0-0.04); IMM GRAN% 0.3 % (0.0-0.5); LYMPH# 4.18 X1000 (1.2-3.4); LYMPH% 46.5 % (20.5-51.1); MCH 30.6 PG (27-31); MCHC 32.5 g/dL (33-37); MCV 93.9 FL (81-99); MONO# 0.58 X1000 (0.11-0.59); MONO% 6.5 % (1.7-9.3); MPV 11.3 FL (7.4-10.4); NEUT# 3.99 X1000 (1.4-6.5); NEUT% 44.4 % (42.2-75.2); PLT 129 X1000 (130-400); RDW 15.2 % (11.5-14.5); WBC 8.99 X1000 (4.8-10.8)
[2019-02-15 06:15] LABS: CALCIUM 8.6 mg/dL (8.8-10.2); CREATININE 1.6 mg/dL (0.5-0.9); POTASSIUM 3.7 mmol/L (3.5-5.1)
[2019-02-15] MEDS: DOXYCYCLINE PO SCH ×2 (09:44→21:11)
[2019-02-15] MEDS: ARICEPT PO SCH (09:44)
[2019-02-15] MEDS: CRESTOR PO SCH (09:44)
[2019-02-15] MEDS: NAMENDA PO SCH ×2 (09:44→21:11)
[2019-02-15] MEDS: LYRICA PO SCH ×2 (09:45→21:11)
[2019-02-15] MEDS: CENTRUM SILVER PO SCH (09:45)
[2019-02-15] MEDS ORDERED: NON-FORMULARY BULK MED SUBQ ONE (12:33)
--- NOTE | 2019-02-15 13:18 | PROGRESS NOTE ---
DATE: 02/15/2019 SUBJECTIVE: An 78-year-old white female was admitted to the hospital on 02/13/2019 with altered mental status and UTI. Interval history was reviewed. Patient is anxious to go home. She is getting Trulicity which is not started. Apparently, the disposition is pending on Sunday, going for rehab. PAST MEDICAL HISTORY: Reviewed. PAST SURGICAL HISTORY: Reviewed. MEDICINES: Reviewed. ALLERGIES: Cephalosporin, penicillin, sulfa, Levaquin, nitrofurantoin. PHYSICAL EXAMINATION: Vital signs: Temperature is 97 degrees, pulse 73, blood pressure 117/69, 92% on room air. HEENT: Bilateral cataracts. No anemia. No cyanosis. No jaundice. Neck: Supple. No lymphadenopathy. No goiter. Chest: Bilateral air entry. Heart: Sounds are regular. Abdomen: Belly is soft, nontender. Good bowel sounds. Extremities: No peripheral edema. Neurologic: No obvious deficits. INVESTIGATIONS: White cell count 8.9, hematocrit 50, platelets 129,000. Sodium 142, potassium 3.7, BUN 35, creatinine 1.6, glucose 141. Urinalysis positive for UTI. Urine cultures grew gram- negative rods. Culture and sensitivity is pending. Blood cultures are negative. Influenza was negative. CT head, no hemorrhage, atrophy with chronic microvascular ischemic changes. EKG: Sinus rhythm, first-degree AV block, Q-waves in the inferior leads, poor R-wave progression. Chest x-ray stable. ASSESSMENT AND PLAN: 1. Altered mental status due to metabolic encephalopathy. 2. Chronic renal failure with azotemia. Continue IV fluids 65 mL an hour which was discontinued. We will check the SMA 7. 3. Dementia, on donepezil and Namenda. 4. Hyperlipidemia, on Crestor. 5. Urinary tract infection. The patient has been on doxycycline 100 p.o. b.i.d. since allergic to multiple medicines. 6. Chronic neuropathy, on Lyrica. 7. Hypertension. The patient is on Cozaar. Check the orthostatic blood pressure. 8. Type 2 diabetes, on Trulicity which was given today. 9. Disposition. We will hold on until Dr. Dick come back with the family about possible rehab placement LEVEL OF DOCUMENTATION: 35 minutes. cc: MD Ronaldo Lundy MD MTDD
[2019-02-15] MEDS: CYMBALTA PO SCH (21:11)
[2019-02-16 05:47] LABS: BASO# 0.02 X1000 (0.0-0.2); BASO% 0.3 % (0.0-0.8); EOS# 0.18 X1000 (0.0-0.7); EOS% 2.3 % (0.0-10.0); HEMATOCRIT 48.3 % (37.0-47.0); HEMOGLOBIN 15.6 g/dL (12.0-16.0); LYMPH# 3.41 X1000 (1.2-3.4); LYMPH% 44.5 % (20.5-51.1); MCH 30.2 PG (27-31); MCHC 32.3 g/dL (33-37); MCV 93.4 FL (81-99); MONO# 0.39 X1000 (0.11-0.59); MONO% 5.1 % (1.7-9.3); MPV 11.7 FL (7.4-10.4); NEUT# 3.67 X1000 (1.4-6.5); NEUT% 47.8 % (42.2-75.2); PLT 119 X1000 (130-400); RBC 5.17 XMIL (4.2-5.4); RDW 15.1 % (11.5-14.5); WBC 7.67 X1000 (4.8-10.8)
[2019-02-16 06:03] LABS: CALCIUM 8.8 mg/dL (8.8-10.2); CREATININE 1.4 mg/dL (0.5-0.9); POTASSIUM 3.5 mmol/L (3.5-5.1)
[2019-02-16] MEDS: DOXYCYCLINE PO SCH (09:04)
[2019-02-16] MEDS: CRESTOR PO SCH (09:04)
[2019-02-16] MEDS: NAMENDA PO SCH ×2 (09:04→20:46)
[2019-02-16] MEDS: ARICEPT PO SCH (09:04)
[2019-02-16] MEDS: LYRICA PO SCH ×2 (09:04→20:46)
[2019-02-16] MEDS: CENTRUM SILVER PO SCH (09:04)
--- NOTE | 2019-02-16 12:44 | PROGRESS NOTE ---
DATE: 02/16/2019 SUBJECTIVE: The patient is anxious to go home and urine cultures grew Proteus mirabilis. REVIEW OF SYSTEMS: None reported. PHYSICAL EXAMINATION: Vital Signs: Temperature is 97.8 degrees, pulse 75, blood pressure is 138/75, pulse oximetry 96 percent. HEENT: Examination within normal limits. Neck: Supple. Chest: Clear. Heart sounds are regular. Belly is soft, nontender. No obvious deficits noted. LABS: Urine cultures, Proteus mirabilis which is sensitive to Zosyn; resistant to Levaquin and Macrobid. CBC: White cell count 7.6, hematocrit 48, platelets 119,000. Sodium 140, potassium 3.5, chloride 106, BUN 29, creatinine 1.4, glucose 135. ASSESSMENT AND PLAN: 1. Abnormal electrocardiogram and currently asymptomatic. 2. Dementia, on Aricept and Namenda. 3. Hyperlipidemia, on Crestor. 4. Proteus mirabilis infection, currently on doxycycline. Patient is allergic to multiple medications. 5. Chronic neuropathy, on Lyrica. 6. Azotemia, is improving. 7. Disposition, with Dr. Dick in the morning about rehab versus home health and we will follow up. LEVEL OF DOCUMENTATION: 25 minutes. cc: MD Ronaldo Lundy MD
[2019-02-16] MEDS ORDERED: TOBRAMYCIN IV PER PHARMACY MISC SCH (15:15)
[2019-02-16] MEDS: NS IV SCH (17:26)
[2019-02-16] MEDS: TOBRAMYCIN IV SCH (17:26)
[2019-02-16] MEDS: CYMBALTA PO SCH (20:46)
[2019-02-17 05:38] LABS: BASO# 0.01 X1000 (0.0-0.2); BASO% 0.1 % (0.0-0.8); EOS# 0.15 X1000 (0.0-0.7); EOS% 1.9 % (0.0-10.0); HEMATOCRIT 44.9 % (37.0-47.0); HEMOGLOBIN 14.6 g/dL (12.0-16.0); LYMPH# 3.13 X1000 (1.2-3.4); LYMPH% 39.6 % (20.5-51.1); MCH 30.6 PG (27-31); MCHC 32.5 g/dL (33-37); MCV 94.1 FL (81-99); MONO% 5.1 % (1.7-9.3); NEUT# 4.22 X1000 (1.4-6.5); NEUT% 53.3 % (42.2-75.2); PLT 98 X1000 (130-400); RBC 4.77 XMIL (4.2-5.4); RDW 15.1 % (11.5-14.5); WBC 7.91 X1000 (4.8-10.8)
[2019-02-17 05:52] LABS: CALCIUM 8.5 mg/dL (8.8-10.2); CREATININE 1.4 mg/dL (0.5-0.9); POTASSIUM 3.4 mmol/L (3.5-5.1)
[2019-02-17 06:23] LABS: URINE SOURCE VOIDED
[2019-02-17 06:25] LABS: BILIRUBIN URINE NEGATIVE (NEGATIVE); BLOOD URINE TRACE (NEGATIVE); COLOR YELLOW; GLUCOSE URINE NEGATIVE (NEGATIVE); KETONE URINE NEGATIVE (NEGATIVE); LEUKOCYTES URINE LARGE (NEGATIVE); NITRITE URINE NEGATIVE (NEGATIVE); PROTEIN URINE 30 mg/dL (NEGATIVE); TURBIDITY URINE HAZY (CLEAR); UROBILINOGEN URINE NORMAL (NORMAL)
[2019-02-17 06:26] LABS: UR EPITHELIAL CELLS <10 /HPF (<10); URINE BACTERIA NEGATIVE /HPF; URINE RBC <10 /HPF (<10); URINE WBC TNTC /HPF (<10)
[2019-02-17] MEDS: CRESTOR PO SCH (08:01)
[2019-02-17] MEDS: LYRICA PO SCH ×2 (08:01→20:07)
[2019-02-17] MEDS: NAMENDA PO SCH ×2 (08:01→20:07)
[2019-02-17] MEDS: CENTRUM SILVER PO SCH (08:01)
[2019-02-17] MEDS: ARICEPT PO SCH (08:01)
--- NOTE | 2019-02-17 09:25 | PROGRESS NOTE ---
DATE: 02/17/2019 SUBJECTIVE: The patient still has confusion because of her dementia, but is probably back to baseline. She is getting physical therapy. She grew out Proteus mirabilis in her urine. It was sensitive to everything, but Macrobid that was tested. It was not sensitive to doxycycline apparently. It is sensitive to aminoglycosides. We have started her on tobramycin, but will watch closely since she has had some chronic kidney disease. Pharmacy is calculating the dosage, and we are doing levels as well. OBJECTIVE: Vital Signs: Blood pressure is 143/79, respirations 19, pulse 79, temperature 97.7 degrees. HEENT: She is normocephalic. EOMs intact. PERRLA. Throat clear. Lungs: Clear to auscultation and percussion without rhonchi, rales, or wheezes. Heart: Regular rate and rhythm without murmurs, gallops, friction rubs. Abdomen: Soft. Active bowel sounds. No organomegaly or tenderness. Neurological: Cranial nerves II through XII are intact grossly. Sensory and motor intact. Reflexes 1+ all. ASSESSMENT: 1. Urinary tract infection with multiple allergies. No oral medications available to treat. Have started her on intravenous tobramycin. Will do another urinalysis tomorrow. Continue to watch her kidney function. 2. Dementia. 3. Falls. Plan continued physical therapy. cc: MD Ronaldo Gross Jr, MD
[2019-02-17] MEDS: CYMBALTA PO SCH (20:07)
[2019-02-18 05:34] LABS: CALCIUM 9.1 mg/dL (8.8-10.2); CREATININE 1.3 mg/dL (0.5-0.9); POTASSIUM 3.7 mmol/L (3.5-5.1)
[2019-02-18 07:36] LABS: URINE SOURCE CLEAN CATCH
[2019-02-18 08:01] LABS: BILIRUBIN URINE NEGATIVE (NEGATIVE); BLOOD URINE NEGATIVE (NEGATIVE); COLOR YELLOW; GLUCOSE URINE NEGATIVE (NEGATIVE); KETONE URINE NEGATIVE (NEGATIVE); LEUKOCYTES URINE LARGE (NEGATIVE); NITRITE URINE NEGATIVE (NEGATIVE); PH URINE 5.5; PROTEIN URINE TRACE mg/dL (NEGATIVE); SP GRAVITY URINE 1.019; TURBIDITY URINE CLEAR (CLEAR); UROBILINOGEN URINE NORMAL (NORMAL)
[2019-02-18 08:03] LABS: UR EPITHELIAL CELLS <10 /HPF (<10); URINE BACTERIA NEGATIVE /HPF; URINE RBC <10 /HPF (<10); URINE WBC TNTC /HPF (<10)
[2019-02-18] MEDS: NAMENDA PO SCH ×2 (08:14→20:28)
[2019-02-18] MEDS: LYRICA PO SCH ×2 (08:14→20:28)
[2019-02-18] MEDS: ARICEPT PO SCH (08:14)
[2019-02-18] MEDS: CENTRUM SILVER PO SCH (08:14)
[2019-02-18] MEDS: CRESTOR PO SCH (08:14)
--- NOTE | 2019-02-18 10:18 | PROGRESS NOTE ---
DATE: 02/18/2019 SUBJECTIVE: The patient states that she feels better. She is getting some physical therapy. She does not remember the physical therapy, but her said that she was walking the halls yesterday. OBJECTIVE: Vital signs: Temperature 97.7 degrees Fahrenheit. Pulse 77, respirations 16, blood pressure 170/88, but earlier was 144/78, oxygen saturation on room air is 98%. HEENT: She is normocephalic. EOMS intact. PERRLA. Throat clear. Lungs: Clear to auscultation and percussion without rhonchi, rales, or wheezes. Heart: Regular rate and rhythm without murmurs, gallops, or friction rubs. Abdomen: Soft. Active bowel sounds. No organomegaly or tenderness. Neurologic: Exam intact grossly. DIAGNOSTIC DATA: BUN is 27, creatinine is 1.3. Urinalysis with a clean-catch specimen showed WBCs too numerous to count. She has had a dose of tobramycin. She is growing Proteus mirabilis but has allergies to multiple medications, and there are no oral medications available to treat her condition. I am giving her tobramycin and watching her kidney function closely. Her random tobramycin level yesterday was 9.26. Pharmacy is calculating this for us. ASSESSMENT: 1. Proteus mirabilis urinary tract infection. 2. Multiple allergies to medications. 3. Dementia. 4. Diabetes mellitus. 5. Hypertension. PLAN: We will continue the tobramycin. We will get another urinalysis on 02/20/2019. I think she needs to stay in the hospital for an IV medications until this clears. The culture and sensitivity did show that she was sensitive to the tobramycin. cc: MD Ronaldo Gross Jr, MD
[2019-02-18] MEDS: TOBRAMYCIN IV SCH (17:24)
[2019-02-18] MEDS: NS IV SCH (17:24)
[2019-02-18] MEDS: CYMBALTA PO SCH (20:28)
[2019-02-19 05:42] LABS: CALCIUM 8.5 mg/dL (8.8-10.2); CREATININE 1.3 mg/dL (0.5-0.9); POTASSIUM 3.8 mmol/L (3.5-5.1)
--- NOTE | 2019-02-19 09:48 | PROGRESS NOTE ---
DATE: 02/19/2019 SUBJECTIVE: The patient says she feels fine. She has been up walking with physical therapy. We are treating her for a urinary tract infection with Proteus mirabilis with IV tobramycin. She is allergic to so many medications that there are no oral medications available to her that would work. We tried her on doxycycline but it is not sensitive to that. It was sensitive to everything else tested except for Macrobid but she is allergic to all the other drugs except for IV drugs such as tobramycin. She has had some renal failure so we are being careful with this. OBJECTIVE: HEENT: She is normocephalic. EOMs intact. PERRLA. Throat clear. Lungs: Clear to auscultation and percussion without rhonchi, rales, or wheezes. Heart: Regular rate and rhythm without murmurs, gallops, or friction rubs. Abdomen: Soft. Active bowel sounds. No organomegaly or tenderness. Neurological Examination: Intact grossly except for her dementia. Her creatinine is 1.3, BUN 27, glucose 123. She does have diabetes. Her last tobramycin level was two days ago and was 9.26. Her last urinalysis yesterday still showed [id number] WBCs but she had not been on the tobramycin for very long. We will do another urinalysis tomorrow. Blood pressure is 135/68, respirations 18, pulse 85, temperature 97.5 degrees Fahrenheit. ASSESSMENT: 1. Urinary tract infection with Proteus mirabilis. 2. Multiple drug allergies. 3. Diabetes mellitus. 4. Dementia. 5. Chronic kidney disease. PLAN: Continue with medications. We will get a catheter urine tomorrow. cc: MD Ronaldo Gross Jr, MD
[2019-02-19] MEDS: NAMENDA PO SCH ×2 (10:02→20:55)
[2019-02-19] MEDS: ARICEPT PO SCH (10:02)
[2019-02-19] MEDS: CRESTOR PO SCH (10:03)
[2019-02-19] MEDS: CENTRUM SILVER PO SCH (10:03)
[2019-02-19] MEDS: LYRICA PO SCH ×2 (10:03→20:55)
[2019-02-19] MEDS: CYMBALTA PO SCH (20:55)
[2019-02-20 06:14] LABS: CREATININE 1.3 mg/dL (0.5-0.9); POTASSIUM 4.1 mmol/L (3.5-5.1)
[2019-02-20 06:24] LABS: URINE SOURCE CLEAN CATCH
[2019-02-20 06:29] LABS: BILIRUBIN URINE NEGATIVE (NEGATIVE); BLOOD URINE NEGATIVE (NEGATIVE); COLOR YELLOW; GLUCOSE URINE NEGATIVE (NEGATIVE); KETONE URINE NEGATIVE (NEGATIVE); LEUKOCYTES URINE SMALL (NEGATIVE); NITRITE URINE NEGATIVE (NEGATIVE); PH URINE 5.5; PROTEIN URINE TRACE mg/dL (NEGATIVE); SP GRAVITY URINE 1.018; TURBIDITY URINE CLEAR (CLEAR); UROBILINOGEN URINE NORMAL (NORMAL)
[2019-02-20 06:31] LABS: UR EPITHELIAL CELLS <10 /HPF (<10); URINE BACTERIA NEGATIVE /HPF; URINE RBC <10 /HPF (<10)
--- NOTE | 2019-02-20 09:27 | PROGRESS NOTE ---
DATE: 02/20/2019 SUBJECTIVE: The patient says she feels fine. OBJECTIVE: Vital signs: Blood pressure is 120/74, respirations 18, pulse 106, temperature 97.6 degrees Fahrenheit. Oxygen saturation on room air is 100%. HEENT: She is normocephalic. EOMS intact. PERRLA. Throat clear. Lungs: Clear to auscultation and percussion without rhonchi, rales, or wheezes. Heart: Regular rate and rhythm without murmurs, gallops, friction rubs. Abdomen: Soft. Active bowel sounds. No organomegaly or tenderness. Neurological: Intact grossly except for dementia. LABORATORY DATA: Shows creatinine down to 1.3 which is probably her baseline. BUN 25. Her urinalysis today showed 10 to 20 WBCs which is an improvement, but she is not completely cleared of her urinary tract infection. ASSESSMENT: 1. Urinary tract infection. 2. Diabetes mellitus. 3. Dementia. PLAN: We will continue the tobramycin IV. She cannot take any oral medications for this. We will get another cath urine in the morning. It was done is a clean-catch though I had intended for to be a cath urine today. We will do a cath in-and-out urine tomorrow and see if she is cleared yet. cc: MD Ronaldo Gross Jr, MD
[2019-02-20] MEDS: NAMENDA PO SCH ×2 (09:41→20:12)
[2019-02-20] MEDS: LYRICA PO SCH ×2 (09:41→20:11)
[2019-02-20] MEDS: CRESTOR PO SCH (09:41)
[2019-02-20] MEDS: ARICEPT PO SCH (09:41)
[2019-02-20] MEDS: CENTRUM SILVER PO SCH (09:41)
[2019-02-20] MEDS: TOBRAMYCIN IV SCH (16:45)
[2019-02-20] MEDS: NS IV SCH (16:45)
[2019-02-20] MEDS: CYMBALTA PO SCH (20:11)
[2019-02-21 05:30] LABS: URINE SOURCE CATH
[2019-02-21 05:32] LABS: BILIRUBIN URINE NEGATIVE (NEGATIVE); BLOOD URINE NEGATIVE (NEGATIVE); COLOR YELLOW; GLUCOSE URINE NEGATIVE (NEGATIVE); KETONE URINE NEGATIVE (NEGATIVE); LEUKOCYTES URINE NEGATIVE (NEGATIVE); NITRITE URINE NEGATIVE (NEGATIVE); PH URINE 5.5; PROTEIN URINE TRACE mg/dL (NEGATIVE); SP GRAVITY URINE 1.018; TURBIDITY URINE CLEAR (CLEAR); UROBILINOGEN URINE NORMAL (NORMAL)
[2019-02-21 05:34] LABS: UR EPITHELIAL CELLS <10 /HPF (<10); URINE BACTERIA NEGATIVE /HPF; URINE RBC <10 /HPF (<10); URINE WBC <10 /HPF (<10)
[2019-02-21 05:58] LABS: CALCIUM 8.8 mg/dL (8.8-10.2); CREATININE 1.3 mg/dL (0.5-0.9); POTASSIUM 4.2 mmol/L (3.5-5.1)
[2019-02-21] MEDS: CRESTOR PO SCH (07:59)
[2019-02-21] MEDS: ARICEPT PO SCH (07:59)
[2019-02-21] MEDS: LYRICA PO SCH (07:59)
[2019-02-21] MEDS: NAMENDA PO SCH (07:59)
[2019-02-21] MEDS: CENTRUM SILVER PO SCH (07:59)
[2019-02-21 08:29] VITALS: BP 111/51
--- NOTE | 2019-02-21 09:40 | DISCHARGE SUMMARY ---
ADMISSION DATE: 02/13/2019 DISCHARGE DATE: 02/21/2019 FINAL DIAGNOSES: 1. Urinary tract infection with Proteus mirabilis. 2. Multiple drug allergies. 3. Adult onset diabetes mellitus. 4. Dementia. 5. Hyperlipidemia. 6. Chronic kidney disease. 7. Congestive heart failure. 8. Hypertension. HOSPITAL COURSE: The patient came in the hospital with a UTI. She grew out Proteus mirabilis in her urine. It was sensitive to most antibiotics but was not sensitive to Macrobid; however, she is allergic to all the oral medications tested. We initially started her on doxycycline hoping that would cover but then found out that it did not cover the infection. We started her on IV tobramycin, and I had pharmacy calculate this because of her chronic kidney disease. She is now finally cleared with the urinalysis done with a cath specimen that is normal this morning. She has no symptoms with this now. We just had to keep her in the hospital to give her the IV antibiotics due to her inability to take any of the oral antibiotics that the bacteria was sensitive to. PHYSICAL EXAMINATION: Vital Signs: Blood pressure is 111/51, respirations 18, pulse 71, temperature 97.9 degrees Fahrenheit. HEENT: She is normocephalic. EOMS intact. PERRLA. Throat clear. Lungs: Clear to auscultation and percussion without rhonchi, rales, or wheezes. Heart: Regular rate and rhythm without murmurs, gallops, friction rubs. Abdomen: Soft. Active bowel sounds. No organomegaly or tenderness. Neurologic: Exam intact grossly except for her dementia. PLAN: She was started on her IV tobramycin on 02/16/2019. Kidney function has remained stable. We will discharge home. We will see back in the office next week with a urinalysis and a chemistry profile. The patient did have physical therapy while she was in the hospital. cc: MD Ronaldo Gross Jr, MD
== END 2019-02-21 10:00 | disposition home health service (06) | DRG 689 ==
LOC: SUPCPDRO → ED 11:32 → 1N 20:19
PROVIDERS: ADMIT Family Medicine; ATTEND Emergency Medicine